=== PATIENT | female | born 1955 | race Caucasian/White ===

== ENCOUNTER → 2018-12-28 10:24 | Outpatient (CLI) | payer SELFPAY ==
--- NOTE | 2018-12-28 10:30 | CT_ITS ---
PROCEDURE: CT HEART W CALCIUM SCORE CLINICAL HISTORY: SCREENING COMPARISON: No exams were available for comparison TECHNIQUE: Axial images obtained with sagittal and coronal reformats. All CT scans at the facility use one or more dose reduction, viz: automated exposure control, ma/kV adjustment per patient size (including targeted exams where dose is matched to indication, i.e. head), or iterative reconstruction technique. FINDINGS: The coronary artery calcium score is 327 indicating a moderate plaque burden with high cardiovascular disease risk. Incidental Degenerative change thoracic spine. Old granulomatous disease IMPRESSION: Moderate plaque burden with high cardiovascular disease risk Dictated by: Paresh Gibbs MD 12/28/2018 18:20 Electronically signed by Paresh Gibbs MD in [place] 12/28/2018 18:20
== END ==
PROVIDERS: Visit Provider Internal Medicine Cardiovascular Disease
DX: Z13.6 Encounter for screening for cardiovascular disorders (principal)
CPT/HCPCS: 75571

== ENCOUNTER → 2019-01-22 07:52 | Outpatient (CLI) | payer BC, SELFPAY ==
--- NOTE | 2019-01-22 | CA_ITS ---
APPROVED REPORT Exam: Pharmacologic Technologist: Noelle Arriaga Ht: 5 ft 2 in Wt: 170 lbs BSA: 1.78 m2 HR: 62 bpm BP: 127/79 mmHg Indications: Abnormal CT Calcium Score Medical History Medications: Lisinopril,,,,, ClARITin,,,,, Ezetimbe,,,,, RoSUVASTATIN,,,,, Stress Test Details Test: Aris HR Resting HR: 67 bpm Max Heart Rate (APMHR): 159 bpm Max HR Achieved: 135 bpm Target HR (85% APMHR): 135 bpm % of APMHR: 84 Recovery HR: 72 bpm BP Resting BP: 127.0/79.0 mmHg Max BP: 184.0/72.0 mmHg Recovery BP: 160.0/84.0 mmHg ECG Clinical Exercise duration: 06:30 min Highest Stage Achieved: Exercise capacity: 7.0 METs Stress ECG Conclusion Resting ECG: Normal sinus rhythm Patient exercised 6:30 on Aris Protocol. Test stopped due to dyspnea, fatigue. Symptoms: No chest pain. Arrhythmias/Ectopy: None ST-T Changes: 1-1.[address] depression inferiorly and laterally. Conclusion: EKG changes positive for ischemia. Myview images reported separately. Test Summary REST . . . . . . . Sitting REST . . . . . . . Standing REST 14:59 0.0 0.0 67 . 127/ 79 . . Stage 1 01:00 10.0 1.7 90 . . . . Stage 1 02:00 10.0 1.7 100 . . . . Stage 1 03:00 10.0 1.7 102 . 170/ 80 . . Stage 2 01:00 12.0 2.5 116 . . . . Stage 2 02:00 12.0 2.5 121 . . . . Stage 2 . . . . . . . Myoview Injected Stage 2 03:00 12.0 2.5 130 . 175/ 76 . . Stage 3 00:30 14.0 3.4 135 . . . Stop exercise at 06:30 RECOVERY 01:00 0.0 0.0 92 . 184/ 72 . . RECOVERY 02:00 0.0 0.0 75 . 184/ 72 . . RECOVERY 03:00 0.0 0.0 76 . 184/ 72 . . RECOVERY 04:00 0.0 0.0 74 . 182/ 90 . . RECOVERY 05:00 0.0 0.0 71 . 160/ 84 . . RECOVERY 05:19 0.0 0.0 72 . 160/ 84 . . Electronically signed by : Rudolph Rivera, 01/23/2019 05:26:10
--- NOTE | 2019-01-22 07:54 | NM_ITS ---
APPROVED REPORT Exam: Nuclear Stress Test Indication: Fatigue, CAD, HTN, High cholesterol, Family history Patient Location: Outpatient Stress Tech: Noelle Arriaga [place] Tech:Hanh Mercado, ARRT, RT (R)(N) Ht: 5 ft 2 in Wt: 170 lbs Bra Size: 42D HR: 62 bpm BP: 127/79 mmHg BSA: 1.78 m2 BMI: 31.0 History: Fatigue, CAD, HTN, High cholesterol, Family history Procedure: Patient exercised on Aris protocol 6:30 minutes and sec, resting heart rate 62 bpm, resting blood pressure 127/79 mmHg, with exercise maximum heart rate achived was 135 bpm which is Greater than 85 % of the maximum predicted heart rate and blood pressure was 175/76 mmHg. Test was stopped due to dyspnea and fatigue. Patient denied any complaint of chest pain. Patient has Adequate exercise capacity, achieved 7.0 METs of workload on treadmill, the blood pressure response to exercise was Adequate. Electrocardiogram Resting electrocardiogram showed sinus rhythm right ventricular conduction delay, with exercise there is [address] segment depression noted from the baseline EKG. The EKG portion of the exercise Myoview is positive for ischemia. Cardiac Stress and Resting SPECT Images: Cardiac Stress and Resting SPECT images were obtained using technetium 99m Myoview 30.8 mCi stress and 10.80 mCi at rest. Gated SPECT with analysis of segmental wall motion and calculation of the ejection fraction also done. Cardiac stress and resting SPECT images show decreased tracer activity and anteroapical wall which improves on the resting images suggestive of reversible ischemia, computer derived ejection fraction is over 65% with no regional wall motion abnormality, right ventricle is normal size and contractility. This is study is technically limited due to patient's body habitus. Conclusion: 1. The EKG portion of the exercise Myoview is positive for ischemia, patient has adequate exercise capacity achieved 7 mets of workload on treadmill, the blood pressure response to exercise was adequate, there was no exercise-induced chest discomfort. 2. Scintigraphic evidence of mild reversible ischemia involving the anteroapical wall, computer derived ejection fraction is over 65% with no regional wall motion abnormality, right ventricle is normal size and contractility. This is study is technically limited due to patient's body habitus. 3. Likely abnormal myocardial perfusion imaging Electronically signed by : Rudolph Rivera, 01/23/2019 05:29:05
--- NOTE | 2019-01-22 07:54 | CA_ITS ---
APPROVED REPORT EXAM: Comprehensive 2D, Doppler, and color-flow Echocardiogram Strategic Planner: Yomaira Espinosa RDCS Ht: 5 ft 2 in Wt: 124lbs BSA: 1.56 BP: 125/67 mmHg Indications: Chest Pain, Shortness of Breath, Hyperlipidemia, Hypertension/HDD,EX SMOKER 2D Dimensions LVOT 1.50 cm (M/F) 1.5-2.5 M-Mode Dimensions RVDd 1.61 cm (0.9-2.6) LVDd 3.72 cm (3.5-5.7) LVDs 2.28 cm (3.5-5.7) IVSd 1.00 cm (0.6-1.1) PWd 1.07 cm (0.6-1.1) EF (Teich) 69.90% FS 38.70% EDV (Teich) 58.90 mL ESV (Teich) 17.70 mL LV Diastology E/A Ratio 0.83 Mitral Valve MV A Velocity 59.00 (40-130 cm/s) Left Ventricle Left atrium is mildly enlarged, left ventricle is normal size, visually estimated ejection fraction 55% with no regional wall motion abnormality, left ventricular wall thickness is upper limit of the normal. Grade 1 diastolic dysfunction seen without tissue Doppler evidence of raise left atrial pressure. Right Ventricle Right atrium and right ventricular normal size and contractility. Aortic Valve Aortic valve is minimally thickened and fibrosed, there is no aortic stenosis or aortic insufficiency. Mitral Valve Mitral valve is grossly normal, there is mild mitral regurgitation. Tricuspid Valve Tricuspid valve is grossly normal, there is mild tricuspid regurgitation. Tricuspid regurgitation jet velocity is inadequate for calculation of the right ventricular systolic pressure. Pulmonic Valve Pulmonic valve is poorly visualized. Great Vessels Aortic root is normal size. Pericardium No significant pericardial effusion noted. Conclusion 1. Mildly enlarged left atrium, normal left ventricular size, mild concentric left ventricular hypertrophy, visually estimated ejection fraction 55% with no regional wall motion abnormality, grade 1 diastolic dysfunction seen without tissue Doppler evidence of raise left atrial pressure. 2. Mild mitral and tricuspid regurgitation. 3. No significant pericardial effusion noted. Electronically signed by : Rudolph Rivera, 01/23/2019 05:40:58
--- NOTE | 2019-01-22 08:48 | HMH.ITSHM ---
Current Home Medications as stated by this patient Aracelis Palmer or motor vehicle field representative. []LISINOPRIL ROSUVASTATIN EZETIMBE CLARITIN
== END ==
PROVIDERS: PCP Internal Medicine; Visit Provider Urology
DX: R93.1 Abnormal findings on diagnostic imaging of heart and coronary circulation (principal); R07.9 Chest pain, unspecified; R06.02 Shortness of breath; I10 Essential (primary) hypertension; Z82.49 Family history of ischemic heart disease and other diseases of the circulatory system; Z87.891 Personal history of nicotine dependence
CPT/HCPCS: 78452; 93017; 93306; A9502

== ENCOUNTER → 2019-02-20 11:00 | Outpatient (CLI) | payer BC, SELFPAY ==
[2019-02-20 11:49] LABS: Anion Gap 14.4 mEq/L (5-15); Blood Urea Nitrogen 17 mg/dL (7-18); Calcium 8.6 mg/dL (8.5-10.1); Carbon Dioxide 27 mmol/L (21.0-32.0); Chloride 102 mmol/L (98-107); Creatinine,Serum 0.87 mg/dL (0.55-1.02); Estimated Glomerular Filt Rate 66 ml/min (>60); GFR (African American) 80 ML/MIN (>60); Glucose 114 mg/dL (74-106); Potassium 4.4 mmoL/L (3.5-5.1); Sodium 139 mmol/L (136-145)
== END ==
PROVIDERS: Visit Provider Urology
DX: I25.10 Atherosclerotic heart disease of native coronary artery without angina pectoris (principal); R42 Dizziness and giddiness; Z82.49 Family history of ischemic heart disease and other diseases of the circulatory system
CPT/HCPCS: 36415; 80048

== ENCOUNTER → 2019-04-05 09:31 | Outpatient (CLI) | payer BC, SELFPAY ==
[2019-04-05 11:23] LABS: Anion Gap 15.3 mEq/L (5-15); Blood Urea Nitrogen 15 mg/dl (7-17); Calcium 9.7 mg/dl (8.4-10.2); Carbon Dioxide 22 mmol/L (22.0-30.0); Chloride 104 mmol/L (98-107); Estimated Glomerular Filt Rate 63 ml/min (>60); GFR (African American) 77 ML/MIN (>60); Glucose 99 mg/dl (74-100); Potassium 4.3 mmoL/L (3.5-5.1); Sodium 137 mmol/L (136-145)
[2019-04-05 11:30] LABS: NT Pro Brain Natriuretic Pep. 102 pg/mL (0-125)
== END ==
PROVIDERS: Visit Provider Internal Medicine Cardiovascular Disease
DX: R06.09 Other forms of dyspnea (principal); I25.10 Atherosclerotic heart disease of native coronary artery without angina pectoris; R53.83 Other fatigue
CPT/HCPCS: 36415; 80048; 83880

== ENCOUNTER → 2019-04-15 09:51 | Outpatient (CLI) | payer BC, SELFPAY ==
--- NOTE | 2019-04-15 09:55 | CA_ITS ---
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 Semiautomatic: Elizabeth Barnett RVT Laterality: Bilateral Study Quality: Excellent Indications: dizziness,face and head tingling Risk Factors Hypertension: Hyperlipidemia Doppler Spectral Velocity Analysis ECA (R) 91.40/16.50 cm/s ECA (L) 86.00/21.20 cm/s dICA (R) 88.00/33.10 cm/s dICA (L) 88.40/35.40 cm/s Anna (R) 36.90/12.00 cm/s Anna (L) 99.00/37.10 cm/s pICA (R) 55.50/16.40 cm/s pICA (L) 86.10/27.70 cm/s dCCA (R) 58.60/16.40 cm/s dCCA (L) 81.30/28.30 cm/s pCCA (R) 110.70/28.40 cm/s pCCA (L) 79.60/20.00 cm/s Vert (R) 74.90/24.80 cm/s Vert (L) 57.80/19.90 cm/s ICA/CCA 1.50 ICA/CCA 1.22 Findings Study suggests no evidence of stenosis in the right internal cartoid artery. Study suggests less than 20% stenosis in the left internal cartoid artery. Antegrade flow seen bilateral vertebral arteries. Conclusion No increased velocities to suggest hemodynamically significant stenosis in either internal carotid artery. Electronically signed by : Paresh Gibbs MD 04/15/2019 17:43:45
== END ==
PROVIDERS: PCP Internal Medicine; Visit Provider Internal Medicine Cardiovascular Disease
DX: Z01.810 Encounter for preprocedural cardiovascular examination (principal); I25.10 Atherosclerotic heart disease of native coronary artery without angina pectoris; R20.2 Paresthesia of skin; R42 Dizziness and giddiness
CPT/HCPCS: 93880

== ENCOUNTER → 2019-06-26 13:05 | Outpatient (CLI) | payer BC, SELFPAY | PROVIDERS: PCP Internal Medicine; Visit Provider Specialist | DX: G47.33 Obstructive sleep apnea (adult) (pediatric) (principal); R06.83 Snoring; I25.10 Atherosclerotic heart disease of native coronary artery without angina pectoris; I10 Essential (primary) hypertension | CPT/HCPCS: G0399 ==

== ENCOUNTER → 2020-11-09 12:23 | Outpatient (CLI) | payer BC, SELFPAY ==
[2020-11-09 12:48] LABS: Basophils # 0.1 K/mm3 (0-0.2); Basophils % 1.2 % (0.1-2.0); Eosinophils # 0.5 K/mm3 (0.0-0.4); Eosinophils % 5.3 % (0.1-12.0); Hematocrit 42.4 % (37.0-47.0); Hemoglobin 13.6 g/dL (12.2-16.2); Lymphocytes # 2.5 K/mm3 (0.7-4.5); Lymphocytes % 29.5 % (10-50); Mean Corpuscular HGB Conc 32.1 g/dL (31.8-35.4); Mean Corpuscular Hemoglobin 30.3 pg (27.0-31.2); Mean Corpuscular Volume 94.6 fl (81-99); Mean Platelet Volume 7.6 fl (7.4-10.4); Monocytes # 0.5 K/mm3 (0.1-1.0); Monocytes % 5.5 % (1.7-9.3); Neutrophils % 58.5 % (37.0-80.0); Platelet Count 389 K/mm3 (142-424); Red Blood Count 4.48 M/mm3 (4.20-5.40); Red Cell Distribution Width 13.4 % (11.5-17.5); White Blood Count 8.6 K/mm3 (4.8-10.8)
[2020-11-09 13:18] LABS: Chloride 102 mmol/L (98-107); Potassium 3.8 mmoL/L (3.5-5.1); Sodium 140 mmol/L (136-145)
[2020-11-09 13:21] LABS: Alanine Aminotransferase 48 U/L (12-78); Albumin Level 4.3 g/dl (3.5-5.0); Albumin/Globulin Ratio 1.5 (1.1-1.8); Alkaline Phosphatase 64 U/L (38-126); Anion Gap 12.8 mEq/L (5-15); Aspartate Amino Transferase 49 U/L (14-36); Blood Urea Nitrogen 17 mg/dl (7-17); Calcium 9.8 mg/dl (8.4-10.2); Carbon Dioxide 29 mmol/L (22.0-30.0); Estimated Glomerular Filt Rate 72 ml/min (>60); GFR (African American) 88 ML/MIN (>60); Globulin 2.9 g/dL (1.3-3.2); Glucose 110 mg/dl (74-100); Total Protein,Serum 7.2 g/dl (6.3-8.2)
== END ==
PROVIDERS: Visit Provider Internal Medicine
DX: Z01.812 Encounter for preprocedural laboratory examination (principal); Z11.52 Encounter for screening for COVID-19; I25.10 Atherosclerotic heart disease of native coronary artery without angina pectoris
CPT/HCPCS: 36415; 80053; 85025; C9803; U0003; U0005

== ENCOUNTER 2020-11-10 09:25 | Day surgery (SDC) | payer BC, SELFPAY ==
[2020-11-10] VITALS (13 sets, daily range): BP systolic 107–138; BP diastolic 58–81; PULSE 52–67; RESP 16–18; O2SAT 93–100; BMI 32.7
--- NOTE | 2020-11-10 07:11 | IR_ITS ---
APPROVED REPORT Patient Location: Outpatient Concrete Finisher: MYCHAL Downey RT (R) PROCEDURES Left heart catheterization Left ventriculogram Selective coronary angiogram INDICATION Known coronary artery disease, Progressive angina pectoris, Class IV angina Informed consent was obtained prior to the procedure. Estimated Blood Loss: less than 10 ml TECHNIQUE One percent lidocaine used to anesthetize the right anterior aspect of the wrist. The right radial artery was accessed via the Seldinger technique. A 6 Lib[place] sheath was placed in the right radial artery. 2.5 mg of verapamil, 800 mcg of nitroglycerin, 1mg Lidocaine and 5000 U Heparin were given through the arterial sheath. The trap catheter was also used to perform left heart catheterization, left ventriculogram and selective coronary angiogram. At the end of the procedure the sheath was removed good hemostasis was achieved using Traclet band, patient was transferred to the postop holding area in stable condition. ANGIOGRAPHIC RESULTS The left main artery Normal The left anterior descending artery Has a stent in the proximal segment which is widely patent free of in-stent restenosis with excellent proximal distal transitioning. The remaining LAD has 30% stenoses with a mid vessel 30 to 40% myocardial bridge. A large first diagonal artery or ramus intermedius branches off very proximally and has at least a 50% stenosis. This is a large diagonal system which bifurcates. RUPESH-3 flow was present The circumflex artery Is a nondominant vessel and has mid vessel 40 to 50% stenoses supplying a bifurcating 2 mm obtuse marginal artery system The right coronary artery Is a dominant vessel and has an ostial 30 to 40% stenosis with a mid vessel 40 to 50% stenosis The GUERRERO ventriculogram reveals Hyperdynamic at 70 to 75% The left ventricular end-diastolic pressure 20 mmHg IMPRESSION Diffuse coronary disease as described above Patent proximal LAD stent Hyperdynamic ventricle Mildly elevated LVEDP PLAN 1. Patient has diffuse coronary disease as described above none of which I believe is producing angina pectoris and would benefit from stenting 2. At this point I recommend maximizing antianginal medications and adding a negative inotrope 3. We will treat with high intensity statin to goal LDL less than 55 4. While with possible to have performed FFR on the circumflex artery and the right coronary artery I do believe medical management is most warranted. If medication changes fail to improve patient's symptoms I would consider bringing her back and performing FFR to determine if percutaneous revascularization would be beneficial. Patient's blood vessels are not very large and I do believe medical management would be most warranted at this time Electronically signed by : Tacos Bentley MD 11/10/2020 10:49:25
== END 2020-11-10 13:30 | disposition home or self-care (01) ==
PROVIDERS: PCP Internal Medicine; Visit Provider Internal Medicine
DX: I25.118 Atherosclerotic heart disease of native coronary artery with other forms of angina pectoris (principal); Z95.5 Presence of coronary angioplasty implant and graft; Z79.899 Other long term (current) drug therapy; Z88.3 Allergy status to other anti-infective agents; I65.22 Occlusion and stenosis of left carotid artery; I11.0 Hypertensive heart disease with heart failure
CPT/HCPCS: 93458; 99152; C1725; C1769; J1644; Q9967

== ENCOUNTER → 2020-11-24 16:22 | Outpatient (CLI) | payer BC, SELFPAY ==
[2020-11-24 22:42] LABS: Anion Gap 15.9 mEq/L (5-15); Blood Urea Nitrogen 20 mg/dl (7-17); Calcium 9.8 mg/dl (8.4-10.2); Carbon Dioxide 30 mmol/L (22.0-30.0); Chloride 100 mmol/L (98-107); Estimated Glomerular Filt Rate 56 ml/min (>60); GFR (African American) 68 ML/MIN (>60); Glucose 103 mg/dl (74-100); Potassium 3.9 mmoL/L (3.5-5.1); Sodium 142 mmol/L (136-145)
== END ==
PROVIDERS: Visit Provider Nurse Practitioner Family
DX: R06.00 Dyspnea, unspecified (principal); R00.1 Bradycardia, unspecified; I25.10 Atherosclerotic heart disease of native coronary artery without angina pectoris; I45.10 Unspecified right bundle-branch block; I10 Essential (primary) hypertension; E78.2 Mixed hyperlipidemia; Z87.891 Personal history of nicotine dependence
CPT/HCPCS: 36415; 80048

== ENCOUNTER → 2022-07-05 10:29 | Outpatient (CLI) | payer MEDICARE, SELFPAY ==
[2022-07-05 11:37] LABS: Basophils # 0.1 K/mm3 (0-0.2); Basophils % 0.8 % (0.1-2.0); Eosinophils # 0.4 K/mm3 (0.0-0.4); Eosinophils % 4.2 % (0.1-12.0); Hematocrit 41.9 % (37.0-47.0); Hemoglobin 13.7 g/dL (12.2-16.2); Lymphocytes # 2.7 K/mm3 (0.7-4.5); Mean Corpuscular HGB Conc 32.6 g/dL (31.8-35.4); Mean Corpuscular Hemoglobin 30.4 pg (27.0-31.2); Mean Corpuscular Volume 93.2 fl (81-99); Mean Platelet Volume 7.7 fl (7.4-10.4); Monocytes # 0.5 K/mm3 (0.1-1.0); Monocytes % 5.9 % (1.7-9.3); Neutrophils # 5.3 K/mm3 (1.8-7.8); Neutrophils % 59.2 % (37.0-80.0); Platelet Count 353 K/mm3 (142-424); Red Cell Distribution Width 13.8 % (11.5-17.5); White Blood Count 8.9 K/mm3 (4.8-10.8)
[2022-07-05 12:33] LABS: Chloride 99 mmol/L (98-107); Potassium 4.7 mmoL/L (3.5-5.1); Sodium 142 mmol/L (136-145)
[2022-07-05 12:35] LABS: Blood Urea Nitrogen 17 mg/dl (7-17); Estimated Glomerular Filt Rate 72 ml/min (>60); GFR (African American) 87 ML/MIN (>60)
[2022-07-05 12:36] LABS: Alanine Aminotransferase 45 U/L (12-78); Albumin Level 4.3 g/dl (3.5-5.0); Alkaline Phosphatase 74 U/L (38-126); Anion Gap 16.7 mEq/L (5-15); Aspartate Amino Transferase 42 U/L (14-36); Bilirubin,Indirect 0.6 mg/dL (0.0-0.9); Bilirubin,Total 0.6 mg/dl (0.2-1.3); Bilirubin,Unconjugated 0.7 mg/dL (0.0-1.1); Calcium 9.8 mg/dl (8.4-10.2); Carbon Dioxide 31 mmol/L (22.0-30.0); Cholesterol 130 mg/dl (140-200); Glucose 95 mg/dl (74-100); Magnesium 1.9 mg/dl (1.6-2.3); Total Protein,Serum 7.1 g/dl (6.3-8.2); Triglycerides 177 mg/dl (30-150); VLDL Cholesterol 35 mg/dL (0-40)
[2022-07-05 12:37] LABS: Chol/HDL Ratio 2.2 (1-3.5); HDL Cholesterol 58 mg/dl (40-60)
[2022-07-05 12:48] LABS: Direct LDL Cholesterol 60.66 mg/dL (100-129)
[2022-07-05 12:52] LABS: Free T4 (Free Thyroxine) 1.22 ng/dl (0.78-2.19)
[2022-07-05 13:09] LABS: Thyroid Stimulating Hormone 0.09 uIU/mL (0.465-4.68)
== END ==
PROVIDERS: Visit Provider Physician Assistant
DX: E78.2 Mixed hyperlipidemia (principal); I10 Essential (primary) hypertension; I65.22 Occlusion and stenosis of left carotid artery; R00.2 Palpitations; R26.81 Unsteadiness on feet; R94.30 Abnormal result of cardiovascular function study, unspecified; I20.8 Other forms of angina pectoris
CPT/HCPCS: 36415; 80048; 80061; 80076; 83735; 84439; 84443; 85025

== ENCOUNTER → 2022-07-26 07:30 | Outpatient (CLI) | payer MEDICARE, SELFPAY ==
--- NOTE | 2022-07-26 07:31 | NM_ITS ---
APPROVED REPORT Exam: Nuclear Stress Test Indication: CAD, 1 STENT, HTN, HYPERLIPIDEMIA, FM HX, SOB, DIZZINESS, FATIGUE Patient Location: Outpatient Stress Tech: Rehana Garrett [place] Tech:MYCHAL Maddox RT (R)(N)(M) Ht: 5 ft 2 in Wt: 187 lbs Bra Size: D HR: 54 bpm BP: 158/77 mmHg BSA: 1.86 m2 TID: 1.18 BMI: 34.1 History: CAD, 1 STENT, HTN, HYPERLIPIDEMIA, FM HX, SOB, DIZZINESS, FATIGUE Procedure: Patient exercised on Aris protocol 6:30 minutes and sec, resting heart rate 54 bpm, resting blood pressure 158/77 mmHg, with exercise maximum heart rate achived was 118 bpm which is 76 % of the maximum predicted heart rate and blood pressure was 180/68 mmHg. Test was stopped due to SOB. Patient denied any complaint of chest pain. Patient has exercise capacity, achieved 7.0 METs of workload on treadmill, the blood pressure response to exercise was . Cardiac Stress and Resting SPECT Images: Cardiac Stress and Resting SPECT images were obtained using technetium 99m Myoview 31.0 mCi stress and 10.33 mCi at rest. Resting and stress imaging in both supine and prone positions demonstrate no evidence of fixed or reversible perfusion defects. Gated imaging demonstrates a normal global and regional LV systolic function. LVEF is calculated at 70%. Conclusion: No evidence of fixed or reversible perfusion defects. Gated imaging demonstrates a normal global and regional LV systolic function. LVEF is calculated at 70%. Electronically signed by : Anel Hale, 07/26/2022 18:21:12
--- NOTE | 2022-07-26 08:46 | CA_ITS ---
FINAL REPORT TECHNIQUE: Color Doppler, duplex Doppler and medina scale sonography of the bilateral neck arterial vasculature was performed. Velocities were measured in the carotid arteries. Stenosis evaluation based on the validated velocity criteria. CLINICAL HISTORY: JAY, dizziness, HTN, ex smoker, hyperlipidemia, CAD FINDINGS: The peak systolic velocity of the right common carotid artery is 72.7 cm/s. The peak systolic velocity of the right internal carotid artery is 97.3 cm/s and end diastolic velocity 26 cm/s. A small amount of plaque is present. The right external carotid artery is patent. The right vertebral artery is patent with antegrade flow. The peak systolic velocity of the left common carotid artery is 112.2 cm/s. The peak systolic velocity of the left internal carotid artery is 89 cm/s and end diastolic velocity 28.4 cm/s. A small amount of plaque is present. The left external carotid artery is patent.The left vertebral artery is patent with antegrade flow. IMPRESSION: Less than 50% bilateral carotid stenoses. Bilateral patent vertebral arteries with antegrade flow. If indicated, CTA or MRA could further evaluate. Reviewed, Interpreted and Dictated by Owen Pedersen III, MD Transcribed by yMa Rios Authenticated and . [facility]
--- NOTE | 2022-07-26 08:52 | CA_ITS ---
APPROVED REPORT Exam: Pharmacologic Technologist: Rehana Sawant, Ht: 5 ft 2 in Wt: 184 lbs BSA: 1.85 m2 HR: 54 bpm BP: 158/77 mmHg Rhythm: Sinus bradycardia Medical History Medications: Aspirin,,,,, Vitamin D3,,,,, Flonase,,,,, Lasix,,,,, BisOPROLOL Fumarate,,,,, CetIRIZINE,,,,, RoSUVASTATIN,,,,, Coenzyme Q10,,,,, DilTiazem HCI,,,,, Stress Test Details Test: Manual Treadmill HR Resting HR: 56 bpm Max Heart Rate (APMHR): 155 bpm Max HR Achieved: 118 bpm Target HR (85% APMHR): 132 bpm % of APMHR: 76 Recovery HR: 67 bpm HR response to stress: Blunted HR response to stress BP Resting BP: 158.0/81.0 mmHg Max BP: 180.0/68.0 mmHg Recovery BP: 176.0/62.0 mmHg BP response to stress: Normal blood pressure response to stress. ECG Resting ECG: sinus bradycardia, 1st degree AVB Stress EC mm horizontal ST depression Maximum ST Deviation: 1 mm Arrhythmia: None Recovery ECG: Return to baseline within 5 minutes of recovery Recovery Arrhythmia: None Clinical Reason for Termination: Dyspnea Exercise duration: 06:00 min Highest Stage Achieved: II Exercise capacity: 7.0 METs Overall Exercise Capacity for Age: Average Stress ECG Conclusion Max HR: 118 % of PM: 76% Max BP: 180/68 METs: 7.0 Test stopped due to: SOA Symptoms: Dyspnea, fatigue. No CP. Arrhytmias: None ST-T Changes: Approx [address] depression inferiorly and laterally. This was a suboptimal exercise stress test due to inabiity to achieve > 85% max HR. The patient walked 6:00 on Aris Protcol with speed decreased to 2.1 mph to last 30 seconds due to SOA. The patient achieved a total of 7 METs, exhibiting an average exercise capacity compared to age and sex matched peers. She had a blunted HR response but a normal BP response to exercise. At baseline, ECG demonstrated sinus bradycardia. At peak stress, she had [address] depression in the inferolateral leads, with subsequent return to baseline within 5 minutes of recovery. ECG findings are suggestive of possible ischemia in the setting of suboptimal HR for stress evaluation. Myoview images are reported separately. Test Summary REST . . . . . . . Sitting REST . . . . . . . Standing REST 06:54 0.0 0.0 56 . 158/ 81 . . Stage 1 01:00 10.0 1.7 75 . . . . Stage 1 02:00 10.0 1.7 88 . . . . Stage 1 03:00 10.0 1.7 95 . 180/ 68 . . Stage 2 01:00 12.0 2.5 101 . . . . Stage 2 02:00 12.0 2.5 112 . . . . Stage 2 . . . . . . . Protocol changed to Manual Treadmill Stage 2 03:00 12.0 2.1 117 . . . Stop exercise at 06:00 RECOVERY 01:00 0.0 0.0 96 . . . . RECOVERY 02:00 0.0 0.0 78 . . . . RECOVERY 03:00 0.0 0.0 73 . 176/ 68 . . RECOVERY 04:00 0.0 0.0 69 . 163/ 68 . . RECOVERY 05:00 0.0 0.0 67 . 163/ 68 . . RECOVERY 05:50 0.0 0.0 66 . 176/ 62 . . Electronically signed by : Anel Hale, 07/26/2022 18:17:43
== END ==
PROVIDERS: Visit Provider Physician Assistant
DX: E78.2 Mixed hyperlipidemia (principal); I10 Essential (primary) hypertension; I65.22 Occlusion and stenosis of left carotid artery; R00.2 Palpitations; R26.81 Unsteadiness on feet; R94.30 Abnormal result of cardiovascular function study, unspecified; I20.8 Other forms of angina pectoris
CPT/HCPCS: 78452; 93017; 93306; 93880; A9502

== ENCOUNTER 2023-05-26 15:53 | Emergency (ER) | payer MEDICARE, SELFPAY ==
[2023-05-26] VITALS (7 sets, daily range): BP systolic 137–193; BP diastolic 68–86; PULSE 53–57; RESP 12–19; TEMP 36.6; O2SAT 96–100; BMI 33.3
--- NOTE | 2023-05-26 15:48 | ECG_ITS ---
APPROVED REPORT Exam: Resting ECG HR:62 bpm ECG Measurements Heart Rate 62 AXES DC 198 P 49 QRSd 101 QRS 73 QT 433 T 43 QTc 438 Conclusion SINUS RHYTHM INCOMPLETE RIGHT BUNDLE BRANCH BLOCK [90+ ms QRS DURATION, TERMINAL R IN V1/V2, 40+ ms S IN I/aVL/V4/V5/V6] BORDERLINE ECG Electronically signed by : ANDRES SMITH, 05/26/2023 20:48:44
--- NOTE | 2023-05-26 16:34 | XR_ITS ---
PROCEDURE INFORMATION: Exam: XR Left Shoulder Exam date and time: 05/26/2023 4:46 PM Age: 68 years old Clinical indication: Pain; Shoulder; Left TECHNIQUE: Imaging protocol: Radiologic exam of the left shoulder. Views: 2 or more views. COMPARISON: CR XR CHEST PORTABLE 05/26/2023 4:46 PM FINDINGS: Bones/joints: Moderate degenerative changes of the glenohumeral and AC joint. No acute fracture identified. Soft tissues: Normal. IMPRESSION: No acute abnormality.
--- NOTE | 2023-05-26 16:34 | XR_ITS ---
PROCEDURE INFORMATION: Exam: XR Chest Exam date and time: 05/26/2023 4:46 PM Age: 68 years old Clinical indication: Pain; Chest pressure; Additional info: L chest pain TECHNIQUE: Imaging protocol: Radiologic exam of the chest. Views: 1 view. COMPARISON: CT HEART W CALCIUM SCORE 12/28/2018 10:51 AM FINDINGS: Lungs: Unremarkable. No consolidation. Pleural spaces: Unremarkable. No pleural effusion. No pneumothorax. Heart/Mediastinum: Unremarkable. No cardiomegaly. Bones/joints: Unremarkable. IMPRESSION: No acute findings.
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
[2023-05-26 16:45] LABS: Basophils # 0.1 K/mm3 (0-0.2); Basophils % 1.2 % (0.1-2.0); Eosinophils # 0.4 K/mm3 (0.0-0.4); Eosinophils % 3.9 % (0.1-12.0); Hematocrit 45.1 % (37.0-47.0); Hemoglobin 14.7 g/dL (12.2-16.2); Lymphocytes % 29.1 % (10-50); Mean Corpuscular HGB Conc 32.7 g/dL (31.8-35.4); Mean Corpuscular Hemoglobin 30.8 pg (27.0-31.2); Mean Corpuscular Volume 94.2 fl (81-99); Mean Platelet Volume 8.8 fl (7.4-10.4); Monocytes # 0.6 K/mm3 (0.1-1.0); Monocytes % 6.1 % (1.7-9.3); Neutrophils # 6.2 K/mm3 (1.8-7.8); Neutrophils % 59.7 % (37.0-80.0); Platelet Count 350 K/mm3 (142-424); Red Blood Count 4.79 M/mm3 (4.20-5.40); Red Cell Distribution Width 13.5 % (11.5-17.5); White Blood Count 10.4 K/mm3 (4.8-10.8)
[2023-05-26] MEDS: LIDOCAINE 5% TRANSDERMAL PATCH 1 EACH TP (16:56)
[2023-05-26] MEDS: METHOCARBAMOL 500MG TABLET 1000 MG PO (16:56)
[2023-05-26 17:01] LABS: Troponin I 0.02 ng/ml (0.00-0.034)
[2023-05-26 17:04] LABS: Chloride 108 mmol/L (98-107); Potassium 3.9 mmoL/L (3.5-5.1); Sodium 142 mmol/L (136-145)
[2023-05-26 17:07] LABS: Alanine Aminotransferase 66 U/L (12-78); Albumin Level 4.4 g/dl (3.5-5.0); Albumin/Globulin Ratio 1.5 (1.1-1.8); Alkaline Phosphatase 73 U/L (38-126); Anion Gap 10.9 mEq/L (5-15); Aspartate Amino Transferase 61 U/L (14-36); Bilirubin,Total 1.4 mg/dl (0.2-1.3); Blood Urea Nitrogen 21 mg/dl (7-17); Calcium 9.7 mg/dl (8.4-10.2); Carbon Dioxide 27 mmol/L (22.0-30.0); Creatinine Clearance Estimated 72 mL/min (50-200); Estimated Glomerular Filt Rate 72 ml/min (>60); GFR (African American) 87 ML/MIN (>60); Glucose 106 mg/dl (74-100); Total Protein,Serum 7.4 g/dl (6.3-8.2)
--- NOTE | 2023-05-26 17:25 | PC.NURSE ---
Rounded on patient. No needs at this time.
--- NOTE | 2023-05-26 18:05 | PC.NURSE ---
Rounded on patient, no concerns at this time.
[2023-05-26 20:14] LABS: Troponin I < 0.01 ng/ml (0.00-0.034)
--- NOTE | 2023-05-26 20:14 | PC.NURSE ---
I called lab to see how much longer on the second troponin. I was told it has 2minutes left.
== END 2023-05-26 20:31 | disposition home or self-care (01) ==
PROVIDERS: Emergency Provider Emergency Medicine
DX: R07.9 Chest pain, unspecified (principal); M25.512 Pain in left shoulder; I11.9 Hypertensive heart disease without heart failure; I25.119 Atherosclerotic heart disease of native coronary artery with unspecified angina pectoris
CPT/HCPCS: 71045; 73030; 80053; 84484; 85025; 93005; 99284

== ENCOUNTER 2023-07-04 09:06 | Emergency (ER) | payer MEDICARE, SELFPAY ==
[2023-07-04] VITALS (7 sets, daily range): BP systolic 111–183; BP diastolic 52–88; PULSE 61–73; RESP 13–18; TEMP 36.6–36.7; O2SAT 95–99
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
--- NOTE | 2023-07-04 09:15 | PC.NURSE ---
XRay at bedside for portable films.
[2023-07-04] MEDS: KETOROLAC 30MG/ML VIAL 15 MG IV (09:25)
[2023-07-04] MEDS: LACTATED RINGERS 1000ML 1,000 ML 999 ML IV (09:25)
[2023-07-04] MEDS: ACETAMINOPHEN 1,000MG/100ML VIAL 1000 MG IV (09:25)
[2023-07-04 09:32] LABS: Alanine Aminotransferase 58 U/L (12-78); Albumin Level 4.9 g/dl (3.5-5.0); Albumin/Globulin Ratio 1.4 (1.1-1.8); Alkaline Phosphatase 68 U/L (38-126); Anion Gap 16.1 mEq/L (5-15); Aspartate Amino Transferase 67 U/L (14-36); Bilirubin,Total 1.7 mg/dl (0.2-1.3); Blood Urea Nitrogen 24 mg/dl (7-17); Calcium 9.5 mg/dl (8.4-10.2); Carbon Dioxide 27 mmol/L (22.0-30.0); Chloride 100 mmol/L (98-107); Estimated Glomerular Filt Rate 72 ml/min (>60); GFR (African American) 87 ML/MIN (>60); Globulin 3.6 g/dL (1.3-3.2); Glucose 106 mg/dl (74-100); Lipase 167 U/L (23-300); Potassium 4.1 mmoL/L (3.5-5.1); Sodium 139 mmol/L (136-145); Total Protein,Serum 8.5 g/dl (6.3-8.2)
[2023-07-04 09:35] LABS: Activated Partial Thrombo Time 23.8 seconds (22.8-30.6); INR 1.06 (0.9-1.1); Prothrombin Time 11.4 seconds (10.1-12.5)
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
[2023-07-04 09:45] LABS: Troponin I < 0.01 ng/ml (0.00-0.034)
[2023-07-04 09:50] LABS: Basophils # 0.1 K/mm3 (0-0.2); Basophils % 0.8 % (0.1-2.0); Eosinophils # 2.2 K/mm3 (0.0-0.4); Eosinophils % 15.6 % (0.1-12.0); Hematocrit 45.4 % (37.0-47.0); Hemoglobin 14.9 g/dL (12.2-16.2); Lymphocytes # 2.6 K/mm3 (0.7-4.5); Lymphocytes % 18.8 % (10-50); Mean Corpuscular HGB Conc 32.9 g/dL (31.8-35.4); Mean Corpuscular Hemoglobin 31.1 pg (27.0-31.2); Mean Corpuscular Volume 94.7 fl (81-99); Mean Platelet Volume 8.1 fl (7.4-10.4); Monocytes # 0.6 K/mm3 (0.1-1.0); Monocytes % 4.1 % (1.7-9.3); Neutrophils # 8.3 K/mm3 (1.8-7.8); Neutrophils % 60.7 % (37.0-80.0); Platelet Count 293 K/mm3 (142-424); Red Cell Distribution Width 13.9 % (11.5-17.5); White Blood Count 13.7 K/mm3 (4.8-10.8)
[2023-07-04] MEDS: 0.9 % SODIUM CHLORIDE 50 ML VIAL 100 ML IV (10:28)
[2023-07-04] MEDS: IOPAMIDOL-370 (76%);100ML BOTTLE 200 ML IV (10:29)
[2023-07-04] MEDS: SODIUM CHLORIDE 0.9% 10ML SYR (RAD ONLY) 10 ML IV (10:29)
[2023-07-04 11:54] LABS: Microscopic, Urine URINE MICROSCOPIC (MICROSCOPIC)
[2023-07-04 11:58] LABS: Appearance,Urine CLEAR (Clear); Bilirubin,Urine Negative (Negative); Blood, Urine Negative (Negative); Color,Urine YELLOW (Yellow); Glucose,Urine (UA) Negative (Negative); Ketones,Urine Negative (Negative); Leukocyte Esterase,Urine Negative (Negative); Nitrate,Urine POSITIVE (Negative); Protein,Urine Negative (Negative); Specific Gravity, Urine <= 1.005 (1.005-1.030); Urobilinogen,Urine 0.2 EU/dl (0.2)
[2023-07-04 12:19] LABS: Bacteria,Urine 2+ /lpf; Squamous Epithelial Cell,Urine Occasional #/hpf (0-5)
--- NOTE | 2023-07-06 10:36 | PC.NURSE ---
LEFT MESSAGE WITH PT
--- NOTE | 2023-07-06 10:50 | PC.NURSE ---
Accessed pt chart to complete ortho paperwork
--- NOTE | 2023-07-06 11:08 | PC.NURSE ---
SPOKE WITH PT, UPDATED ON NEW MEDICATED. QUESTIONS ENCOURAGED AND ANSWERED AT THIS TIME
== END 2023-07-04 12:25 | disposition home or self-care (01) ==
PROVIDERS: Emergency Provider Emergency Medicine
DX: S52.514A Nondisplaced fracture of right radial styloid process, initial encounter for closed fracture (principal); R07.9 Chest pain, unspecified; R10.9 Unspecified abdominal pain; N39.0 Urinary tract infection, site not specified; B96.29 Other Escherichia coli [E. coli] as the cause of diseases classified elsewhere; V03.00XA Pedestrian on foot injured in collision with car, pick-up truck or van in nontraffic accident, initial encounter; Z87.891 Personal history of nicotine dependence
CPT/HCPCS: 70450; 70496; 70498; 71045; 71275; 72125; 72128; 72131; 72170; 72192; 73080; 73090; 73110; 73130; 74174; 80053; 81001; 83690; 84484; 85025; 85610; 85730; 87086; 87088; 87186; 96361; 96374; 96375; 99291; J0131; Q9967

== ENCOUNTER 2023-11-21 13:43 | Outpatient (CLI) | payer MEDICARE, SELFPAY ==
[2023-11-21 14:32] LABS: Basophils # 0.1 K/mm3 (0-0.2); Eosinophils # 0.4 K/mm3 (0.0-0.4); Eosinophils % 3.7 % (0.1-12.0); Hematocrit 52.4 % (37.0-47.0); Hemoglobin 17.5 g/dL (12.2-16.2); Lymphocytes % 19.4 % (10-50); Mean Corpuscular HGB Conc 33.4 g/dL (31.8-35.4); Mean Corpuscular Volume 92.9 fl (81-99); Mean Platelet Volume 7.7 fl (7.4-10.4); Monocytes # 0.5 K/mm3 (0.1-1.0); Monocytes % 5.1 % (1.7-9.3); Neutrophils # 7.4 K/mm3 (1.8-7.8); Neutrophils % 70.8 % (37.0-80.0); Platelet Count 202 K/mm3 (142-424); Red Blood Count 5.64 M/mm3 (4.20-5.40); Red Cell Distribution Width 13.3 % (11.5-17.5); White Blood Count 10.4 K/mm3 (4.8-10.8)
[2023-11-21 14:48] LABS: Albumin Level 4.5 g/dl (3.5-5.0); Chloride 101 mmol/L (98-107); Potassium 4.1 mmoL/L (3.5-5.1); Sodium 139 mmol/L (136-145)
[2023-11-21 14:50] LABS: Alanine Aminotransferase 49 U/L (12-78); Anion Gap 15.1 mEq/L (5-15); Aspartate Amino Transferase 41 U/L (14-36); Bilirubin,Unconjugated 1.1 mg/dL (0.0-1.1); Blood Urea Nitrogen 14 mg/dl (7-17); Carbon Dioxide 27 mmol/L (22.0-30.0); Estimated Glomerular Filt Rate 55 ml/min (>60); GFR (African American) 67 ML/MIN (>60)
[2023-11-21 14:51] LABS: Alkaline Phosphatase 68 U/L (38-126); Bilirubin,Indirect 1.1 mg/dL (0.0-0.9); Bilirubin,Total 1.1 mg/dl (0.2-1.3); Calcium 9.7 mg/dl (8.4-10.2); Chol/HDL Ratio 2.9 (1-3.5); Cholesterol 130 mg/dl (140-200); Glucose 86 mg/dl (74-100); HDL Cholesterol 45 mg/dl (40-60); Magnesium 1.8 mg/dl (1.6-2.3); Total Protein,Serum 7.1 g/dl (6.3-8.2); Triglycerides 174 mg/dl (30-150); VLDL Cholesterol 35 mg/dL (0-40)
[2023-11-21 14:55] LABS: Free T4 (Free Thyroxine) 1.48 ng/dl (0.78-2.19)
[2023-11-21 15:06] LABS: Direct LDL Cholesterol 62.34 mg/dL (100-129)
[2023-11-21 15:27] LABS: Troponin I < 0.01 ng/ml (0.00-0.034)
[2023-11-21 15:40] LABS: Thyroid Stimulating Hormone 1.56 uIU/mL (0.465-4.68)
== END 2023-11-21 23:59 | disposition home or self-care (01) ==
LOC: LAB 15:47
PROVIDERS: Visit Provider Nurse Practitioner Family
DX: I10 Essential (primary) hypertension (principal); E78.2 Mixed hyperlipidemia; I25.10 Atherosclerotic heart disease of native coronary artery without angina pectoris; R07.9 Chest pain, unspecified; R53.83 Other fatigue; I65.22 Occlusion and stenosis of left carotid artery; R94.30 Abnormal result of cardiovascular function study, unspecified
CPT/HCPCS: 36415; 80048; 80061; 80076; 83735; 84439; 84443; 84484; 85025

== ENCOUNTER 2023-12-04 13:56 | Outpatient (CLI) | payer MEDICARE, SELFPAY ==
--- NOTE | 2023-12-04 14:01 | CA_ITS ---
APPROVED REPORT EXAM: Comprehensive 2D, Doppler, and color-flow Echocardiogram Microfabrication Engineer Manager: Elizabeth Barnett RVT Ht: 5 ft 2 in Wt: 183lbs BSA: 1.84 BP: 150/64 mmHg Indications: ANGINA,CAD,RBBB,PALPS,TORRES,FATIGUE,EX-SMOKER,EDEMA,HTN,HLD M-Mode Dimensions RVDd 2.38 cm (0.9-2.6) LA Diam 3.48 cm (1.9-4.0) LVDd 4.06 cm (3.5-5.7) LVDs 2.55 cm (3.5-5.7) IVSd 0.87 cm (0.6-1.1) PWd 0.40 cm (0.6-1.1) EF (Teich) 67.70% FS 37.20% EDV (Teich) 72.50 mL ESV (Teich) 23.40 mL LV Diastology E Decel Time 167 (160-240 msec) E/A Ratio 0.6 Aortic Valve AI PHT 446.00 ms AO Peak GR. 5.50 mmHg Mitral Valve MV E Max Jeanmarie. 56.0 (40-130 cm/s) MV A Velocity 90.0 (40-130 cm/s) E/A Ratio 0.62 MV PHT 49.0 ms Pulmonary Valve PV Peak Velocity 86.0 (50-150 cm/s) Tricuspid Valve TR P. Velocity 235.00 cm/s RAP Estimate 10.00 mmHg RVSP 32.00 mmHg Left Ventricle The left ventricle is normal size. The left ventricular systolic function is normal. The left ventricular ejection fraction is within the normal range. There is increased LV wall thickness. There is normal LV segmental wall motion. Transmitral Doppler flow pattern suggests impaired LV relaxation. LVEF is 55%. Right Ventricle Right ventricle is mildly dilated. The right ventricular systolic function is normal. Atria The left atrium size is normal. The right atrium size is normal. There is no Doppler evidence of interatrial shunt. Aortic Valve The aortic valve is mildly thickened. There is no aortic valvular stenosis. Mild aortic regurgitation is present. Mitral Valve The mitral valve leaflets are mildly thickened. Trace mitral regurgitation. No evidence of mitral valve stenosis. Tricuspid Valve Tricuspid valve is grossly normal in structure and function. Mild tricuspid regurgitation. RVSP is 20-25 mmHg. Pulmonic Valve The pulmonary valve is normal in structure. Trace pulmonic regurgitation. Great Vessels The aortic root is normal in size. The ascending aorta is normal in size. IVC is normal in size and collapses >50% with inspiration. Pericardium There is no pericardial effusion. Other Information Study Quality: Technically Difficult Conclusion Technically difficult study due to poor acoustic windows. Normal LV systolic function. Mild RV dilation with normal RV function. Mild AI, mild TR. Electronically signed by : Anel Hale MD 12/10/2023 00:22:24
== END 2023-12-04 23:59 | disposition home or self-care (01) ==
LOC: RT 13:59
PROVIDERS: Visit Provider Nurse Practitioner Family
DX: I51.7 Cardiomegaly (principal); I25.10 Atherosclerotic heart disease of native coronary artery without angina pectoris; R07.9 Chest pain, unspecified
CPT/HCPCS: 93306

== ENCOUNTER 2023-12-05 07:07 | Outpatient (CLI) | payer MEDICARE, SELFPAY ==
--- NOTE | 2023-12-05 07:11 | NM_ITS ---
APPROVED REPORT Exam: Nuclear Stress Test Indication: Chest pain, HTN, High cholesterol, Family history, CAD Patient Location: Outpatient Stress Tech: Noelle RODRIGUEZ Tech:Hanh Mercado, ARRT, RT (R)(N) Ht: 5 ft 2 in Wt: 183 lbs Bra Size: 42D HR: 61 bpm BP: 150/72 mmHg BSA: 1.84 m2 Rhythm: NSR TID: 1.35 BMI: 33.4 History: Chest pain, HTN, High cholesterol, Family history, CAD Procedure: Patient received 0.4 mg of intravenous Lexiscan, resting heart rate 61 bpm, resting blood pressure 150/72 mmHg, with Lexiscan maximum heart rate achieved was 91 bpm which is % of the maximum predicted heart rate and blood pressure was 150/72 mmHg. With Lexiscan, patient denied any complaint of chest pain. Cardiac Stress and Resting SPECT Images: Cardiac Stress and Resting SPECT images were obtained using technetium 99m Myoview 24.7 mCi stress and 8.45 mCi at rest. Resting atrial fibrillation 2 pericardial effusion straight no evidence of fixed or reversible perfusion defects. There is increase in transient ischemic dilatation ratio (TID 1.35), suggestive of possible multivessel disease or balanced ischemia. Gated imaging demonstrates normal global and regional LV systolic function. LVEF is calculated at > 75%. Conclusion: No evidence of fixed or reversible perfusion defects. There is increase in transient ischemic dilatation ratio (TID 1.35), suggestive of possible multivessel disease or balanced ischemia. Gated imaging demonstrates normal global and regional LV systolic function. LVEF is calculated at > 75%. In the setting of presence of TID and a normal LV systolic function, further evaluation noninvasively with CCTA suggested prior to proceeding with invasive coronary angiography, if clinically feasible. Electronically signed by : Anel Hale MD 12/06/2023 13:01:46
--- NOTE | 2023-12-05 07:11 | CA_ITS ---
APPROVED REPORT Exam: Pharmacologic Technologist: Noelle Arriaga Ht: 5 ft 2 in Wt: 183 lbs BSA: 1.84 m2 HR: 62 bpm BP: 150/72 mmHg Rhythm: NSR Indications: Angina, CAD Medical History Medications: Aspirin,,,,, Vitamin D3,,,,, BisOPROLOL Fumarate,,,,, RoSUVASTATIN,,,,, Co Q10,,,,, CetIRIizine,,,,, Furosemide,,,,, Macrobid,,,,, DilTiazem HCI CD,,,,, Stress Test Details Test: LEXISCAN HR Resting HR: 61 bpm Max Heart Rate (APMHR): 154 bpm Max HR Achieved: 91 bpm Target HR (85% APMHR): 131 bpm % of APMHR: 59 Recovery HR: 74 bpm BP Resting BP: 150.0/72.0 mmHg Max BP: 150.0/72.0 mmHg Recovery BP: 149.0/74.0 mmHg ECG Resting ECG: Sinus bradycardia Stress ECG: No significant ST changes Arrhythmia: None Clinical Exercise duration: 04:00 min Highest Stage Achieved: Exercise capacity: 1.0 METs Stress ECG Conclusion Symptoms: Chest tightness, dyspnea, nausea/vomiting Arrhythmias/Ectopy: None ST-T Changes: No significant ST changes Conclusion: Unremarkable ECG portion of Lexiscan stress test. Myoview images reported separately. Test Summary REST . . . . . . . Resting REST 01:42 . . 61 . 150/ 72 . . Stage 1 . . . . . . . Myoview Injected Stage 1 01:00 . . 79 . . . . Stage 2 01:00 . . 88 . 130/ 73 . . Stage 3 . . . . . . . Nausea Stage 3 01:00 . . 81 . . . . Stage 4 01:00 . . 87 . . . Stop exercise at 04:00 RECOVERY 01:00 . . 76 . . . . RECOVERY 02:00 . . 76 . 126/ 78 . . RECOVERY 03:00 . . 72 . 143/ 70 . . RECOVERY 04:00 . . 71 . 141/ 72 . . RECOVERY 05:00 . . 74 . 141/ 72 . . RECOVERY 05:59 . . 69 . 149/ 74 . . Electronically signed by : Anel Hale MD 12/06/2023 12:54:53
[2023-12-05] MEDS: SODIUM CHLORIDE 0.9% 10ML SYR (RAD ONLY) 10 ML IV ×2 (09:18)
[2023-12-05] MEDS: ISOTOPE MYOVIEW (PER STUDY) 1 DOSE IV (09:18)
[2023-12-05] MEDS: REGADENOSON 0.4MG/5ML SYRINGE 0.4 MG IV (09:18)
== END 2023-12-05 23:59 | disposition home or self-care (01) ==
LOC: RAD 07:08
PROVIDERS: Visit Provider Nurse Practitioner Family
DX: I25.10 Atherosclerotic heart disease of native coronary artery without angina pectoris (principal)
CPT/HCPCS: 78452; 93017; 93018; A9502; J2785

== ENCOUNTER 2023-12-15 09:03 | Day surgery (SDC) | payer MEDICARE, SELFPAY ==
[2023-12-15] VITALS (13 sets, daily range): BP systolic 135–172; BP diastolic 62–89; PULSE 63–71; RESP 16–18; TEMP 36.3; O2SAT 96–100; BMI 33.3
--- NOTE | 2023-12-15 07:26 | IR_ITS ---
APPROVED REPORT Patient Location: Outpatient Stripping Machine Operator: Philip Link RT (R) PROCEDURES Selective coronary angiogram Drug-eluting stent deployment to the proximal LAD Drug-eluting stent deployment to the first diagonal artery Drug-eluting stent deployment to the circumflex artery INDICATION Coronary artery disease, New onset angina pectoris, Abnormal Myoview Informed consent was obtained prior to the procedure. COMPLICATIONS NONE Estimated Blood Loss: LESS THAN 10 ML TECHNIQUE One percent lidocaine used to anesthetize the right anterior aspect of the wrist. The right radial artery was accessed via the Seldinger technique. A 6 Mongolian sheath was placed in the right radial artery. 2.5 mg of Verapamil, 800 mcg of nitroglycerin, 1mg Lidocaine and 5000 U Heparin were given through the arterial sheath. The 6 Mongolian JL 3 guide catheter was used to perform selective coronary angiogram. At the end of the diagnostic angiogram therapeutic heparin was administered giving a therapeutic ACT and the guide catheter was placed in left main artery followed by Choice PT extra-support wire placed down the LAD and first diagonal artery. A 2.5 x 12 mm noncompliant balloon was deployed at 16 bentley we reducing the ostial LAD stenosis. Following this a 2.5 x 12 mm Miguelito frontier stent was placed in the ostial proximal segment and deployed at 20 bentley. Excellent angiograph results were obtained. Following this a 3 mm x 15 mm Miguelito frontier stent was placed in the proximal LAD crossing the first diagonal artery and then deployed at 20 bentley making sure the struts were out of the LAD and opening the LAD completely. RUPESH-3 flow was present before and after the procedure. Following this an additional wire was placed into the circumflex arteries first obtuse marginal artery where a 2.5 x 15 mm Towanda frontier stent was deployed at 20 bentley reducing the stenosis to 0%. RUPESH-3 flow was present before and after the procedure. At the end the procedure the apparatus was removed the sheath was removed and hemostasis was achieved using TR banding patient was transferred to the postop putting in stable condition ANGIOGRAPHIC RESULTS The left main artery Has a distal eccentric 10 to 20% stenosis The left anterior descending artery Has a stent in the proximal segment which is widely patent free of in-stent restenosis. Distal to the stent there is a 20 to 30% stenosis. A large bifurcating first diagonal artery has an ostial proximal 80 to 90% stenosis The circumflex artery Is nondominant and has an ostial 30% stenosis. The first obtuse marginal artery has proximal tandem 80% stenoses The right coronary artery Is a dominant vessel and has an ostial 10 to 20% stenosis followed by long tubular 30% mid vessel stenoses. The posterior sending artery is 20 and 30% stenosis The GUERRERO ventriculogram reveals Not performed The left ventricular end-diastolic pressure Not measured IMPRESSION Coronary disease as described above Successful stenting of the proximal LAD and ostial proximal first diagonal artery. Severe disease in the first diagonal artery reducing the lesion to 0% with 1 drug-eluting stent followed by bifurcating stents into the proximal LAD Successful stenting of the circumflex arteries first obtuse marginal artery severe disease reduced to 0% with 1 drug-eluting stent PLAN 1. Dual antiplatelet therapy 2. Cardiac rehabilitation 3. Avoidance of tobacco products 4. LDL less than 55 to achieve that high intensity statin 5. Risk factor modification Electronically signed by : Tacos Bentley MD 12/15/2023 11:11:18
[2023-12-15 09:27] LABS: Basophils # 0.1 K/mm3 (0-0.2); Basophils % 1.2 % (0.1-2.0); Eosinophils # 0.3 K/mm3 (0.0-0.4); Eosinophils % 3.9 % (0.1-12.0); Hematocrit 45.6 % (37.0-47.0); Lymphocytes # 2.1 K/mm3 (0.7-4.5); Lymphocytes % 26.8 % (10-50); Mean Corpuscular HGB Conc 32.9 g/dL (31.8-35.4); Mean Corpuscular Hemoglobin 30.4 pg (27.0-31.2); Mean Corpuscular Volume 92.4 fl (81-99); Mean Platelet Volume 7.2 fl (7.4-10.4); Monocytes # 0.5 K/mm3 (0.1-1.0); Monocytes % 6.5 % (1.7-9.3); Neutrophils # 4.8 K/mm3 (1.8-7.8); Neutrophils % 61.7 % (37.0-80.0); Platelet Count 314 K/mm3 (142-424); Red Blood Count 4.94 M/mm3 (4.20-5.40); Red Cell Distribution Width 13.3 % (11.5-17.5); White Blood Count 7.7 K/mm3 (4.8-10.8)
[2023-12-15 09:35] LABS: Chloride 104 mmol/L (98-107)
[2023-12-15 09:36] LABS: Sodium 141 mmol/L (136-145)
[2023-12-15 09:39] LABS: Blood Urea Nitrogen 14 mg/dl (7-17); Calcium 9.5 mg/dl (8.4-10.2); Carbon Dioxide 27 mmol/L (22.0-30.0); Creatinine Clearance Estimated 72 mL/min (50-200); Estimated Glomerular Filt Rate 63 ml/min (>60); GFR (African American) 76 ML/MIN (>60); Glucose 114 mg/dl (74-100)
[2023-12-15] MEDS: diphenhydrAMINE 50MG/ML VIAL 50 MG IV (09:55)
[2023-12-15] MEDS: 0.9 % SODIUM CHLORIDE 500 ML 25 ML IV (09:56)
[2023-12-15] MEDS: LIDOCAINE 1% 10ML MDV 20 ML IJ (09:56)
[2023-12-15] MEDS: VERAPAMIL 2.5MG/ML 2ML VIAL 2.5 MG IV (09:56)
[2023-12-15] MEDS: HEPARIN 1,000 UNITS/500ML NS (CATH LAB) 3000 UNIT IV (09:56)
[2023-12-15] MEDS: HEPARIN 1,000 UNITS/ML 10ML VIAL (CATH LAB) 10000 UNIT IV (09:57)
[2023-12-15] MEDS: MIDAZOLAM HCL 1MG/ML 5ML VIAL 1 MG IV (10:13)
[2023-12-15] MEDS: FENTANYL 100MCG/2ML VIAL 50 MCG IV (10:13)
[2023-12-15] MEDS: PRASUGREL 10MG TAB 60 MG PO (10:38)
[2023-12-15] MEDS: FAMOTIDINE 20MG/2ML VIAL 20 MG IV (13:18)
[2023-12-15] MEDS: METHYLPREDNISOLONE SOD SUCC 125MG VIAL 125 MG IV (13:20)
[2023-12-15] MEDS: NITROGLYCERIN 800MCG/8ML SYR (CATH LAB) 800 MCG IA (13:31)
[2023-12-15] MEDS: IOPAMIDOL-370 (76%);100ML BOTTLE 120 ML IV (14:32)
[2023-12-15 15:11] LABS: CATHL Activated Clotting Time 343 SEC (74-125)
== END 2023-12-15 14:29 | disposition home or self-care (01) ==
PROVIDERS: PCP Nurse Practitioner Family; Visit Provider Internal Medicine
DX: I25.118 Atherosclerotic heart disease of native coronary artery with other forms of angina pectoris (principal); R53.83 Other fatigue; R94.30 Abnormal result of cardiovascular function study, unspecified; I65.22 Occlusion and stenosis of left carotid artery; E78.2 Mixed hyperlipidemia; I10 Essential (primary) hypertension; Z79.899 Other long term (current) drug therapy
CPT/HCPCS: 80048; 85025; 85347; 92928; 92929; 93454; 99152; 99153; C1725; C1769; C1874; C9600; C9601; J1200; J1644; J2250; J2919; J3010; Q9967; S0028

== ENCOUNTER 2023-12-18 11:35 | Outpatient (CLI) | payer MEDICARE, SELFPAY ==
[2023-12-18 12:06] LABS: Basophils # 0.1 K/mm3 (0-0.2); Basophils % 1.1 % (0.1-2.0); Eosinophils # 0.4 K/mm3 (0.0-0.4); Eosinophils % 3.5 % (0.1-12.0); Hematocrit 43.8 % (37.0-47.0); Hemoglobin 14.8 g/dL (12.2-16.2); Lymphocytes # 2.8 K/mm3 (0.7-4.5); Lymphocytes % 27.7 % (10-50); Mean Corpuscular HGB Conc 33.8 g/dL (31.8-35.4); Mean Corpuscular Hemoglobin 30.3 pg (27.0-31.2); Mean Corpuscular Volume 89.6 fl (81-99); Mean Platelet Volume 7.3 fl (7.4-10.4); Monocytes # 0.7 K/mm3 (0.1-1.0); Neutrophils # 6.1 K/mm3 (1.8-7.8); Neutrophils % 60.7 % (37.0-80.0); Platelet Count 351 K/mm3 (142-424); Red Blood Count 4.89 M/mm3 (4.20-5.40); Red Cell Distribution Width 13.7 % (11.5-17.5); White Blood Count 10.1 K/mm3 (4.8-10.8)
[2023-12-18 12:26] LABS: Chloride 102 mmol/L (98-107); Potassium 4.3 mmoL/L (3.5-5.1); Sodium 136 mmol/L (136-145)
[2023-12-18 12:29] LABS: Anion Gap 12.3 mEq/L (5-15); Blood Urea Nitrogen 14 mg/dl (7-17); Calcium 9.2 mg/dl (8.4-10.2); Carbon Dioxide 26 mmol/L (22.0-30.0); Estimated Glomerular Filt Rate 55 ml/min (>60); GFR (African American) 67 ML/MIN (>60); Glucose 103 mg/dl (74-100)
== END 2023-12-18 23:59 | disposition home or self-care (01) ==
LOC: LAB 11:37
PROVIDERS: Visit Provider Internal Medicine
DX: I25.10 Atherosclerotic heart disease of native coronary artery without angina pectoris (principal)
CPT/HCPCS: 36415; 80048; 85025

== ENCOUNTER 2024-08-01 06:57 | Outpatient (CLI) | payer MEDICARE, SELFPAY ==
--- OUTSIDE RECORDS SUMMARY | 2023-11-15 06:30 | XMS_ITS | Continuity of Care Document ---
Author Organization [facility] Address [address] [place] [address] Phone Care Team Providers Care Racking Technician Name Role Phone Doe Smith PA-C Unavailable Unavailable Procedures Procedure Date Office/outpatient visit,est, mod 2023 Inject tndn sheath/lgmnt/gangl cyst X-ray exam of wrist, 2 views Betamethasone acet 3mg & sod phosp 3mg O ct Office/outpatient visit,est, mod 2023 X-ray exam of wrist, complete 4 Office/outpatient visit,new, mod 2023 X-ray exam of elbow, complete 4 X-ray exam of wrist, complete 4 X-ray exam of knee, 3 views Advance Directives Directive Yes / No Effective Date File Name No Information Encounters Encounter Description Practice Location Reason(s) For Visit Diagnoses Date Provider Providers Copied on Encounter Office/outpa tient visit,est, mod [facility], [address] [place], [address], [place] tel:[phone] Radial styloid tenosynovitis [de Quervain]Nondisp laced fracture of right radial styloid process, subsequent encounter for closed fracture with routine healing [address] [place], [address], [place]. tel:[phone] Referring Provider: Nedra Duckworth, [address], [place], [address]. tel:[phone] Office/outpa tient visit,[facility], [address], [place], [address], [place] tel:[phone] [facility] Nondisplaced fracture of right radial styloid process, subsequent encounter for closed fracture with routine healing [address] [place], [id number] , [place]. tel:[phone] Referring Provider: [place], [address] . tel:[phone] Office/outpa tient visit,[facility], [address] [place], [address], [place] tel:[phone] [facility] Nondisplaced fracture of right radial styloid process, initial encounter for closed fractureContusio n of right knee, initial encounterPain in right elbow 4 F[address] Crist[address]. [address] [place], [id number] , [place]. tel:[phone] Referring Provider: [place]y [place] [address], [address] . tel:[phone] Family History Family Member Type Diagnosis Age At Onset No Information Payers Payer name Insurance type Covered constitution party ID Tyra santos(s) C [id number] Social History Type Description Quantity Date Captured Comments Sex Female Smoking Status No Information Chief Complaint And Reason For Visit No Information Reason For Referral Reason For Referral No Information History Of Present Illness Encounter Date Complaint History Of Prese nt Illness No Information Functional Status Date Functional Assessmen t No Information Instructions Date Instruction Additional Infor mation No Information Assessments Type Assessment Date No Information Patient Care Teams Name Effective Dates (start - stop) Status Members No Information
--- OUTSIDE RECORDS SUMMARY | 2024-06-13 11:57 | XMS_ITS | Encounter Summary ---
Author Organization [facility] Address [address] [place] [address] Care Team Providers Care Flame Hardener Name Role Phone Roberta Barlow MD Unavailable [phone] Lulú Lunsford RN Unavailable Unavailab Spencer Gallego MD Unavailable [phone] Bing Ho RN Unavailable Philip Blair MD Unavailable [phone] Jerrod Chatterjee MD Unavailable [phone] Ed Stovall MD Unavailable [phone] Nedra Duckworth NP Primary Care Provider [phone] Encounter Details Date Type Department Care Team (Latest Contact Info) Description 06/13/2024 11:57 AM EDT - 06/13/2024 12:32 PM EDT Hospital Encounter [facility] Medical Office Building, [facility] [address] [place] [address] Screening mammogram for breast cancer Discharge Disposition: Home or Self Care Social History Tobacco Use Types Packs/Day Years Used Date Smoking Tobacco: Former Cigarettes 0 02/14/1980 - 02/14/1984 Passive Smoke Exposure: Past Smokeless Tobacco: Never Comments:1989 Alcohol Use Standard Drinks/Week Comments Yes 0 (1 standard drink = 0.6 oz pur e alcohol) 1x month-occ PHQ-2 Answer Date Recorded PHQ-9 Auto Total 0 07/21/2023 Comments No Sex and Gender Information Value Date Recorded Sex Assigned at Female 02/04/2023 8:23 PM EST Legal Sex Female 4:00 PM EST Gender Identity Female 02/04/2023 8:23 PM EST Sexual Orientation Straight 02/04/2023 8: 23 PM EST documented as of this encounter Functional Status * Are you blind or do you have difficulty seeing, even when wearing glasses? Answer Date of Assessment Author No 02/16/2015 9:35 PM Lyle Dominguez RN * Do you have serious difficulty walking or climbing stairs? Answer Date of Assessment Author No 02/16/2015 9:35 PM Lyle Dominguez RN * Do you have difficulty dressing or bathing? Answer Date of Assessment Author No 02/16/2015 9:35 PM Lyle Dominguez RN * Because of a physical, mental, or emotional condition, do you have difficulty doing errands alone such as a visiting a doctor's office or shopping? Answer Date of Assessment Author No 02/16/2015 9:35 PM Lyle Dominguez RN documented as of this encounter Mental Status * Because of a physical, mental, or emotional condition, do you have serious difficulty concentrating, remembering, or making decisions? Answer Entry Date Author No 02/16/2015 9:35 PM Lyle Dominguez RN documented in this encounter Medications at Time of Discharge aspirin 81 mg Tablet, Delayed Release (E.C.) Take 81 mg by mouth in the morning. bisoprolol (ZEBETA) 5 mg tablet Take 5 mg by mouth in the morning. Cholecalciferol, Vitamin D3, 25 mcg (1,000 unit) Capsule Take by mouth in the morning. diltiazem (CARDIZEM CD) 180 mg capsule Take 180 mg by mouth in the morning. 11/10/2020 [id number]-dha-[id number] qu-zcduvxf-[id number] (krill oil) 1,533-643-61-80 mg Capsule Take 350 mg of caffeine citrate by mouth in the morning and 350 mg of caffeine citrate in the evening. loratadine (CLARITIN) 10 mg tablet Take 10 mg by mouth in the morning. Prasugrel (Effient) 10 mg Tablet Take 10 mg by mouth in the morning. 12/15/2023 rosuvastatin (CRESTOR) 20 mg Tablet Take 20 mg by mouth every evening. UBIDECARENONE (COENZYME Q10) 100 mg PO Tab Take 1 Tablet by mouth in the morning and 1 Tablet in the evening. . albuterol (VENTOLIN/PROAIR /PROVENTIL HFA) 90 mcg/actuation HFA Aerosol InhalerIndicatio ns:Bronchitis Take 2 Puffs by inhalation 4 times daily. 1 Each 02/26/2024 5 budesonide-formo teroL (Symbicort) 80-4.5 mcg/actuation HFA Aerosol InhalerIndicatio ns:Bronchitis Take 2 Puffs by inhalation 2 times daily. 6.9 g 1 03/07/2024 5 Cefdinir (OMNICEF) 300 mg capsuleIndicatio ns:Bronchitis Take 1 Capsule (300 mg) by mouth every 12 hours. 14 Capsule 03/07/2024 5 methylPREDNISolo ne (MEDROL) 4 mg tab (dosepak) Take 1 Package by mouth See instructions. follow package directions 21 Tablet 05/28/2024 5 promethazine-dex tromethorphan (PROMETHAZINE-DM ) 6.25-15 mg/5 mL syrupIndications :cough Take 5 mL by mouth every 8 hours as needed for Cough. Indications: cough 118 mL 03/07/2024 5 spacer (BreatheRite MDI Spacer) SpacerIndication s:Bronchitis Use with inhaler. 1 Each 02/26/2024 5 documented as of this encounter Plan of Treatment Upcoming Encounters Date Type Department Care Team (Late st Contact Info) Description 08/06/2024 1:30 PM EDT Appointment [facility] Cardi[facility] Testing [facility] - [facility] - C-Level [address] [place] [address] documented as of this encounter Procedures Procedure Name Priority Date/Time Associated Diagnosis Comments MAMM-SCREENING W/BIBI Routine 06/13/2024 12:26 PM EDT Screening mammogram for breast cancer documented in this encounter Results * MAMM-SCREENING W/BIBI (06/13/2024 12:26 PM EDT) Anatomical Region Laterality Modality Bilateral Mammography 06/13/2024 2:23 PM EDT Impressions 06/13/2024 2:24 PM EDT IMPRESSION: No direct or indirect evidence of malignancy is seen on the current study. BI-RADS CATEGORY: 1 - NEGATIVE RECOMMENDED FOLLOW-UP: Bilateral Follow up mammogram in 1 year Reminder: The patient was entered into a reminder system for annual screening mammography notification. If additional imaging and/or biopsy is indicated, [facility] staff will inform the patient of the findings and recommendations, obtain necessary orders from the referring provider, and schedule the patient for appointment as appropriate. Consider discussion with your primary care provider regarding breast MRI with IV contrast for supplemental breast cancer screening for women with dense breasts. This study was performed and interpreted using full-field digital mammographic and computer-aided detection. The [employer] recommends annual screening mammography for women age 40 and above. Please note that mammography is not 100% accurate in diagnosing breast cancer. A routine breast examination is recommended to correlate with mammographic findings. [facility] [place], [address] [place] [address] [address], [place] [address] GARRICK PALMER 1955 Signed By: Alec Chavez MD 06/13/2024 2:24 PM EDT MAMM-SCREENING W/BIBI REASON FOR EXAMINATION: Screening COMPARISON: March 2023 and January 2021 LIMITATIONS: None. TYRER-CUZICK SCORE: 4.9 % (estimated lifetime risk of breast cancer). This score is calculated based on patient reported data and should be interpreted in this context. Patients should discuss the significance of this score with their primary care provider as it could mean that supplemental breast cancer screening may be indicated. DENSITY: There are scattered areas of fibroglandular density. FINDINGS: Computer aided detection assisted in the interpretation of the mammogram. No new masses, architectural distortion or groupings of suspicious calcifications are seen. Procedure Note Alec Chavez MD - 06/13/2024 MAMM-SCREENING W/BIBI REASON FOR EXAMINATION: Screening COMPARISON: March 2023 and January 2021 LIMITATIONS: None. TYRER-CUZICK SCORE: 4.9 % (estimated lifetime risk of breast cancer). Thisscore is calculated based on patient reported data and should beinterpreted in this context. Patients should discuss the significance ofthis score with their primary care provider as it could mean thatsupplemental breast cancer screening may be indicated. DENSITY: There are scattered areas of fibroglandular density. FINDINGS: Computer aided detection assisted in the interpretation of the mammogram.No new masses, architectural distortion or groupings of suspiciouscalcifications are seen. IMPRESSION: No direct or indirect evidence of malignancy is seen on the currentstudy. BI-RADS CATEGORY: 1 - NEGATIVE RECOMMENDED FOLLOW-UP: Bilateral Follow up mammogram in 1 year Reminder: The patient was entered into a reminder system for annualscreening mammography notification. If additional imaging and/or biopsy is indicated, [facility] staff will inform the patient of the findings and recommendations,obtain necessary orders from the referring provider, and schedule thepatient for appointment as appropriate. Consider discussion with your primary care provider regarding breast MRIwith IV contrast for supplemental breast cancer screening for women withdense breasts. This study was performed and interpreted using full-field digitalmammographic and computer-aided detection. The [employer] recommends annual screening mammographyfor women age 40 and above. Please note that mammography is not 100% accurate in diagnosing breastcancer. A routine breast examination is recommended to correlate withmammographic findings. [facility], [address],[place] [address] GARRICK PALMER 1955 Signed By: Alec Chavez MD us Nedra Duckworth NP IMG MAMMO ORDERABLES Final Resu lt documented in this encounter Visit Diagnoses Diagnosis Screening mammogram for breast cancer documented in this encounter Additional Health Concerns Assessment Noted Time PHQ-9 Depression Total Score: 1 01/20/20 23 10:15 AM EST documented as of this encounter Care Teams Flame Hardener Relationship Specialty Start Date End Date Nedra Duckworth NP [address] [place] [id number] PCP - General Nurse Practitioner, Family 06/21/23 Roberta Barlow MD [address] [facility] [address] [place] [address] Family Medicine 05/21/20 Lulú Lunsford, RN Registered Nurse 09/28/20 Spencer Henry MD [address] [place] [address] Interventional Cardiology 10/08/20 Bing Ho, BELLA [address] [place] [address] Registered Nurse 12/07/20 Philip Blair MD [address] [facility] [address] [place] [address] Internal Medicine 01/18/22 Jerrod Chatterjee MD [address] [address] Otolaryngology 02/18/22 Ed Stovall MD [address] [facility] [place] [address] Gastroenterology 02/20/22 documented as of this encounter
--- OUTSIDE RECORDS SUMMARY | 2024-06-13 12:33 | XMS_ITS | Encounter Summary ---
Author Organization [facility] Address [address] [place] [id number] Care Team Providers Care Industrial Specialist Name Role Phone Roberta Barlow MD Unavailable [phone] Lulú Lunsford RN Unavailable Unavailab Spencer Gallego MD Unavailable [phone] Bing Ho RN Unavailable Philip Blair MD Unavailable [phone] Jerrod Chatterjee MD Unavailable [phone] Ed Stovall MD Unavailable [phone] Nedra Duckworth NP Primary Care Provider [phone] Reason for Referral * Radiology Services (Routine) - Pending Review Specialty Diagnoses / Procedures Referred By Contac t Referred To Contact Diagnoses Acute right-sided low back pain with right-sided sciatica Procedures [id number] 2 OR 3-VIEWS Nkechi Leon NP [address] [facility] [place] [address] Phone: tel: fax: [address] [address] Phone: tel: Referral ID Status Reason Start Date Expiration Date V isits Requested Visits Authorized [id number] Pending Review 05/28/2024 05/28/2025 1 1 Reason for Visit * Radiology Services (Routine) - Pending Review Specialty Diagnoses / Procedures Referred By Contac t Referred To Contact Diagnoses Acute right-sided low back pain with right-sided sciatica Procedures [id number] 2 OR 3-VIEWS Nkechi Leon NP [address] [facility] [place] [address] Phone: tel: fax: [facility] [address] [place] [address] Phone: tel: Referral ID Status Reason Start Date Expiration Date V isits Requested Visits Authorized [id number] Pending Review 05/28/2024 05/28/2025 1 1 Encounter Details Date Type Department Care Team (Latest Contact Info) Description 06/13/2024 12:33 PM EDT - 06/13/2024 11:59 PM EDT Hospital Encounter X-Ray [address] [facility] [address] [place], [place] [id number] Acute right-sided low back pain with right-sided sciatica Discharge Disposition: Home or Self Care Social [...] mg by mouth in the morning. 11/10/2020 tlvwe-yq-6-dha-e hp-vkxhjli-rnn (krill oil) 1,731-826-61-80 mg Capsule Take 350 mg of caffeine [...] Description 08/06/2024 1:30 PM EDT Appointment [facility] Cardiovascular Testing Center - [facility] - C-Level [address] [place] [address] documented as of this encounter Procedures Procedure Name Priority Date/Time Associated Diagnosis Comments [id number] 2 OR 3-VIEWS Routine 06/13/2024 12:43 PM EDT Acute right-sided low back pain with right-sided sciatica documented in this encounter Results * [id number] 2 OR 3-VIEWS (06/13/2024 12:43 PM EDT) Anatomical Region Laterality Modality T-Spine, L-Spine, Pelvis Radiogr aphic Imaging 06/13/2024 3:36 PM EDT Impressions 06/13/2024 3:37 PM EDT IMPRESSION: Mild to moderate degenerative disc disease without vertebral height loss or malalignment. The findings do not appear significantly changed from 2022. Electronically signed by Larry Arriaga MD Narrative 06/13/2024 3:37 PM EDT EXAM: [id number]-R-[id number] 2 OR 3-VIEWS INDICATION: Lower back pain COMPARISON: January 10, 2023 FINDINGS: 3 views. Vertebral body heights and alignment are normal. Mild to moderate multilevel degenerative disc disease is noted. Moderate vascular calcifications. Procedure Note Larry Arriaga MD - 06/13/2024 EXAM: [id number] 2 OR 3-VIEWS INDICATION: Lower back pain COMPARISON: January 10, 2023 FINDINGS: 3 views. Vertebral body heights and alignment are normal. Mild to moderatemultilevel degenerative disc disease is noted. Moderate vascularcalcifications. IMPRESSION: Mild to moderate degenerative disc disease without vertebral height lossor malalignment. The findings do not appear significantly changed [id number]. Electronically signed by Larry Arriaga MD Nkechi Leon PROGRAM EVALUATOR IMG DIAGNOSTIC IMAGING ORDERABLES Final Result documented in this encounter Visit Diagnoses Diagnosis Acute right-sided low back pain with right-sided sciatica documented in this encounter Additional Health Concerns Assessment Noted Time PHQ-9 Depression Total Score: 1 01/20/20 23 10:15 AM EST documented as of this encounter Care Teams Industrial Specialist Relationship Specialty Start Date End Date Nedra Duckworth NP [address] [facility] [address] [place] [address] PCP - General Nurse Practitioner, Family 06/21/23 Roberta Barlow MD [address] [facility] [address] [place] [address] Family Medicine 05/21/20 Lulú Lunsford, RN Registered Nurse 09/28/20 Spencer Henry MD [address] [facility] [place] [address] Interventional Cardiology 10/08/20 Bing Ho, RN [address] [place] [address] Registered Nurse 12/07/20 Philip Blair MD [address] [facility] [address] [place] [address] Internal Medicine 01/18/22 Jerrod Chatterjee MD [address] [facility] [address] [place] [address] Otolaryngology 02/18/22 Ed Stovall MD [address] [facility] [place] [address] Gastroenterology 02/20/22 documented as of this encounter
--- OUTSIDE RECORDS SUMMARY | 2024-07-23 10:25 | XMS_ITS | Encounter Summary ---
Author Organization [facility] (Formerly [facility]) Address [address] [place] [id number] Care Team Providers Care Plumbing Service Technician Name Role Phone Roberta Barlow MD Unavailable [phone] Lulú Lunsford RN Unavailable Unavailab Spencer Gallego MD Unavailable [phone] Bing Ho RN Unavailable Philip Blair MD Unavailable [phone] Jerrod Chatterjee MD Unavailable [phone] Ed Stovall MD Unavailable [phone] Nedra Duckworth NP Primary Care Provider [phone] Encounter Details Date Type Department Care Team (Latest Contact Info) Description 07/23/2024 10:25 AM EDT - 07/23/2024 11:59 PM EDT Hospital Encounter Laboratory [address] [place] [address] [address] [place] [address] Fatigue, unspecified type; Coronary artery disease involving seminole coronary artery of seminole heart without angina pectoris; Vitamin D deficiency Discharge Disposition: Home or Self Care Social [...] mg by mouth in the morning. 11/10/2020 [id number] (krill oil) [id number] mg Capsule Take 350 mg of caffeine [...] Description 08/06/2024 1:30 PM EDT Appointment [facility] ([facility] Cardiovascular Testing Center - [facility] - C-Level [address] [place] [address] documented as of this encounter Procedures Procedure Name Priority Date/Time Associated Diagnosis Comments DIFFERENTIAL Routine 07/23/2024 10:41 AM EDT CBC WITH DIFFERENTIAL Routine 07/23/2024 10:41 AM EDT Fatigue, unspecified type URINALYSIS W/ REFLEX TO MICROSCOPIC Routine 07/23/2024 10:41 AM EDT Fatigue, unspecified type TSH 3RD GEN, REFLEX FT4 Routine 07/23/2024 10:41 AM EDT Fatigue, unspecified type LIPID PROFILE Routine 07/23/2024 10:41 AM EDT Coronary artery disease involving seminole coronary artery of seminole heart without angina pectoris HGB, A1C (GLYCOHEMOGLOBIN) STAT Future 07/23/2024 10:41 AM EDT COMPREHENSIVE METABOLIC PANEL Routine 07/23/2024 10:41 AM EDT Fatigue, unspecified type VITAMIN D 25 HYDROXY TOTAL Routine 07/23/2024 10:41 AM EDT Vitamin D deficiency documented in this encounter Results * (ABNORMAL) HGB, A1C (GLYCOHEMOGLOBIN) (07/23/2024 10:41 AM EDT) Hgb A1C 6.0(H) 4.0 - 5.6 % [facility] Comment: Reference Ranges for Hgb A1c: Increased risk for diabetes: 5.7-6.4% Probable diabetes: >=6.5% Desired control for previously diagnosed diabetics: <7.0% Many conditions can affect the Hgb A1c value including hemolysis, recent transfusion, hemoglobin variants, thalassemias, severe chronic hepatic and renal disease and iron deficiency among others. Please note that results from this assay are invalid for patients with abnormal amounts of Hemoglobin (HbF). Results must be interpreted in the proper clinical context. This method is certified by the National Glycohemoglobin Standardization program (NGSP) and traceable to DCCT. Estimated Average Glucose 126(H) 68 - 114 mg/dL [facility] Whole Blood 07/23/2024 10:4 1 AM EDT 07/26/2024 9:21 AM EDT Nedra Duckworth NP CHEMISTRY ORDERABLES Final Resu lt Performing Organization Address [facility] Co de Phone Number [facility] [address] * DIFFERENTIAL (07/23/2024 10:41 AM EDT) Neutrophils Absolute 4.84 1.50 - 7.80 10*3/uL [facility] Lymphocytes Absolute 2.70 0.80 - 3.90 10*3/uL [facility] Monocytes Absolute 0.66 0.20 - 0.90 10*3/uL [facility] Eosinophils Absolute 0.41 0.00 - 0.50 10*3/uL [facility] Basophils Absolute 0.06 0.00 - 0.20 10*3/uL [facility] Immature Granulocytes Absolute 0.04 0.00 - 0.10 10*3/uL [facility] Neutrophils Relative 55.5 % [facility] Lymphocytes Relative 31.0 % [facility] Monocytes Relative 7.6 % [facility] Eosinophils Relative 4.7 % [facility] Basophils Relative 0.7 % [facility] Immature Granulocytes 0.5 % [facility] nRBC 0 0 - 0 /100 WBC [facility] Whole Blood 07/23/2024 10:4 1 AM EDT 07/23/2024 1:30 PM EDT Nedra Duckworth NP HEMATOLOGY ORDERABLES Final Res ult Performing Organization Address [facility] Co de Phone Number [facility] [address] * VITAMIN D 25 HYDROXY TOTAL (07/23/2024 10:41 AM EDT) Vit D, 25-Hydroxy 45 30 - 80 ng/mL [facility] Comment: Therapy is based on measurement of Total 25-OHD, with levels <20 ng/mL indicative of Vitamin D deficiency, while levels between 20 ng/mL and 30 ng/mL suggest insufficiency. Sufficient levels are >or = 30 ng/mL. Serum 07/23/2024 10:4 1 AM EDT 07/23/2024 1:23 PM EDT Nedra Duckworth EXTRUSION PROCESS OPERATOR CHEMISTRY ORDERABLES Final Resu lt [facility] [address] * TSH 3RD GEN, REFLEX FT4 (07/23/2024 10:41 AM EDT) TSH REFLEX 3.25 0.35 - 4.94 uIU/mL [facility] Serum (Serum) 07/23/2024 10: 41 AM EDT 07/23/2024 1:23 PM EDT Nedra Duckworth EXTRUSION PROCESS OPERATOR CHEMISTRY ORDERABLES Final Resu lt Performing Organization Address [facility] Co de Phone Number [facility] [address] * (ABNORMAL) LIPID PROFILE (07/23/2024 10:41 AM EDT) Cholesterol 139 125 - 199 mg/dL [facility] Comment: TOTAL CHOLESTEROL INTERPRETATION: Less than 200 mg/dL Desireable 200-239 mg/dL Borderline Greater or Equal to 240 mg/dL High LDL Calculated 64 0 - 100 mg/dL [facility] Comment: LDL CHOLESTEROL INTERPRETATION: Less than 100 mg/dL Optimal 100-129 mg/dL Near optimal/above optimal 130-159 mg/dL Borderline High 160-189 mg/dL High Greater or Equal to 190 mg/dL Very High HDL 43 40 - 180 mg/dL [facility] Comment: HDL CHOLESTEROL INTERPRETATION: Less than 40 mg/dL Low Greater than 60 mg/dL Desirable Triglycerides 158(H) 0 - 149 mg/dL [facility] Comment: TOTAL TRIGLYCERIDE INTERPRETATION: Less than 150 mg/dL Normal 150-199 mg/dL Borderline HIgh 200-499 mg/dL High Greater or Equal to 500 mg/dL Very High NONHDL Calculated 96 0 - 129 mg/dL [facility] Comment: NON-HDL INTERPRETATION: Less than 130 mg/dL Desirable 130-159 mg/dL Above Desirable 160-189 mg/dL Borderline High 190-219 mg/dL High Greater than or equal to 220 mg/dL Very High Serum (Serum) 07/23/2024 10: 41 AM EDT 07/23/2024 1:23 PM EDT Nedra Duckworth EXTRUSION PROCESS OPERATOR CHEMISTRY ORDERABLES Final Resu lt Performing Organization Address [facility]/ZIP Co de Phone Number [facility] [address] * (ABNORMAL) URINALYSIS W/ REFLEX TO MICROSCOPIC (07/23/2024 10:41 AM EDT) Color, UA Yellow Yellow,Straw ,Colorless [facility] Clarity, UA Clear Clear [facility] Glucose, UA Negative Negative mg/dL [facility] Bilirubin, UA Negative Negative [facility] Ketones, UA Negative Negative mg/dL [facility] Spec Grav, UA 1.009 1.005 - 1.035 [facility] Blood, UA Negative Negative [facility] pH, Urine 6.0 5.0 - 8.0 [facility] Protein, UA Negative Negative mg/dL [facility] Urobilinogen, UA <2.0 <2.0 mg/dL [facility] Nitrite, UA Negative Negative [facility] Leukocyte esterase UA Small(A) Negative [facility] RBC, UA <1 /HPF 0 - 3 /HPF [facility] WBC 6(H) 0 - 5 /HPF [facility] Squam Epithel, UA 1 0 - 5 /HPF [facility] Urine 07/23/2024 10:4 1 AM EDT 07/23/2024 1:30 PM EDT us Nedra Duckworth EXTRUSION PROCESS OPERATOR URINE ORDERABLES Final Result Performing Organization Address [facility]/ZIP Co de Phone Number [facility] [address] * (ABNORMAL) COMPREHENSIVE METABOLIC PANEL (07/23/2024 10:41 AM EDT) Sodium 141 135 - 146 mmol/L [facility] Potassium 4.8 3.5 - 5.1 mmol/L [facility] Chloride 107 98 - 110 mmol/L [facility] CO2 27 22 - 29 mmol/L [facility] Anion Gap 7 5 - 13 mmol/L [facility] Comment:Anion gap calculatio n does not include potassium (K+) value. BUN 15 7 - 25 mg/dL [facility] Creatinine 0.86 0.50 - 1.20 mg/dL [facility] Glucose 110(H) 71 - 99 mg/dL [facility] Comment:Reference range (71- 99 mg/dL) refers only to fasting samples, and does not apply to non-fasting samples. eGFR CKD-EPI 2020 74 See Note [facility] Comment: eGFR calculated with 2020 CKD-EPI equation using creatinine, patient's age and gender. Other factors, especially muscle mass, may affect accuracy and need to be considered. Patient values should be interpreted as a trend. The reference interval is >60 mL/min/1.73m2. Calcium 9.7 8.5 - 10.5 mg/dL [facility] Total Bilirubin 1.2 0.2 - 1.2 mg/dL [facility] AST 58(H) 0 - 30 U/L [facility] ALT 86(H) 0 - 40 U/L [facility] Alkaline Phosphatase 80 33 - 140 U/L [facility] Total Protein 7.4 6.0 - 8.0 g/dL [facility] Albumin 4.6 3.5 - 5.0 g/dL [facility] Globulin 2.8 2.0 - 3.7 g/dL [facility] Albumin/Globulin Ratio 1.6 1.0 - 2.1 [facility] BUN/Creatinine Ratio 17 [facility] Serum (Serum) 07/23/2024 10: 41 AM EDT 07/23/2024 1:23 PM EDT us Nedra Duckworth EXTRUSION PROCESS OPERATOR CHEMISTRY ORDERABLES Final Resu lt [facility] [address] [id number] * CBC WITH DIFFERENTIAL (07/23/2024 10:41 AM EDT) WBC 8.71 4.00 - 12.00 10*3/uL [facility] RBC 4.65 3.80 - 5.10 10*6/uL [facility] Hemoglobin 13.8 11.7 - 15.5 g/dL [facility] Hematocrit Blood 44.1 35.0 - 46.0 % [facility] MCV 94.8 80.0 - 100.0 fL [facility] MCH 29.7 27.0 - 33.0 pg [facility] MCHC 31.3 30.0 - 36.0 g/dL [facility] RDW 12.6 11.0 - 15.0 % [facility] Platelets 324 140 - 400 10*3/uL [facility] MPV 9.9 9.0 - 13.0 fL [facility] Whole Blood 07/23/2024 10:4 1 AM EDT 07/23/2024 1:30 PM EDT us Nedra Duckworth EXTRUSION PROCESS OPERATOR HEMATOLOGY ORDERABLES Final Res ult [facility] [address] documented in this encounter Visit Diagnoses Diagnosis Fatigue, unspecified type Coronary artery disease involving seminole coronary artery of seminole heart without angina pectoris Vitamin D deficiency documented in this encounter Additional Health Concerns Assessment Noted Time PHQ-9 Depression Total Score: 1 01/20/20 23 10:15 AM EST documented as of this encounter Care Teams Plumbing Service Technician Relationship Specialty Start Date End Date Nedra Duckworth NP [address] [facility] [address] [place] [address] PCP - General Nurse Practitioner, Family 06/21/23 Roberta Barlow MD [address] [facility] [address] [place] [address] Family Medicine 05/21/20 Lulú Lunsford, RN Registered Nurse 09/28/20 Spencer Henry MD [address] [facility] [place] [address] Interventional Cardiology 10/08/20 Bing Ho, BELLA [address] [facility] [place] [address] Registered Nurse 12/07/20 Philip Blair MD [address] [place] [address] Internal Medicine 01/18/22 Jerrod Chatterjee MD [address] [address] Otolaryngology 02/18/22 Ed Stovall MD [address] [facility] [address] [place] [address] Gastroenterology 02/20/22 documented as of this encounter
--- OUTSIDE RECORDS SUMMARY | 2024-07-26 13:30 | XMS_ITS | Encounter Summary ---
Author Organization [facility] Address [address] [place] [address] Care Team Providers Care Geographic Analyst Name Role Phone Roberta Barlow MD Unavailable [phone] Lulú Lunsford RN Unavailable Unavailab Spencer Gallego MD Unavailable [phone] Bing Ho RN Unavailable Philip Blair MD Unavailable [phone] Jerrod Chatterjee MD Unavailable [phone] Ed Stovall MD Unavailable [phone] Nedra Duckworth NP Primary Care Provider [phone] Reason for Referral * Radiology Services (Routine) - Not Needed Specialty Diagnoses / Procedures Referred By Contac t Referred To Contact Diagnoses Stenosis of carotid artery, unspecified laterality Stenosis of both internal carotid arteries Procedures VASCI-CAROTID DUPLEX COMP LALY Nedra Duckworth NP [address] [facility] [address] [place] [address] Phone: tel: fax: [facility] [address] [place] [phone] Phone: tel: Referral ID Status Reason Start Date Expiration Date V isits Requested Visits Authorized [id number] Not Needed 07/26/2024 07/26/2025 1 1 Reason for Visit * Reason Comments AWV (Subsequent) Encounter Details Date Type Department Care Team (Late st Contact Info) Description 07/26/2024 1:30 PM EDT Office Visit [facility] Physicians - Primary Care, [facility] [address] [place] [address] [address] [place] [address] Nedra Duckworth NP [address] [facility] [address] [place] [address] Encounter for subsequent annual wellness visit (AWV) in Medicare patient (Primary Dx); SOB (shortness of breath) on exertion; Essential hypertension; Coronary artery disease involving mescalero apache coronary artery of mescalero apache heart without angina pectoris; Stenosis of both internal carotid arteries; Demyelinating disease ([facility]); Back pain of lumbar region with sciatica; Obesity (BMI 30.0-34.9); Yeast infection; Fatty liver; Pre-diabetes Social History Tobacco Use Types Packs/Day Years Used Date Smoking Tobacco: Former Cigarettes 0 02/14/1980 - 02/14/1984 Passive Smoke Exposure: Past Smokeless Tobacco: Never Tobacco Cessation:Counseling Given: Not Answered Comments:1989 Alcohol Use Standard Drinks/Week Comments Yes 0 (1 standard drink = 0.6 oz pur e alcohol) 1x month-occ PHQ-2 Answer Date Recorded PHQ-9 Auto Total 0 07/26/2024 Comments No Sex and Gender Information Value Date Recorded Sex Assigned at Female 02/04/2023 8:23 PM EST Legal Sex Female 4:00 PM EST Gender Identity Female 02/04/2023 8:23 PM EST Sexual Orientation Straight 02/04/2023 8: 23 PM EST documented as of this encounter Last Filed Vital Signs Vital Sign Reading Time Taken Comments Blood Pressure 116/60 07/26/2024 1:01 PM EDT Pulse 57 07/26/2024 1:01 PM EDT Temperature 36.7 C (98 F) 07/26/2024 1:01 PM EDT Respiratory Rate - - Oxygen Saturation 98% 07/26/2024 1:01 PM EDT Inhaled Oxygen Concentration - - Weight 83.6 kg (184 lb 6.4 oz) 07/26/2024 1:01 P M EDT Height 157.5 cm (5' 2 ) 07/26/2024 1:01 PM EDT Body Mass Index 33.73 07/26/2024 1:01 PM EDT documented in this encounter Functional Status * Are you [...] Lyle Dominguez RN documented in this encounter Patient Instructions * Patient Instructions* Nedra Duckworth NP - 07/26/2024 1:30 PM EDT call to schedule carotid duplex [phone] documented in this encounter Progress Notes * Nedra Duckworth NP - 07/26/2024 1:30 PM EDT Medicare Annual Wellness Visit Medicare Wellness Visit performed today. All ongoing health issues and treatments listed in the history sections were reviewed with the patient. Assessment & Plan 1.AWV Reviewed immunization and health maintenance. Shingles vaccination status unclear. Colonoscopy due in 2025. Dental, eye exams, and dermatology follow-up current. - Investigate shingles vaccination status with pharmacy records. - Ensure colonoscopy is scheduled for 2025. - Maintain regular dental and eye exams. - Continue dermatology follow-up as needed. 2.Shortness of breath Shortness of breath on exertion despite exercise. Podiatric Foot And Ankle Specialist recommended stress test over angiogram. CT calcium score discussed but deemed less relevant due to stents. Significant coronary artery disease indicated by lining layer. - Proceed with stress test as planned with lining layer. - Discuss with lining layer the potential value of a CT calcium score. 3. HTN -recent cardiology follow up -stable on current regiment 4. CAD -see #2 5. Stenosis of both interna; carotid arteries -continue with Crestor 20 mg -carotid duplex ordered 6.Demyelinating disease -stable 7. Lumbar back pain -referral placed for PT -continue with home health care social worker as needed 8. Obesity BMI 33.8 -sample of Tirzepatide 2.5 mg given. - demonstrated proper administrative technique -Call when ready for next dosing. Will send to [facility]. -common SE discussed -No personal or family history medullary thyroid ca or MENS type 2 9. Yeast infection -request Diflucan for yeast infection -Rx sent 10 Fatty liver -liver enzymes elevated -UA shows fatty liver -continue with Zepbound as prescribed 11. Pre-diabetes Blood glucose levels increasing, A1c indicates diabetes risk. Discussed diet, exercise, and weight loss. Semaglutide considered but caused severe diarrhea. Initiated tirzepatide for weight loss and glucose control. - Initiate tirzepatide (Zepbound) for weight loss and blood sugar control. - Emphasize importance of diet, particularly protein intake, and regular exercise. - Monitor blood glucose levels and adjust treatment as necessary. Return for routine follow up or sooner as needed. Call with questions or issues. History of Present Illness Chief Complaint: AWV (Subsequent) History of Present Illness Patient presents for annual physical exam. Reports worsening complaints of SOB walking inclines. S/p PCI in 2023. Has been walking 2 miles and participating in [employer] sneakers. Recent cardiology visit. She will complete stress test within the next few weeks. Complaint of lumbar back pain. Improvingwith home health care social worker. Weight loss continues to be an issues. Tried semaglutide compounded for weight loss. Higher dosing caused severe diarrhea. No successful weight loss with semaglutide. She is concerned about her immunization status, particularly regarding the shingles vaccine. She recalls receiving a shingles shot, but records indicate her last dose was in 2007. She has received COVID and flu vaccines. She is unsure if she needs another shingles vaccine, as she has never had chickenpox, but her mother reported she had a mild case as a child. Exercise: exercise 3x per walking 2 miles. Diet: Dental exam: up to date Eye exam: up to date Immunizations:Tdap 2009 Colonoscopy: 2022 repeat Feb 2025 FAST FOOD MANAGER: up to date Mammogram: up to date Skin check: up to date B Required Elements Health Risk Assessment Have you been hospitalized since we last saw you?: No (07/26/2024 1:06 PM) Have you seen a health care provider outside our clinic since we last saw you?: No (07/26/2024 1:06 PM) In general, would you say your health is?: Good (07/26/2024 1:06 PM) In the past 7 days, how much pain have you felt?: None (07/26/2024 1:06 PM) Do you usually exercise at least 30 minutes or more, 4 days a week?: Yes (07/26/2024 1:06 PM) Do you usually eat a diet that has at least 4 servings of fruit & vegetables, includes whole grains & fiber and avoids other than the occasional servings of high fat foods?: (!) No (51:06 PM) Do you have any problems with your hearing?: No (07/26/2024 1:06 PM) How would you describe the condition of your mouth and teeth (including false teeth or dentures)?: Excellent (07/26/2024 1:06 PM) Have you had bothersome episodes of urinary incontinence?: No (07/26/2024 1:06 PM) Do you have any sexual problems you would like to discuss?: No (07/26/2024 1:06 PM) In the past 7 days, did you need help from others to perform everyday activities such as eating, getting dressed, grooming, bathing, walking or using the toilet?: No (07/26/2024 1:06 PM) In the past 7 days, did you need help from others to take care of things such as laundry, housekeeping, banking, shopping, using the telephone, food preparation, transportation, or taking your own medications?: No (07/26/2024 1:06 PM) Have you fallen in the past year?: No fall in the last year or 1 fall with no injury in the last year (07/26/2024 1:06 PM) Does your home have handrails on the stairs?: Yes (07/26/2024 1:06 PM) Does your home have rugs in the hallways?: No (07/26/2024 1:06 PM) Do you or any of your friends or family members have any concerns about your memory?: (!) Yes (07/26/2024 1:06 PM) In a typical week, how much alcohol do you drink?: None (07/26/2024 1:06 PM) Do you have a Living Will?: No, and I do not wish to discuss. (07/26/2024 1:06 PM) Cognitive Function Assessment Cognitive issues reported by patient or family. End-of-Life Planning/Advance Directive Discussion (ACP) Advanced Care Planning Do you have a Living Will?: No, and I do not wish to discuss. (07/26/2024 1:06 PM) See Care Team in Snapshot Objective BP 116/60 (BP Site: Right arm, BP Position: Sitting, BP Cuff Size: Adult) Pulse 57 Temp 98 ??F (36.7 ??C) (Oral) Ht 5' 2 (1.575 m) Wt 184 lb 6.4 oz (83.6 kg) LMP 05/17/2009 SpO2 98% BMI 33.73 kg/m?? Wt Readings from Last 3 Encounters: 07/26/24 184 lb 6.4 oz (83.6 kg) 03/07/24 182 lb (82.6 kg) 08/22/23 184 lb 11.9 oz (83.8 kg) BP Readings from Last 3 Encounters: 07/26/24 116/60 03/07/24 100/60 08/16/23 116/53 Physical Exam Vitals and nursing note reviewed. Constitutional: Appearance: She is well-developed. HENT: Head: Normocephalic. Eyes: Pupils: Pupils are equal, round, and reactive to light. Cardiovascular: Rate and Rhythm: Normal rate and regular rhythm. Heart sounds: Normal heart sounds. Pulmonary: Effort: Pulmonary effort is normal. Breath sounds: Normal breath sounds. Abdominal: General: Bowel sounds are normal. Palpations: Abdomen is soft. Musculoskeletal: General: Normal range of motion. Cervical back: Normal range of motion and neck supple. Skin: General: Skin is warm and dry. Neurological: Mental Status: She is alert and oriented to person, place, and time. Psychiatric: Behavior: Behavior normal. Thought Content: Thought content normal. Judgment: Judgment normal. Preventive Screening Plan & Wellness Schedule A screening/wellness schedule for appropriate services recommended over the next five to ten years was discussed and a copy of this schedule was given to Ms. Palmer. An After Visit Summary report was also provided in print or via Eventbr[employer] with information that includes future appointments/ orders, patient instructions, active medication list, allergies, and current immunizations. The patient/family provided verbal consent to the use of ambient listening technology/audio recording during this visit. I reviewed/edited the note before signing. documented in this encounter Plan of Treatment Upcoming Encounters Date Type Department Care Team (Late st Contact Info) Description 08/06/2024 1:30 PM EDT Appointment [facility] Cardiovascular Testing Center - [facility] - C-Level [address] [place] [address] Scheduled Orders Name Type Priority Associated Diagnoses Orde r Schedule VASCI-CAROTID DUPLEX COMP LALY Imaging Routine Stenosis of both internal carotid arteries Expected: 08/02/2024, Expires: 09/26/2025 documented as of this encounter Visit Diagnoses Diagnosis Encounter for subsequent annual wellness visit (AWV) in Medicare patient- Primary SOB (shortness of breath) on exertion Shortness of breath Essential hypertension Coronary artery disease involving [place] apache coronary artery of [place] apache heart without angina pectoris Stenosis of both internal carotid arteries Demyelinating disease ([facility]) Demyelinating disease of central nervous system, unspecified Back pain of lumbar region with sciatica Obesity (BMI 30.0-34.9) Obesity, unspecified Yeast infection Other and unspecified mycoses Fatty liver Other chronic nonalcoholic liver disease Pre-diabetes Other abnormal glucose documented in this encounter Additional Health Concerns Assessment Noted Time PHQ-9 Depression Total Score: 1 01/20/20 23 10:15 AM EST documented as of this encounter Care Teams Geographic Analyst Relationship Specialty Start Date End Date Nedra Duckworth NP [address] [facility] [address] [place] [address] PCP - General Nurse Practitioner, Family 06/21/23 Roberta Barlow MD [address] [facility] [address] [place] [address] Family Medicine 05/21/20 Lulú Lunsford, BELLA Registered Nurse 09/28/20 Spencer Henry MD [address] [facility] [place] [address] Interventional Cardiology 10/08/20 Bing Ho, BELLA [address] [place] [address] Registered Nurse 12/07/20 Philip Blair MD [address] [facility] [address] [place] [address] Internal Medicine 01/18/22 Jerrod Chatterjee MD [address] [place] [phone] Otolaryngology 02/18/22 Ed Stovall MD [address] [facility] [address] [place] [address] Gastroenterology 02/20/22 documented as of this encounter
--- NOTE | 2024-08-01 | CA_ITS ---
APPROVED REPORT Exam: Exercise Treadmill Technologist: Ileana Knowles Ht: 5 ft 2 in Wt: 188 lbs BSA: 1.86 m2 HR: 59 bpm BP: 174/74 mmHg Rhythm: NSR Medical History Medical History: HTN, Hyperlipidemia, Smoking Medications: Aspirin, Bisoprolol Fumarate, Cetirizine, Diltiazem, Lasix, Prasugrel, Rosuvastatin Allergies: Sulfa, Clopidogrel, Isosorbide, Iodine Cardiac Risk Factors: HTN, Hyperlipidemia, FHX of CAD, Smoking Stress Test Details Test: Exercise stress testing was performed using a Aris protocol. HR Resting HR: 59 bpm Max Heart Rate (APMHR): 153 bpm Max HR Achieved: 131 bpm Target HR (85% APMHR): 130 bpm % of APMHR: 86 Recovery HR: 78 bpm HR response to stress: Normal HR response to stress BP Resting BP: 174.0/74.0 mmHg Max BP: 198.0/80.0 mmHg Recovery BP: 172.0/74.0 mmHg BP response to stress: Normal blood pressure response to stress. ECG Resting ECG: NSR Stress EC mm horizontal ST depression Clinical Exercise duration: 6.45 min Exercise capacity: 8.3 METs Stress ECG Conclusion Pt had shortness of breath with peak exercise Ectopy: None ST changes: [address] depression CONCLUSION Average exercise capacity. Equivocal ECG changes at peak stress. Myoview images reported separately. Electronically signed by : Anel Hale MD 08/02/2024 15:40:15
--- OUTSIDE RECORDS SUMMARY | 2024-08-01 07:00 | XMS_ITS | Clinical Summary ---
Author Organization [facility] Address [address] [place] [address] Care Team Providers Care Email Marketing Manager Name Role Phone Kris Rhodes MD Primary Care Provider Unavaila ble Allergies Active Allergy Reactions Criticality Noted Date Comments Adhesive Tape 09/09/2009 Patient had a severe localized allergic reaction to Loban drape during her cervical spine fusion surgery. Iodine 08/05/2009 (Ioban) Blisters skin Other Rash Low 11/08/2010 Vykrel sutures Sulfa Antibiotics Swelling 11/08/2010 Medications TIZANIDINE HCL PO Take by mouth 2 times daily. 1 mg in am, 1.5 mg pm Active triamterene-hyd rochlorothiazid e (MAXZIDE-25) 37.5-25 MG per tablet Take 1 tablet by mouth daily. Active UNABLE TO FIND Place onto the skin. videlle patch 2 x weekly Active therapeutic multivitamin-mi nerals (THERAGRAN-M) tablet Take 1 tablet by mouth daily. Active Methylsulfonylm ethane (MSM) 750 MG CAPS Take 2 tablets by mouth. Active fish oil-omega-3 fatty acids 1000 MG capsule Take 2 g by mouth daily. Active aspirin 81 MG EC tablet Take 81 mg by mouth daily. Active rosuvastatin (CRESTOR) 5 MG tablet 08/22/2017 Active lisinopril (PRINIVIL;ZESTR IL) 5 MG tablet 08/27/2017 Act nitin fluticasone (FLONASE) 50 MCG/ACT nasal spray 08/28/2017 Active ezetimibe (ZETIA) 10 MG tablet 06/28/2017 Active loratadine (CLARITIN) 10 MG tablet Take 10 mg by mouth Active meloxicam (MOBIC) 7.5 MG tabletIndicatio ns:Adhesive capsulitis of left shoulder Take 2 tablets by mouth daily 30 tablet 11/18/2017 Active Active Problems No known active problems Social History Tobacco Use Types Packs/Day Years Used Date Smoking Tobacco: Former Smokeless Tobacco: Never Alcohol Use Standard Drinks/Week Comments Not Asked 0 (1 standard drink = 0.6 oz pur e alcohol) Comments Unknown Sex and Gender Information Value Date Recorded Sex Assigned at Not on file Legal Sex Female 11:44 PM EST Gender Identity Not on file Sexual Orientation Not on file Last Filed Vital Signs Vital Sign Reading Time Taken Comments Blood Pressure 117/71 11/16/2017 8:27 AM EDT Pulse 77 11/16/2017 8:27 AM EDT Temperature 36.8 C (98.2 F) 01/03/2011 12:32 PM EST Respiratory Rate 16 01/03/2011 12:32 PM EST Oxygen Saturation 97% 01/03/2011 12:32 PM EST Inhaled Oxygen Concentration - - Weight 76.2 kg (168 lb) 11/16/2017 8:27 AM EDT Height 160 cm (5' 3 ) 11/16/2017 8:27 AM EDT Body Mass Index 29.76 11/16/2017 8:27 AM EDT Plan of Treatment Not on file Insurance BCBS Advance Directives Documents on File Type Date Recorded 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
--- OUTSIDE RECORDS SUMMARY | 2024-08-01 07:00 | XMS_ITS | Encounter Summary ---
Author Organization [facility] Address [address] [place] [address] Care Team Providers Care White Kid Buffer Name Role Phone Tacos Ortiz MD Primary Care Provider [phone] Roberta Barlow MD Unavailable [phone] Lulú Lunsford RN Unavailable Unavailab Spencer Gallego MD Unavailable [phone] Bing Ho RN Unavailable Philip Blair MD Unavailable [phone] Jerrod Chatterjee MD Unavailable [phone] Ed Stovall MD Unavailable [phone] Nedra Duckworth NP Primary Care Provider [phone] Encounter Details Date Type Department Care Team (Late st Contact Info) Description 05/22/2023 Telephone [facility] Physical & Occupational Therapy Center, [facility] Leah [address] [place] [address] [address] [place] [address] Elsa Savage, OTR/L, CSRS [address] [place], [place] [id number] Social History Tobacco Use Types Packs/Day Years Used Date Smoking Tobacco: Former Cigarettes 0 02/14/1980 - 02/14/1984 Smokeless Tobacco: Never Comments:1989 Alcohol Use Standard Drinks/Week Comments Yes 0 (1 standard drink = 0.6 oz pur e alcohol) 1x month-occ PHQ-2 Answer Date Recorded PHQ-9 Auto Total 0 01/19/2023 Comments No Sex and Gender Information Value [...] Lyle Dominguez RN documented in this encounter Plan of Treatment Upcoming Encounters Date Type Department Care Team (Late st Contact Info) Description 08/06/2024 1:30 PM EDT Appointment [facility] Cardiovascular Testing Center - [facility] - C-Level [address] [place] [phone] documented as of this encounter Visit Diagnoses Not on filedocumented in this encounter Additional Health Concerns Assessment Noted Time PHQ-9 Depression Total Score: 1 01/20/20 10:15 AM EST documented as of this encounter Care Teams White Kid Buffer Relationship Specialty Start Date End Date Tacos Ortiz MD [address] [place] [address] PCP - General Internal Medicine 03/31/20 06/20/23 Nedra Duckworth NP [address] [place] [address] PCP - General Nurse Practitioner, Family 06/21/23 Roberta Barlow MD [address] [facility] [address] [place] [address] Family Medicine 05/21/20 Lulú Lunsford, BELLA Registered Nurse 09/28/20 Spencer Henry MD [address] [facility] [place] [address] Interventional Cardiology 10/08/20 Bing Ho, BELLA [address] [place] [address] Registered Nurse 12/07/20 Philip Blair MD [address] [facility] [address] [place] [address] Internal Medicine 01/18/22 Jerrod Chatterjee MD [address] [phone] Otolaryngology 02/18/22 Ed Stovall MD [address] [place] [address] Gastroenterology 02/20/22 documented as of this encounter
--- OUTSIDE RECORDS SUMMARY | 2024-08-01 07:01 | XMS_ITS | Encounter Summary ---
Author Organization [facility] Address [address] [place] [address] Care Team Providers Care Compugraph Operator Name Role Phone Roberta Barlow MD Unavailable [phone] Lulú Lunsford RN Unavailable Unavailab Spencer Gallego MD Unavailable [phone] Bing Ho RN Unavailable Philip Blair MD Unavailable [phone] Jerrod Chatterjee MD Unavailable [phone] Ed Stovall MD Unavailable [phone] Nedra Duckworth NP Primary Care Provider [phone] Encounter Details Date Type Department Care Team (Late st Contact Info) Description 01/23/2024 Abstract [facility] Physicians - Primary Care, [facility] [address] [facility] [address] [place] [phone] Lorene Anthony, SHAUNA [address] [place] [id number] Social History Tobacco Use Types Packs/Day Years [...] Description 08/06/2024 1:30 PM EDT Appointment [facility] Cardi[facility] - [facility] - C-Level [address] [place] [address] documented as of this encounter Visit Diagnoses Not on filedocumented in this encounter Additional Health Concerns Assessment Noted Time PHQ-9 Depression Total Score: 1 01/20/20 23 10:15 AM EST documented as of this encounter Care Teams Compugraph Operator Relationship Specialty Start Date End Date Nedra Duckworth NP [address] [facility] [address] [place] [address] PCP - General Nurse Practitioner, Family 06/21/23 Roberta Barlow MD [address] [facility] [address] [place] [address] Family Medicine 05/21/20 Lulú Lunsford, RN Registered Nurse 09/28/20 Spencer Henry MD [address] [facility] [place] [address] Interventional Cardiology 10/08/20 Bing Ho, BELLA [address] [place] [address] Registered Nurse 12/07/20 Philip Blair MD [address] [facility] [address] [place] [address] Internal Medicine 01/18/22 Jerrod Chatterjee MD [address] [phone] Otolaryngology 02/18/22 Ed Stovall MD [address] [facility] [place] [address] Gastroenterology 02/20/22 documented as of this encounter
--- OUTSIDE RECORDS SUMMARY | 2024-08-01 07:01 | XMS_ITS | Clinical Summary ---
Author Organization [facility] Phone Care Team Providers Care Tugboat Engineer Name Role Phone Caitlin Mckeon MA Conditions or Problems Problem Name Problem Code Onset Date Status Entry Date Provider Comment Standard Description Annotate UNSPECIFIED CONDITION OF BRAIN 91272221 (SNOMED CT) 07/03 Active 07/03 Christina Elder MA Disorder of brain HYPERREFLEXI A 96483284 (SNOMED CT) 06/05 Active 06/05 Brii Josué Hyperreflexia HERNIATED CERVICAL DISC 069870885 (SNOMED CT) 06/05 Active 06/05 Lisa Haines MA Displacement of cervical intervertebral disc Take Note of HYPERTENSION 49327023 (SNOMED CT) 05/29 Active 05/29 Syl Dominguez'Diogenes Hypertensive disorder Take Note of HYPERCHOLEST EROLEMIA 75841175 (SNOMED CT) 05/29 Active 05/29 Syl Marshall Hypercholesterol emia Take Note of ASTHMA 392176529 (SNOMED CT) 05/29 Active 05/29 Syl Marshall Asthma Medications Medication Instructions Start Date Stop Date Generic Name [facility] Provider ALLERGY 25 MG TABS (DIPHENHYDRAMINE HCL) one po q 6 hours ALLERGY 25 MG TABS (DIPHENHYDRAMINE HCL) Mindi French MD KEFLEX 500 MG ORAL CAPSULE one po BID CEPHALEXIN [id number] Mindi French MD HYDROXYZINE HCL 25 MG TABS one to two tabs po q 8 hours HYDROXYZINE HCL [id number] Mindi French MD CYCLOBENZAPRINE HCL TABLET [facility] CYCLOBENZAPRINE HCL TABS [id number] Syl O'Cairnbrook VITEYES OMEGA-3 200-300-5 MG-MG-UNIT ORAL CAPSULE [place] [id number] E [id number] Syl AngelicaDonnyDiogenes SIMVASTATIN TABS [place] SIMVASTATIN TABS [id number] Syl Marshall BISOPROLOL FUMARATE TABS [place] BISOPROLOL FUMARATE TABS [id number] Syl Masseyell Medications Administered No information available. Allergies, Adverse Reactions, Alerts Allergy Name Reaction Description Start Date Severity Statu s Provider IODINE Critical Caitlin Gof f MA SULFA Critical Syl O'Co nnell Results Date Name Value Unit Range Flag Description Lab Report: ABO GROUP & RH T YPE RH TYPE Positive Rh antigen ABO BLD GRP A ABO blood group Lab Report: CBC PLATELET CNT 377 10*3/uL 140-400 N platelet count HGB 14.3 g/dL 11.7-15.5 N Hemoglobin [Mass/volume] in Blood RBC 4.54 10*6/mm3 3.80-5.10 N Erythrocyt es [#/volume] in Blood by Automated count WBC COUNT 10.3 10*3/uL 3.8-10.8 N leukocyte count, blood Lab Report: BASIC METABOLIC PANEL GLUCOSE SER 114 mg/dL 65-99 H Glucose [ Mass/volume] in Serum or Plasma CREATININE 0.87 mg/dL 0.50-1.20 N Creatini ne [Mass/volume] in Serum or Plasma POTASSIUM 3.6 mmol/L 3.5-5.1 N Potassium [Moles/volume] in Serum or Plasma SODIUM 137 mmol/L 135-146 N Sodium [Moles /volume] in Serum or Plasma Plan of Care Type Date Detail Pending order MRI Thoracic wit hout contrast Pending order MRI Brain withou t gadolinium Pending order MRI Brain withou t gadolinium Pending order MRI Thoracic wit hout contrast Pending order X-ray Cervical A P & Lateral Pending order X-ray Cervical A P & Lateral Pending order X-ray Cervical A P & Lateral Pending order X-ray Cervical A P & Lateral Procedures No information available. Vital Signs Date Name Value Unit Description Height 63 [in_us] height E&M Weight Measured 167 [lb_av] weight E& M Weight Measured 167 [lb_av] weight E& M BMI (Body Mass Index) 29.58 kg/m2 Bod y Mass Index (Ratio) BP Diastolic 64 mm[Hg] blood pressu re, diastolic BP Systolic 112 mm[Hg] blood pressur e, systolic Heart Rate 72 /min pulse rate Immunizations No information available. Advance Directives No information available.
--- OUTSIDE RECORDS SUMMARY | 2024-08-01 07:01 | XMS_ITS | Encounter Summary ---
Author Organization Health Address [address] [place] [address] Care Team Providers Care Train Engineer Name Role Phone Kris Rhodes MD Primary Care Provider Mazin manriquez Source Comments This information has been disclosed to you from confidential records protectfrom disclosure by state law. You shall make no further disclosure of thisinformation without the specific, written, and informed release of theindividual to whom it pertains, or as otherwise permitted by law. A generalauthorization for the release of medical or other information is not sufficientfor the purposes of the release of HIV test results or diagnoses. [id number] Health Encounter Details Date Type Department Care Team (Late st Contact Info) Description 09/25/2017 Orders Only [facility] [address] [place] [id number] Chanelle Gottlieb MD [address] [place] [address] [place] [id number] Screening breast examination (Primary Dx) Social History Tobacco Use Types Packs/Day Years Used Date Smoking Tobacco: Never Assessed Comments Unknown Sex and Gender Information Value Date Recorded Sex Assigned at Not on file Legal Sex Female 6:27 PM EST Gender Identity Not on file Sexual Orientation Not on file documented as of this encounter Plan of Treatment Not on file documented as of this encounter Visit Diagnoses Diagnosis Screening breast examination- Primary Other screening breast examination documented in this encounter Care Teams Train Engineer Relationship Specialty Start Date End Date Kris Rhodes MD PCP - General 04/21/06 documented as of this encounter
--- OUTSIDE RECORDS SUMMARY | 2024-08-01 07:01 | XMS_ITS | Clinical Summary ---
Author Organization [facility] Address [address] [place] [id number] Care Team Providers Care Outdoor Guide Name Role Phone Kris Rhodes MD Primary Care Provider Mazin manriquez Source Comments This information has been disclosed to you from confidential records protectedfrom disclosure by state law. You shall make no further disclosure of thisinformation without the specific, written, and informed release of theindividual to whom it pertains, or as otherwise permitted by law. A generalauthorization for the release of medical or other information is not sufficientfor the purposes of therelease of HIV test results or diagnoses. [id number] Active Problems Problem Noted Date Diagnosed Date Urinary tract infection, site not specified 08/2010 Rash and other nonspecific skin eruption 010 Encounter for long-term (current) use of other m edications 01/01/2010 Disease of spinal cord 12/24/2009 Overview (11/12/2014): ICD-10 Transition Abnormality of gait 12/24/2009 Other nonspecific abnormal r esult of function study of brain and central nervous system 12/24/2009 Routine general medical exam ination at a health care facility 12/10/2009 Cerebral artery occlusion with cerebral infarcti on 08/13/2009 Overview (11/12/2014): ICD-10 Transition Abdominal pain, other specified site 07/22/2009 Disturbance of skin sensation 07/20/2009 Multiple sclerosis 07/06/2009 Lump or mass in breast 12/08/2008 Brachial neuritis or radiculitis 12/08/2008 Overview (11/12/2014): ICD-10 Transition Other malaise and fatigue 08/11/2008 Benign neoplasm of colon 08/11/2008 Pure hypercholesterolemia 08/11/2008 Essential hypertension 08/11/2008 Overview (11/12/2014): ICD-10 Transition Other diseases of lung, not elsewhere classified 08/11/2008 Overview (06/03/2011): noncalcified Dyspareunia 08/11/2008 Pain in joint, lower leg 08/11/2008 Other dyspnea and respiratory abnormality 2008 Cough 08/11/2008 Immunizations Immunization Administration Dates Next Due Influenza, unspecified 12/10/2009,11/23/2007 Td 11/23/2007 Social History Tobacco Use Types Packs/Day Years Used Date Smoking Tobacco: Never Assessed Comments Unknown Sex and Gender Information Value Date Recorded Sex Assigned at Not on file Legal Sex Female 6:27 PM EST Gender Identity Not on file Sexual Orientation Not on file Plan of Treatment Not on file Insurance Let Care Teams Outdoor Guide Relationship Specialty Start Date End Date Kris Rhodes MD PCP - General 04/21/06
--- OUTSIDE RECORDS SUMMARY | 2024-08-01 07:01 | XMS_ITS | Clinical Summary ---
Author Organization [facility] Address [address] [place] [id number] Care Team Providers Care Apple Packing Header Name Role Phone Roberta Barlow MD Unavailable [phone] Lulú Lunsford RN Unavailable Unavailab Ev Gallego MD Unavailable Bing Ho RN Unavailable Philip Blair MD Unavailable [phone] Jerrod Chatterjee MD Unavailable [phone] Ed Stovall MD Unavailable [phone] Nedra Duckworth NP Primary Care Provider [phone] Allergies Active Allergy Reactions Criticality Noted Date Comments Adhesive 09/09/2009 Patient had a severe localized allergic reaction to Loban drape during her cervical spine fusion surgery. Amoxicillin-Pot Clavulanate Other (See Comments) 02/26/2024 rash Hymenoptera Allergenic Extract 08/03/2009 Other reaction(s): Other (See Comments) . Iodine 08/05/2009 (Ioban) Blisters skin Other 07/15/2008 Vicryl sutures -- green blisters Also bee stings.swelling Septra I.V. Hives,Itching Medium 02/18/2022 Sulfa (Sulfonamide Antibiotics) Swelling 07/15/2008 Sutures 02/08/2023 Vicryl Medications UBIDECARENONE (COENZYME Q10) 100 mg PO Tab Take 1 Tablet by mouth in the morning and 1 Tablet in the evening. . Active aspirin 81 mg Tablet, Delayed Release (E.C.) Take 81 mg by mouth in the morning. Active loratadine (CLARITIN) 10 mg tablet Take 10 mg by mouth in the morning. Active bisoprolol (ZEBETA) 5 mg tablet Take 5 mg by mouth in the morning. Active rosuvastatin (CRESTOR) 20 mg Tablet Take 20 mg by mouth every evening. Active diltiazem (CARDIZEM CD) 180 mg capsule Take 180 mg by mouth in the morning. 11/11/19 21 Active Cholecalcifero l, Vitamin D3, 25 mcg (1,000 unit) Capsule Take by mouth in the morning. Active hwzuv-ns-3-dha -vdx-djjqmmx-g st (krill oil) [phone] 0 mg Capsule Take 350 mg of caffeine citrate by mouth in the morning and 350 mg of caffeine citrate in the evening. Active Prasugrel (Effient) 10 mg Tablet Take 10 mg by mouth in the morning. 12/15/19 24 Active tirzepatide, weight loss, (Zepbound) 2.5 mg/0.5 mL SolutionIndica tions:Obesity (BMI 30.0-34.9) 0.5 mL (2.5 mg) by Subcutaneous route once weekly. 2 mL 07/27/19 25 Active albuterol (VENTOLIN/PROA IR/PROVENTIL HFA) 90 mcg/actuation HFA Aerosol InhalerIndicat ions:Bronchiti s Take 2 Puffs by inhalation 4 times daily. 1 Each 02/25/19 25 025 Discontinu ed(Therapy Completed) spacer (BreatheRite MDI Spacer) SpacerIndicati ons:Bronchitis Use with inhaler. 1 Each 02/25/19 25 025 Discontinu ed(Therapy Completed) budesonide-for moteroL (Symbicort) 80-4.5 mcg/actuation HFA Aerosol InhalerIndicat ions:Bronchiti s Take 2 Puffs by inhalation 2 times daily. 6.9 g 1 03/07/19 25 025 Discontinu ed(Therapy Completed) Cefdinir (OMNICEF) 300 mg capsuleIndicat ions:Bronchiti s Take 1 Capsule (300 mg) by mouth every 12 hours. 14 Capsule 03/07/19 25 025 Discontinu ed(Therapy Completed) promethazine-d extromethorpha n (PROMETHAZINE- DM) 6.25-15 mg/5 mL syrupIndicatio ns:cough Take 5 mL by mouth every 8 hours as needed for Cough. Indications: cough 118 mL 03/07/19 25 025 Discontinu ed(Therapy Completed) methylPREDNISo lone (MEDROL) 4 mg tab (dosepak) Take 1 Package by mouth See instructions. follow package directions 21 Tablet 05/29/19 Discontinu ed(Therapy Completed) fluconazole (DIFLUCAN) 150 mg tablet Take 150 mg by mouth once. 07/26/19 25 Discontinu ed(Reorder ) fluconazole (DIFLUCAN) 150 mg tabletIndicati ons:Yeast infection Take 1 Tablet (150 mg) by mouth once for 1 dose. 1 Tablet 07/27/19 Active Problems Problem Noted Date Diagnosed Date Fatty liver 07/26/2024 Bladder mass 07/31/2023 Fecal smearing 02/08/2023 Dyspnea on exertion 12/31/2016 Chronic seasonal allergic rhinitis due to pollen 11/29/2016 RLS (restless legs syndrome) 11/29/2016 Obesity (BMI 30-39.9) 11/29/2016 Diarrhea 02/17/2015 Metabolic acidosis 02/17/2015 Dehydration 02/17/2015 Essential hypertension, benign 08/05/2010 History of colonic polyps 09/14/2007 Overview (11/14/2016): patient had a screening colonoscopy in September of 2007 which revealed one hyperplastic descending colon polyp. She also had a colonoscopy in December 2010 for a change in bowel habits. This was performed by Dr. Calvert and revealed no polyps. Replaced inactive diagnosis via diagnosis import Essential hypertension Overview (02/03/2011): patient's blood pressure has been excellent control for many years. Hyperreflexia Overview (02/03/2011): patient underwent extensive neurology consultation by Dr. Colon in [place] and had a second opinion at the [facility]. There was no evidence of multiple sclerosis or any other demyelinating process. After this extensive neurology evaluation, it was felt that her paresthesias, hyperreflexia, and slight ataxia related to previous cervical cord compression prior to her neck surgery. Hyperlipidemia Overview (02/03/2011): patient has been treated with statin therapy 2004. She has ahd excellent results, but does develope muscle soreness with Statins.. Coronary artery disease involving aniak coronar y artery Overview (05/21/2020): stent in LAD Encounters Date Type Department Care Team Description 07/26/2024 1:30 PM EDT Office Visit [facility], [address] [phone] Nedra Duckworth NP Encounter for subsequent annual wellness visit (AWV) in Medicare patient (Primary Dx); SOB (shortness of breath) on exertion; Essential hypertension; Coronary artery disease involving aniak coronary artery of aniak heart without angina pectoris; Stenosis of both internal carotid arteries; Demyelinating disease ([facility]); Back pain of lumbar region with sciatica; Obesity (BMI 30.0-34.9); Yeast infection; Fatty liver; Pre-diabetes 07/26/2024 Results Follow-Up [facility], [address] [phone] Nedra Duckworth NP CBC WITH DIFFERENTIAL, COMPREHENSIVE METABOLIC PANEL, URINALYSIS W/ REFLEX TO MICROSCOPIC, Additional followed-up results: 5 07/25/2024 Orders Only [facility], [address] [phone] Nedra Duckworth NP Elevated glucose (Primary Dx) 07/23/2024 10:25 AM EDT - 07/23/2024 11:59 PM EDT Hospital Encounter Laboratory [address] [place], [place] [address] [address] [place] [address] Fatigue, unspecified type; Coronary artery disease involving aniak coronary artery of aniak heart without angina pectoris; Vitamin D deficiency Discharge Disposition: Home or Self Care 07/21/2024 Orders Only [facility] - Primary Care, [address] [place] [phone] Nedra Duckworth NP Fatigue, unspecified type (Primary Dx); Coronary artery disease involving aniak coronary artery of aniak heart without angina pectoris; Vitamin D deficiency 07/19/2024 Orders Only [facility] Primary Care, [address] [place] [phone] Nedra Duckworth NP Back pain of lumbar region with sciatica (Primary Dx) 06/14/2024 Results Follow-Up [facility], [address] [place] [phone] Nedra Duckworth NP [id number] 2 OR 3-VIEWS 06/13/2024 12:33 PM EDT - 06/13/2024 11:59 PM EDT Hospital Encounter X-Ray [address] [place] [address] [address] [place], [place] [id number] Acute right-sided low back pain with right-sided sciatica Discharge Disposition: Home or Self Care 06/13/2024 11:57 AM EDT - 06/13/2024 12:32 PM EDT Hospital Encounter [facility] Medical Office Building, [address] [place], [place] [phone] Screening mammogram for breast cancer Discharge Disposition: Home or Self Care 06/13/2024 Results Follow-Up [facility], [address] [place] [phone] Nedra Duckworth, SHELBI MAMM-SCREENING W/BIBI 06/13/2024 Orders Only [facility] [address] [place] [address] [address] [place] [address] Orders, Generic Provider 06/12/2024 Telephone [facility] [address] [place] [address] [address] [place] [address] 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 Refill [facility] - Primary Care, [facility] [address] [place] [address] [address] [place] [address] Nedra Duckworth NP Medications Refill 05/28/2024 Orders Only [facility] - Primary [facility], [facility] [address] [place] [address] [address] [place] [address] Nkechi Leon NP Acute right-sided low back pain with right-sided sciatica (Primary Dx) from Last 3 Months Immunizations Immunization Administration Dates Next Due Influenza (whole) 01/01/2014,02/21/2013,02/04/20 11 Influenza, High Dose Seasona l, Preservative Free (Fluzone HD 65yrs and over) 11/27/2023 Td 11/23/2007 Family History Medical History Relation Name Comments Heart Problems Brother Heart Problems Father Stroke Maternal Grandfather Stroke Maternal Grandmother Heart Problems Mother Hypertension Mother Heart Problems Paternal Grandfather Thyroid Disease Paternal Grandmother Anesthesia Complications Neg Hx Relation Name Status Comments Brother Father Maternal Grandfather Maternal Grandmother Mother Other Mom had 3 enda rterectomy surgeries Paternal Grandfather Paternal Grandmother Social History Tobacco Use Types Packs/Day Years [...] Orientation Straight 02/04/2023 8: 23 PM EST Last Filed Vital Signs Vital Sign Reading Time Taken Comments Blood Pressure 116/60 07/26/2024 1:01 PM EDT Pulse 57 07/26/2024 1:01 PM EDT Temperature 36.7 C (98 F) 07/26/2024 1:01 PM EDT Respiratory Rate 16 08/16/2023 11:00 AM EDT Oxygen Saturation 98% 07/26/2024 1:01 PM EDT Inhaled Oxygen Concentration - - Weight 83.6 kg (184 lb 6.4 oz) 07/26/2024 1:01 P M EDT Height 157.5 cm (5' 2 ) 07/26/2024 1:01 PM EDT Body Mass Index 33.73 07/26/2024 1:01 PM EDT Plan of Treatment Upcoming Encounters Date Type Department Care Team (Late st Contact Info) Description 08/06/2024 1:30 PM EDT Appointment [facility] Cardiovascular Testing Center - [facility] - C-Level [address] [place] [address] Health Maintenance Due Date Last Done Comments FIT 1955 Pneumococcal Vaccine: 50+ Years (1 of 1 - PCV) 2007 Zoster-RZV(Shingrix) (1 of 2) 2007 Tetanus Vaccination (Every 10 Years) 12/11/2019 12/10/2009, 11/23/2007 Osteoporosis Screening 2022 05/28/2013 BMI Counseling 02/14/2024 Colonoscopy 02/24/2025 02/24/2022, 02/13, 01/03/2011 Colorectal Cancer Screening 02/24/2025 Lipid Monitoring 07/23/2025 07/23/2024, 06/2023, 09/28/2020, Additional history exists COVID-19 Vaccine ( season) 2025 11/27/2023, 11/17/2021, 12/11/2020, Additional history exists Postponed from 05/27/2024 (Vaccine Currently Unavailable) Fall Risk Assessment 07/26/2025 07/26/2024 Cologuard 02/24/2026 02/24/2023 Breast Cancer Screening 06/13/2026 06/14/19 25, 03/27/2013, 03/24/2010 RSV Vaccines (1 - 1-dose 75+ series) 2032 Cervical Cancer Screening Discontinued 10/26/2011 Hepatitis C Virus (HCV) Screening Completed 02/16/2015 Influenza Vaccination (Yearly) Discontinued 11/27/2023, 01/01/2014, 02/21/2013, Additional history exists Influenza Vaccination Completed 11/27/2023 , 01/01/2014, 02/21/2013, Additional history exists Lipid Screening Discontinued 07/23/2024, 0606/2023, 09/28/2020, Additional history exists (Reporting Purposes Only) Calendar Year Medicare Annual Wellness (AWV) Completed 07/26/2024, 07/21/2023 Advance Care Planning Completed 07/26/2024, 024 Advance Care Planning Discontinued 07/26/2024, 024 Depression Screening Completed 07/26/2024, 07/21/2023, 01/19/2023 Medical Devices Implanted Type Area Flight Deck Officer Device Identifier Shelf Expiration Date Model / Serial / Lot Spinal Graft Tissue - S1 Implanted:Qty: 1 on 07/15/2008 at [facility] OR N/A: Spine Cervical * [employer] [id number] / / Plate Cerv Ant Vision 25mm - S1 Implanted:Qty: 1 on 07/15/2008 at [facility] OR N/A: Spine Cervical * [employer] [id number] / / Screw Vari Ang Slf-Drl 4x14mm - S1 Implanted:Qty: 4 on 07/15/2008 at [facility] OR N/A: Spine Cervical * [employer] [id number] / / Procedures Procedure Name Priority Date/Time Associated Diagnosis Comments HGB, A1C (GLYCOHEMOGLOBIN) STAT Future 07/23/2024 10:41 AM EDT DIFFERENTIAL Routine 07/23/2024 10:41 AM EDT VITAMIN D 25 HYDROXY TOTAL Routine 07/23/2024 10:41 AM EDT Vitamin D deficiency TSH 3RD GEN, REFLEX FT4 Routine 07/23/2024 10:41 AM EDT Fatigue, unspecified type LIPID PROFILE Routine 07/23/2024 10:41 AM EDT Coronary artery disease involving aniak coronary artery of aniak heart without angina pectoris URINALYSIS W/ REFLEX TO MICROSCOPIC Routine 07/23/2024 10:41 AM EDT Fatigue, unspecified type COMPREHENSIVE METABOLIC PANEL Routine 07/23/2024 10:41 AM EDT Fatigue, unspecified type CBC WITH DIFFERENTIAL Routine 07/23/2024 10:41 AM EDT Fatigue, unspecified type [id number] 2 OR 3-VIEWS Routine 06/13/2024 12:43 PM EDT Acute right-sided low back pain with right-sided sciatica MAMM-SCREENING W/BIBI Routine 06/13/2024 12:26 PM EDT Screening mammogram for breast cancer QUESTIONNAIRE FOR HEREDITARY CANCER SHONA CHATBOT Routine 06/13/2024 EXTERNAL COLONOSCOPY - SEE COMMENT Routine 02/24/2022 5:04 PM EST HEPATITIS C AB WITH REFLEX TO HCV,RNA,QUANT PCR Routine 02/16/2015 10:46 PM EST DXA-DEXA SCAN AXIAL SKELETON Routine 05/28/2013 2:41 PM EDT Other specified menopausal and postmenopausal disorder from Last 3 Months or Most Recently Relevant to Health Maintenance Results * DIFFERENTIAL (07/23/2024 10:41 AM EDT) Neutrophils [...] [facility] Neutrophils Relative 55.5 % [facility] Lymphocytes Relative 31.0 % [facility] Monocytes Relative 7.6 % [facility] Eosinophils Relative 4.7 % [facility] Basophils Relative 0.7 % [facility] Immature Granulocytes 0.5 % [facility] nRBC 0 0 - 0 /100 WBC [facility] Whole Blood 07/23/2024 10:4 1 AM EDT 07/23/2024 1:30 PM EDT Nedra Duckworth SUMMER BABYSITTER HEMATOLOGY ORDERABLES Final Res ult Performing Organization Address [facility]/ZIP Co de Phone Number [facility] [address] * CBC WITH DIFFERENTIAL (07/23/2024 10:41 AM EDT) WBC 8.71 4.00 - 12.00 10*3/uL [facility] RBC 4.65 3.80 - 5.10 10*6/uL [facility] Hemoglobin 13.8 11.7 - 15.5 g/dL [facility] Hematocrit Blood 44.1 35.0 - 46.0 % [facility] MCV 94.8 80.0 - 100.0 fL [facility] MCH 29.7 27.0 - 33.0 pg [facility] MCHC 31.3 30.0 - 36.0 g/dL [facility] RDW 12.6 11.0 - 15.0 % [facility] Platelets 324 140 - 400 10*3/uL [facility] MPV 9.9 9.0 - 13.0 fL [facility] Whole Blood 07/23/2024 10:4 1 AM EDT 07/23/2024 1:30 PM EDT eNdra Duckworth SUMMER BABYSITTER HEMATOLOGY ORDERABLES Final Res ult Performing Organization Address City/[facility]/ZIP Co de Phone Number [facility] [address] * (ABNORMAL) URINALYSIS W/ REFLEX TO MICROSCOPIC (07/23/2024 10:41 AM EDT) Color, UA Yellow Yellow,Straw ,Colorless [facility] Clarity, UA Clear Clear [facility] Glucose, UA Negative Negative mg/dL [facility] Bilirubin, UA Negative Negative [facility] Ketones, UA Negative Negative mg/dL [facility] Spec Grav, UA 1.009 1.005 - 1.035 [facility] Blood, UA Negative Negative [facility] REIMBURSEMENT REPRESENTATIVE [facility] pH, Urine 6.0 5.0 - 8.0 [facility] REIMBURSEMENT REPRESENTATIVE [facility] Protein, UA Negative Negative mg/dL [facility] Urobilinogen, UA <2.0 <2.0 mg/dL [facility] Nitrite, UA Negative Negative [facility] Leukocyte esterase UA Small(A) Negative [facility] RBC, UA <1 /HPF 0 - 3 /HPF [facility] WBC 6(H) 0 - 5 /HPF [facility] Squam Epithel, UA 1 0 - 5 /HPF [facility] Urine 07/23/2024 10:4 1 AM EDT 07/23/2024 1:30 PM EDT Nedra Duckworth SUMMER BABYSITTER URINE ORDERABLES Final Result Performing Organization Address [facility] Co de Phone Number [facility] [address] * TSH 3RD GEN, REFLEX FT4 (07/23/2024 10:41 AM EDT) TSH REFLEX 3.25 0.35 - 4.94 uIU/mL [facility] Serum (Serum) 07/23/2024 10: 41 AM EDT 07/23/2024 1:23 PM EDT Nedra Duckworth SUMMER BABYSITTER CHEMISTRY ORDERABLES Final Resu lt Performing Organization Address City/[facility]/ZIP Co de Phone Number [facility] [address] * (ABNORMAL) LIPID PROFILE (07/23/2024 10:41 AM EDT) Cholesterol 139 125 - 199 mg/dL [facility] Comment: TOTAL CHOLESTEROL INTERPRETATION: Less than 200 mg/dL Desireable 200-239 mg/dL Borderline Greater or Equal to 240 mg/dL High LDL Calculated 64 0 - 100 mg/dL [facility] Comment: LDL CHOLESTEROL INTERPRETATION: Less than 100 mg/dL Optimal 100-129 mg/dL Near optimal/above optimal 130-159 mg/dL Borderline High 160-189 mg/dL High Greater or Equal to 190 mg/dL Very High HDL 43 40 - 180 mg/dL [facility] Comment: HDL CHOLESTEROL INTERPRETATION: Less than 40 mg/dL Low Greater than 60 mg/dL Desirable Triglycerides 158(H) 0 - 149 mg/dL [facility] Comment: TOTAL TRIGLYCERIDE INTERPRETATION: Less than 150 mg/dL Normal 150-199 mg/dL Borderline HIgh 200-499 mg/dL High Greater or Equal to 500 mg/dL Very High NONHDL Calculated 96 0 - 129 mg/dL [facility] Comment: NON-HDL INTERPRETATION: Less than 130 mg/dL Desirable 130-159 mg/dL Above Desirable 160-189 mg/dL Borderline High 190-219 mg/dL High Greater than or equal to 220 mg/dL Very High Serum (Serum) 07/23/2024 10: 41 AM EDT 07/23/2024 1:23 PM EDT Nedra Duckworth SUMMER BABYSITTER CHEMISTRY ORDERABLES Final Resu lt [facility] [address] * (ABNORMAL) HGB, A1C (GLYCOHEMOGLOBIN) (07/23/2024 10:41 AM EDT) Hgb A1C 6.0(H) 4.0 - 5.6 % [facility] Comment: Reference Ranges for [...] Glycohemoglobin Standardization program (NGSP) and traceable to [facility]. Estimated Average Glucose 126(H) 68 - 114 mg/dL [facility] Whole Blood 07/23/2024 10:4 1 AM EDT 07/26/2024 9:21 AM EDT us Nedra Duckworht SUMMER BABYSITTER CHEMISTRY ORDERABLES Final Resu lt [facility] [address] * (ABNORMAL) COMPREHENSIVE METABOLIC PANEL (07/23/2024 10:41 AM EDT) Sodium 141 135 - 146 mmol/L [facility] Potassium 4.8 3.5 - 5.1 mmol/L [facility] Chloride 107 98 - 110 mmol/L [facility] CO2 27 22 - 29 mmol/L [facility] Anion Gap 7 5 - 13 mmol/L [facility] Comment:Anion gap calculatio n does not include potassium (K+) value. BUN 15 7 - 25 mg/dL [facility] Creatinine 0.86 0.50 - 1.20 mg/dL [facility] Glucose 110(H) 71 - 99 mg/dL [facility] Comment:Reference range (71- 99 mg/dL) refers only to fasting samples, and does not apply to non-fasting samples. eGFR CKD-EPI 2020 74 See Note [facility] Comment: eGFR calculated with 2020 CKD-EPI equation using creatinine, patient's age and gender. Other factors, especially muscle mass, may affect accuracy and need to be considered. Patient values should be interpreted as a trend. The reference interval is >60 mL/min/1.73m2. Calcium 9.7 8.5 - 10.5 mg/dL [facility] Total Bilirubin 1.2 0.2 - 1.2 mg/dL [facility] AST 58(H) 0 - 30 U/L [facility] ALT 86(H) 0 - 40 U/L [facility] Alkaline Phosphatase 80 33 - 140 U/L [facility] Total Protein 7.4 6.0 - 8.0 g/dL [facility] Albumin 4.6 3.5 - 5.0 g/dL [facility] Globulin 2.8 2.0 - 3.7 g/dL [facility] Albumin/Globulin Ratio 1.6 1.0 - 2.1 [facility] BUN/Creatinine Ratio 17 [facility] Serum (Serum) 07/23/2024 10: 41 AM EDT 07/23/2024 1:23 PM EDT Nedra Duckworth SUMMER BABYSITTER CHEMISTRY ORDERABLES Final Resu lt Performing Organization Address [facility] Co de Phone Number [facility] [address] * VITAMIN D 25 HYDROXY TOTAL (07/23/2024 10:41 AM EDT) Vit D, 25-Hydroxy 45 30 - 80 ng/mL [facility] Comment: Therapy is based on measurement of Total 25-OHD, with levels <20 ng/mL indicative of Vitamin D deficiency, while levels between 20 ng/mL and 30 ng/mL suggest insufficiency. Sufficient levels are >or = 30 ng/mL. Serum 07/23/2024 10:4 1 AM EDT 07/23/2024 1:23 PM EDT Nedra Duckworth SUMMER BABYSITTER CHEMISTRY ORDERABLES Final Resu lt Performing Organization Address [facility]/ZIP Co de Phone Number [facility] [address] * [id number] 2 OR 3-VIEWS (06/13/2024 12:43 PM EDT) Anatomical Region Laterality Modality T-Spine, L-Spine, Pelvis Radiogr aphic Imaging 06/13/2024 3:36 PM EDT Impressions 06/13/2024 3:37 PM EDT IMPRESSION: Mild to moderate degenerative disc disease without vertebral height loss or malalignment. The findings do not appear significantly changed from 2022. Electronically signed by Larry Arriaga MD Narrative 06/13/2024 3:37 PM EDT EXAM: [id number] 2 OR 3-VIEWS INDICATION: Lower back pain COMPARISON: January 10, 2023 FINDINGS: 3 views. Vertebral body heights and alignment are normal. Mild to moderate multilevel degenerative disc disease is noted. Moderate vascular calcifications. Procedure Note Larry Arriaga MD - 06/13/2024 EXAM: [id number] 2 OR 3-VIEWS INDICATION: Lower back pain COMPARISON: January 10, 2023 FINDINGS: 3 views. Vertebral body heights and alignment are normal. Mild to moderatemultilevel degenerative disc disease is noted. Moderate vascularcalcifications. IMPRESSION: Mild to moderate degenerative disc disease without vertebral height lossor malalignment. The findings do not appear significantly changed [id number]. Electronically signed by Larry Arriaga MD Nkechi Leon NP IMG DIAGNOSTIC IMAGING ORDERABLES Final Result * MAMM-SCREENING W/BIBI (06/13/2024 12:26 PM EDT) [...] additional imaging and/or biopsy is indicated, [facility] staff will inform the patient [...] full-field digital mammographic and computer-aided detection. The [employer] recommends annual screening mammography for women age 40 and above. Please note that mammography is not 100% accurate in diagnosing breast cancer. A routine breast examination is recommended to correlate with mammographic findings. [facility], [address], [place] [address] GARRICK Nevarez EV 1955 Signed By: Alec Chavez MD 06/13/2024 [...] using full-field digitalmammographic and computer-aided detection. The [employer] recommends annual screening mammographyfor women age 40 and above. Please note that mammography is not 100% accurate in diagnosing breastcancer. A routine breast examination is recommended to correlate withmammographic findings. [facility], [address],[place] [address] GARRICK CARRENO 1955 Signed By: Alec Chavez MD us Nedra Duckworth SUMMER BABYSITTER IMG MAMMO ORDERABLES Final Resu lt * QUESTIONNAIRE FOR HEREDITARY CANCER SHONA HEENA (06/13/2024) SHNOA NCCN Assessment Complete INVITAE SHONA MET NCCN CRITERIA INVITAE SHONA MET TYRER CUZICK CRITERIA does_not_ meet_crit eria INVITAE [facility] SHONA Tyrer Cuzick Score 4.9 INVITAE SHONA ASBRS Assessment Complete does_not_ meet_crit eria INVITAE SHONA MET ASBRS CRITERIA INVITAE SHONA PATIENT REQUESTING TESTING INVITAE Comment: This result is based on a questionnaire completed prior to a recent visit at [facility]. This result is based on self-reported information meaning this result could change if new information becomes available in their medical or family history. The SHONA questionnaire assesses personal risk factors and family history to determine if patients meet NCCN guidelines or ASBrS criteria for genetic testing, and assesses Tyrer-Cuzick score to determine if a patient should consider high-risk breast cancer screening. * NCCN stands for the National Comprehensive Cancer Network. These guidelines are used to determine if patients meet the criteria for genetic testing for hereditary cancer based on personal and family history of cancer * ASBrS stands for the [place] [employer]. ASBrS criteria recommends that all patients with a personal history of breast cancer consider genetic testing. * A Tyrer-Cuzick score is a risk model used to estimate the likelihood that a person will develop breast cancer within the next 10 years. It also estimates their risk over a lifetime. This score is an estimate and is not a lab result based on a saliva or blood sample. This result is based on reported information about personal and family history. If this result indicates that the patient meets any of these criteria, they may be eligible for genetic testing or high risk cancer screening. A referral for genetic counseling may be placed using REF12C: Genetic Counseling. If this result indicates that they do not meet these criteria, no follow up is needed at this time. A blank result may be due to incomplete information in the questionnaire. As a reminder this is not a genetic testing result. Genetic testing may still be offered or recommended by the patient s providers, even if they do not meet criteria based on this self-reported information. The [facility] Contact is [phone]. 06/13/2024 Generic Provider Orders [facility] Final Re sult Performing Organization Address [facility] Co de Phone Number [facility] * EXTERNAL COLONOSCOPY - SEE COMMENT (02/24/2022 5:04 PM EST) Nedra Duckworth NP [facility] Final Result * HEPATITIS C AB (02/16/2015 10:46 PM EST) HCV Qual Interp Nonreactive Nonreactive [facility] Comment:IgG and IgM anti-HCV not detected. Signal/Cutoff 0.05 0.00 - 1.00 S/CO [facility] Serum 02/16/2015 10:4 6 PM EST 02/16/2015 10:46 PM EST Glenis Bush NP HEMATOLOGY ORDERABLES Final R esult Performing Organization Address [facility] Co de Phone Number [facility] [address] * PATRICE-DXA SCAN AXIAL SKELETON (05/28/2013 2:41 PM EDT) Anatomical Region Laterality Modality Mammography 05/29/2013 8:31 AM EDT Impressions 05/29/2013 8:33 AM EDT IMPRESSION: Normal bone mineral density Signed By: Tacos Luque Narrative 05/29/2013 8:33 AM EDT DEXA SCAN 05/28/2013 INDICATION: Postmenopausal The T-value compares the patient's bone mineral density to the peak bone mass of a healthy, 30-year-old race and sex-matched adult. According to NOF (National Osteoporosis Foundation) and the NIH (National Institution of Health) criteria, patient's with T-values between -1.0 and -2.5 are osteopenic. The patient with a T-value less than -2.5 is osteoporotic. AP digital radiograph of the lumbar spine was obtained, with bone density value measurements calculated from L1 through L4. The average bone density value of the lumbar spine is 1.266 g/cm2, with a T-score of 2.0, and a Z-score of 3.1. Bone density value of the left hip total measures 1.013 g/sq cm, with a T-score of 0.6, and a Z-score of 1.3. Measured specifically at the level of the femoral neck, the bone density value is 0.875 g/cm2, with a T-score of 0.2. Bone density value of the right hip total measures 1.020 g/sq cm, with a T-score of 0.6, and a Z-score of 1.4. Measured specifically at the level of the femoral neck, the bone density value is 0.860 g/cm2, with a T-score of 0.1. Procedure Note Tacos Luque MD - 05/29/2013 DEXA SCAN 05/28/2013 INDICATION: Postmenopausal The T-value compares the patient's bone mineral density to the peak bone mass of a healthy, 30-year-old race and sex-matched adult. According to NOF (National Osteoporosis Foundation) and the NIH (National Institution of Health) criteria, patient's with T-values between -1.0 and -2.5 are osteopenic. The patient with a T-value less than -2.5 is osteoporotic. AP digital radiograph of the lumbar spine was obtained, with bone density value measurements calculated from L1 through L4. The average bone density value of the lumbar spine is 1.266 g/cm2, with a T-score of 2.0, and a Z-score of 3.1. Bone density value of the left hip total measures 1.013 g/sq cm, with a T-score of 0.6, and a Z-score of 1.3. Measured specifically at the level of the femoral neck, the bone density value is 0.875 g/cm2, with a T-score of 0.2. Bone density value of the right hip total measures 1.020 g/sq cm, with a T-score of 0.6, and a Z-score of 1.4. Measured specifically at the level of the femoral neck, the bone density value is 0.860 g/cm2, with a T-score of 0.1. IMPRESSION: Normal bone mineral density Signed By: Tacos Luque Car Pace MD IMG DEXA ORDERABLES Final Re sult from Last 3 Months or Most Recently Relevant to Health Maintenance Insurance [employer] MEDICARE Advance Directives For more information, please contact: [phone] * Full Code (Latest Code Status on File) Date Activated Date Inactivated Comments 02/16/2015 9:26 PM 02/19/2015 5:54 PM * Full Code Date Activated Date Inactivated Comments 09/16/2009 3:29 PM 09/17/2009 8:00 PM * Full Code Date Activated Date Inactivated Comments 09/16/2009 1:29 PM 09/16/2009 3:29 PM Care Teams Apple Packing Header Relationship Specialty Start Date End Date Nedra Duckworth NP [address] [facility] [address] [place] [address] PCP - General Nurse Practitioner, Family 06/21/23 Roberta Barlow MD [address] [facility] [address] [place] [address] Family Medicine 05/21/20 Lulú Lunsford, RN Registered Nurse 09/28/20 Ev Henry MD [address] [facility] [place] [address] Interventional Cardiology 10/08/20 Bing Ho, RN [address] [place] [address] Registered Nurse 12/07/20 Philip Blair MD [address] [place] [address] Internal Medicine 01/18/22 Jerrod Chatterjee MD [address] [facility] [address] [place] [address] Otolaryngology 02/18/22 Ed Stovall MD [address] [facility] [place], [place] [address] Gastroenterology 02/20/22
--- OUTSIDE RECORDS SUMMARY | 2024-08-01 07:01 | XMS_ITS | Encounter Summary ---
Author Organization [facility] Address [address] [place] [address] Phone Care Team Providers Care Price Economist Name Role Phone Other, Physician [place] [facility] Provi susan Unavailable Reason for Referral * MRI/CAT Scan (Routine) - PA No Prior Auth Required Specialty Diagnoses / Procedures Referred By Contac t Referred To Contact Radiology Diagnoses Closed fracture of right distal radius and ulna, initial encounter Procedures CT WRIST RIGHT WO CONTRAST Cristofer Duckworth MD Phone: tel: fax: Referral ID Status Reason Start Date Expiration Date Visits Requested Visits Authorized [id number] PA No Prior Auth Required Specialty Services Required 08/02/2023 08/01/2024 1 1 Encounter Details Date Type Department Care Team (Late st Contact Info) Description 08/02/2023 Orders Only [facility] Central Scheduling [address] [place], [place] [address] Cristofer Duckworth MD [address] [place], [place] [id number] Closed fracture of right distal radius and ulna, initial encounter (Primary Dx) Social History Tobacco Use Types Packs/Day Years Used Date Smoking Tobacco: Never Assessed Food Insecurities Answer Date Recorded Worried about running out of food Not on file 08/02/2023 Food Bought Not on file 08/02/2023 Housing/Utilities Answer Date Recorded Worried about losing home Not on file 2023 Stayed outside house Not on file 08/02/2023 Unable to get utilities Not on file 08/02/19 24 Interpersonal Safety Answer Date Record ed Feel physically or emotionally unsafe where curr ently live Not on file 08/02/2023 Harm by anyone Not on file 08/02/2023 Emotionally Harmed Not on file 08/02/2023 Transportation Answer Date Recorded Worried about transportation Not on file Utilities Answer Date Recorded Worried about losing home Not on file 2023 Stayed outside house Not on file 08/02/2023 Unable to get utilities Not on file 08/02/19 24 Comments Unknown Sex and Gender Information Value Date Recorded Sex Assigned at Not on file Legal Sex Female 7:11 PM EDT Gender Identity Not on file Sexual Orientation Not on file documented as of this encounter Plan of Treatment Not on file documented as of this encounter Results * CT WRIST RIGHT WO CONTRAST (08/14/2023 11:22 AM EDT) Anatomical Region Laterality Modality Wrist Right Computed Tomogra phy 08/14/2023 12:1 7 PM EDT Impressions 08/14/2023 12:20 PM EDT Nondisplaced fracture of the radial styloid without joint incongruity. 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 No incontinuity at the joint surface. 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 No large fluid collection or mass OTHER: None Procedure Note Fortino Lindquist MD - 08/14/2023 HISTORY: Closed fracture of right distal radius and ulna Unspecifiedfracture of the lower end of right radius, initial encounter for closedfracture;Unspecified fracture of lower end of right ulna, initialencounter for closed fracture COMPARISON: None TECHNIQUE: Multiplanar CT images of the wrist NOTE: If there are questions about the content of this report, pleasecontact [facility] radiology by calling [phone] FINDINGS: BONES: Acute nondisplaced fracture of the radial styloid. No incontinuityat the joint surface. 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 Thescaphoid is unremarkable no acute carpal fractures ULNAR VARIANCE: Neutral ulnar variance JOINTS: Moderate osteoarthritis is noted at the first carpal metacarpaljoint SOFT TISSUES/MUSCLES: Unremarkable. No large fluid collection or mass OTHER: None IMPRESSION Nondisplaced fracture of the radial styloid without joint incongruity. 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
--- OUTSIDE RECORDS SUMMARY | 2024-08-01 07:01 | XMS_ITS | Clinical Summary ---
Author Organization [facility] Address [address] [place] [address] [place] [address] Care Team Providers Care Programming Specialist Name Role Phone Other, Physician Jostin [facility] Primary [facility] Provi susan Unavailable Social History Tobacco Use Types Packs/Day Years [...] Orientation Not on file Plan of Treatment Health Maintenance Due Date Last Done Comments Hepatitis C Screening 1957 DTap,Tdap,and Td (1 - Tdap) 1968 Colonoscopy 2002 Pneumococcal 50+ (1 of 1 - PCV) 2007 Shingrix (#1) 2007 DEXA Scan 2022 Influenza Vaccine (Season Ended) 2024 01/01/2014, 02/21/2013, 02/03/2011, Additional history exists Mammogram Screening 06/13/2025 06/13/2024 RSV Vaccine (60+ or ) (1 - 1-dose 75+ series) 2032 HPV Aged Out No longer eligi ble based on patient's age to complete this topic Meningococcal conjugate valent 4 (MCV4) Aged Out No longer eligible based on patient's age to complete this topic RSV Immunization (<20 months) Aged Out No longer eligible based on patient's age to complete this topic Insurance & [facility] AD[facility] ADRIEN# [id number] Care Teams Programming Specialist Relationship Specialty Start Date End Date Other, Physician MD Jostin Other PCP - General Internal Medicine 08/14/23
--- OUTSIDE RECORDS SUMMARY | 2024-08-01 07:01 | XMS_ITS | Encounter Summary ---
Author Organization The Address [address] [place] [address] Care Team Providers Care Kiln Burner Name Role Phone Roberta Barlow MD Unavailable [phone] Lulú Lunsford RN Unavailable Unavailab Spencer Gallego MD Unavailable [phone] Bing Ho RN Unavailable Philip Blair MD Unavailable [phone] Jerrod Chatterjee MD Unavailable [phone] Ed Stovall MD Unavailable [phone] Nedra Duckworth NP Primary Care Provider [phone] Encounter Details Date Type Department Care Team (Latest Contact Info) Description 07/31/2023 Preop Surgical Orders The Physicians - Urology, [facility] [address] [facility] [address] [place] [address] Christine Stock MD [address] [place] [address] [address] [place] [address] Bladder mass (Primary Dx) Social History Tobacco Use Types [...] Description 08/06/2024 1:30 PM EDT Appointment [facility] - C-Level [address] [place] [address] documented as of this encounter Visit Diagnoses Diagnosis Bladder mass- Primary Other specified disorders of bladder documented in this encounter Additional Health Concerns Assessment Noted Time PHQ-9 Depression Total Score: 1 01/20/20 10:15 AM EST documented as of this encounter Care Teams Kiln Burner Relationship Specialty Start Date End Date Nedra Duckworth NP [address] [place] [address] PCP - General Nurse Practitioner, Family 06/21/23 Roberta Barlow MD [address] [place] [address] Family Medicine 05/21/20 Lulú Lunsford, RN Registered Nurse 09/28/20 Spencer Henry MD [address] [place] [address] Interventional Cardiology 10/08/20 Bing Ho, BELLA [address] [place] [address] Registered Nurse 12/07/20 Philip Blair MD [address] [place] [address] Internal Medicine 01/18/22 Jerrod Chatterjee MD [address] [address] Otolaryngology 02/18/22 Ed Stovall MD [address] [facility] [place], [place] [address] Gastroenterology 02/20/22 documented as of this encounter
--- OUTSIDE RECORDS SUMMARY | 2024-08-01 07:01 | XMS_ITS | Encounter Summary ---
Author Organization The [facility] Address [address] [place] [address] Care Team Providers Care Furnishings Conservator Name Role Phone Roberta Barlow MD Unavailable [phone] Lulú Lunsford RN Unavailable Unavailab Spencer Gallego MD Unavailable [phone] Bing Ho RN Unavailable Philip Blair MD Unavailable [phone] Jerrod Chatterjee MD Unavailable [phone] Ed Stovall MD Unavailable [phone] Nedra Duckworth NP Primary Care Provider [phone] Reason for Visit * Reason Onset Date Comments Referral 06/12/2024 Encounter Details Date Type Department Care Team (Late st Contact Info) Description 06/12/2024 Telephone [facility] Physicians - [facility] Screening [facility] [address] [facility] [place] [address] Ana Whitney, RN [address] [place] [address] Referral Social History Tobacco Use Types Packs/Day Years [...] Lyle Dominguez RN documented in this encounter Miscellaneous Notes * Telephone Encounter - Ana Whitney RN - 06/12/2024 4:44 PM EDT [employer] Nurse Navigator Update: Date of Call: 06/12/24 Aracelis Palmer is a 69 y.o. female who completed SHONA questionnaire prior to mammography or a genetic counseling/oncology visit. This note is a review of those results as patients may or may not qualify for additional evaluation based upon their answers to this health questionnaire. High Risk Assessment: Patient does not meet Tyrer Cuzick score for High Risk referral Genetic Risk Assessment: Patient does not meet NCCN or ASBRS criteria for a genetics referral. documented in this encounter Plan of Treatment Upcoming Encounters Date Type Department Care Team (Late st Contact Info) Description 08/06/2024 1:30 PM EDT Appointment [facility] [place] [facility] - C-Level [address] [place] [address] documented as of this encounter Visit Diagnoses Not on filedocumented in this encounter Additional Health Concerns Assessment Noted Time PHQ-9 Depression Total Score: 1 01/20/20 23 10:15 AM EST documented as of this encounter Care Teams Furnishings Conservator Relationship Specialty Start Date End Date Nedra Duckworth NP [address] [facility] [address] [place] [address] PCP - General Nurse Practitioner, Family 06/21/23 Roberta Barlow MD [address] [facility] [address] [place] [address] Family Medicine 05/21/20 Lulú Lunsford, BELLA Registered Nurse 09/28/20 Spencer Henry MD [address] [facility] [place] [address] Interventional Cardiology 10/08/20 Bing Ho, BELLA [address] [place] [address] Registered Nurse 12/07/20 Philip Blair MD [address] [facility] [address] [place] [address] Internal Medicine 01/18/22 Jerrod Chatterjee MD [address] [address] Otolaryngology 02/18/22 dE Stovall MD [address] [place] [address] Gastroenterology 02/20/22 documented as of this encounter
--- OUTSIDE RECORDS SUMMARY | 2024-08-01 07:01 | XMS_ITS | Encounter Summary ---
Author Organization The [facility] Address [address] [place] [address] Care Team Providers Care Wrestling Coach Name Role Phone Roberta Barlow MD Unavailable [phone] Lulú Lunsford RN Unavailable Unavailab Spencer Gallego MD Unavailable [phone] Bing Ho RN Unavailable Philip Blair MD Unavailable [phone] Jerrod Chatterjee MD Unavailable [phone] Ed Stovall MD Unavailable [phone] Nedra Duckworth NP Primary Care Provider [phone] Encounter Details Date Type Department Care Team (Late st Contact Info) Description 06/13/2024 Results Follow-Up The [facility] Physicians - Primary Care, [facility] [address] [facility] [address] [place] [address] Nedra Duckworth NP [address] [facility] [address] [place] [address] MAMM-SCREENING W/BIBI Social History Tobacco Use Types Packs/Day Years [...] Description 08/06/2024 1:30 PM EDT Appointment [facility] [place] [facility] - C-Level [address] [place] [address] documented as of this encounter Visit Diagnoses Not on filedocumented in this encounter Additional Health Concerns Assessment Noted Time PHQ-9 Depression Total Score: 1 01/20/20 23 10:15 AM EST documented as of this encounter Care Teams Wrestling Coach Relationship Specialty Start Date End Date Nedra Duckworth NP [address] [place] [address] PCP - General Nurse Practitioner, Family 06/21/23 Roberta Barlow MD [address] [facility] [address] [place] [address] Family Medicine 05/21/20 Lulú Lunsford, RN Registered Nurse 09/28/20 Spencer Henry MD [address] [facility] [place] [address] Interventional Cardiology 10/08/20 Bing Ho, BELLA [address] [facility] [place] [address] Registered Nurse 12/07/20 Philip Blair MD [address] [place] [address] Internal Medicine 01/18/22 Jerrod Chatterjee MD [address] [address] Otolaryngology 02/18/22 Ed Stovall MD [address] [facility] [place], [place] [address] Gastroenterology 02/20/22 documented as of this encounter
--- OUTSIDE RECORDS SUMMARY | 2024-08-01 07:01 | XMS_ITS | Encounter Summary ---
Author Organization The [facility] Address [address] [place] [address] Care Team Providers Care Instrumentation Chemist Name Role Phone Roberta Barlow MD Unavailable [phone] Lulú Lunsford RN Unavailable Unavailab Spencer Gallego MD Unavailable [phone] Bing Ho RN Unavailable Philip Blair MD Unavailable [phone] Jerrod Chatterjee MD Unavailable [phone] Ed Stovall MD Unavailable [phone] Nedra Duckworth NP Primary Care Provider [phone] Encounter Details Date Type Department Care Team (Latest Contact Info) Description 07/26/2024 Results Follow-Up [facility] Physicians - Primary Care, [facility] [address] [facility] [address] [place] [address] Nedra Duckworth NP [address] [facility] [address] [place], [place] [address] CBC WITH DIFFERENTIAL, COMPREHENSIVE METABOLIC PANEL, URINALYSIS W/ REFLEX TO MICROSCOPIC, Additional followed-up results: 5 Social History Tobacco Use Types Packs/Day Years [...] Description 08/06/2024 1:30 PM EDT Appointment [facility] [place] [facility] - C-Level [address] [facility] [place] [address] documented as of this encounter Visit Diagnoses Not on filedocumented in this encounter Additional Health Concerns Assessment Noted Time PHQ-9 Depression Total Score: 1 01/20/20 23 10:15 AM EST documented as of this encounter Care Teams Instrumentation Chemist Relationship Specialty Start Date End Date Nedra Duckworth BUSINESS CONTINUITY ANALYST [address] [place] [address] PCP - General Nurse Practitioner, Family 06/21/23 Roberta Barlow MD [address] [place] [facility] [address] [place] [address] Family Medicine 05/21/20 Lulú Lunsford, BELLA Registered Nurse 09/28/20 Spencer Henry MD [address] [place] [address] Interventional Cardiology 10/08/20 Bing Ho, BELLA [address] [place] [address] Registered Nurse 12/07/20 Philip Blair MD [address] [place] [address] Internal Medicine 01/18/22 Jerrod Chatterjee MD [address] [address] Otolaryngology 02/18/22 Ed Stovall MD [address] [place] [address] Gastroenterology 02/20/22 documented as of this encounter
--- OUTSIDE RECORDS SUMMARY | 2024-08-01 07:01 | XMS_ITS | Encounter Summary ---
Author Organization [facility] Address [address] [place] [address] Care Team Providers Care Pattern Lease Inspector Name Role Phone Roberta Barlow MD Unavailable [phone] Lulú Lunsford RN Unavailable Unavailab Spencer Glalego MD Unavailable [phone] Bing Ho RN Unavailable Philip Blair MD Unavailable [phone] Jerrod Chatterjee MD Unavailable [phone] Ed Stovall MD Unavailable [phone] Nedra Duckworth NP Primary Care Provider [phone] Encounter Details Date Type Department Care Team (Late st Contact Info) Description 06/13/2024 Orders Only [facility] [address] [facility] [place] [address] Orders, Generic Provider Social History Tobacco Use Types Packs/Day Years [...] Description 08/06/2024 1:30 PM EDT Appointment [facility] Cardiovascular Testing Center - [facility] - C-Level [address] [place] [address] documented as of this encounter Procedures Procedure Name Priority Date/Time Associated Diagnosis Comments QUESTIONNAIRE FOR HEREDITARY CANCER SHONA CHATBOT Routine 06/13/2024 documented in this encounter Results * QUESTIONNAIRE FOR HEREDITARY CANCER SHONA CHATBOT (06/13/2024) SHONA NCCN Assessment Complete INVITAE SHONA MET NCCN CRITERIA INVITAE SHONA MET SUJATHA PERRY CRITERIA does_not_ meet_crit eria INVITAE [facility] SHONA Tyrjessica Cardenasck Score 4.9 INVITAE SHONA ASBRS Assessment Complete does_not_ meet_crit cynthia NAGEL MET ASBRS CRITERIA INVJOSH NAGEL PATIENT REQUESTING TESTING INVJOSH Comment: This result is based on a questionnaire completed prior to a recent visit at [facility]. This result is based on self-reported information [...] of cancer * ASBrS stands for the [employer]. ASBrS criteria recommends [...] criteria based on this self-reported information. The [facility] Department Contact is [phone]. 06/13/2024 us Generic Provider Orders INVITAE LABS Final Re sult INVITAE documented in this encounter Visit Diagnoses Not on filedocumented in this encounter Additional Health Concerns Assessment Noted Time PHQ-9 Depression Total Score: 1 01/20/20 23 10:15 AM EST documented as of this encounter Care Teams Pattern Lease Inspector Relationship Specialty Start Date End Date Nedra Duckworth NP [address] [place] [address] PCP - General Nurse Practitioner, Family 06/21/23 Roberta Barlow MD [address] [facility] [address] [place] [address] Family Medicine 05/21/20 Lulú Lunsford, BELLA Registered Nurse 09/28/20 Spencer Henry MD [address] [facility] [place] [address] Interventional Cardiology 10/08/20 Bing Ho, BELLA [address] [place] [address] Registered Nurse 12/07/20 Philip Blair MD [address] [facility] [address] [place] [address] Internal Medicine 01/18/22 Jerrod Chatterjee MD [address] [address] Otolaryngology 02/18/22 Ed Stovall MD [address] [place] [address] Gastroenterology 02/20/22 documented as of this encounter
--- OUTSIDE RECORDS SUMMARY | 2024-08-01 07:01 | XMS_ITS | Encounter Summary ---
Author Organization [facility] Address [address] [place] [address] Care Team Providers Care Properties Supervisor Name Role Phone Roberta Barlow MD Unavailable [phone] Lulú Lunsford RN Unavailable Unavailab Spencer Gallego MD Unavailable [phone] Bing Ho RN Unavailable Philip Blair MD Unavailable [phone] Jerrod Chatterjee MD Unavailable [phone] Ed Stovall MD Unavailable [phone] Nedra Duckworth NP Primary Care Provider [phone] Encounter Details Date Type Department Care Team (Late st Contact Info) Description 07/25/2024 Orders Only [facility] Physicians - Primary Care, [facility] [address] [facility] [address] [place] [address] Nedra Duckworth NP [address] [facility] [address] [place], [place] [id number] Elevated glucose (Primary Dx) Social History Tobacco Use Types [...] 08/06/2024 1:30 PM EDT Appointment [facility] Cardiovascular Testing Center - [facility] - C-Level [address] [place] [address] documented as of this encounter Visit Diagnoses Diagnosis Elevated glucose- Primary Other abnormal glucose documented in this encounter Additional Health Concerns Assessment Noted Time PHQ-9 Depression Total Score: 1 01/20/20 23 10:15 AM EST documented as of this encounter Care Teams Properties Supervisor Relationship Specialty Start Date End Date Nedra Duckworth NP [address] [place] [address] PCP - General Nurse Practitioner, Family 06/21/23 Roberta Barlow MD [address] [facility] [address] [place] [address] Family Medicine 05/21/20 Lulú Lunsford, RN Registered Nurse 09/28/20 Spencer Henry MD [address] [facility] [place] [address] Interventional Cardiology 10/08/20 Bing Ho, BELLA [address] [facility] [place] [address] Registered Nurse 12/07/20 Philip Blair MD [address] [place] [address] Internal Medicine 01/18/22 Jerrod Chatterjee MD [address] [address] Otolaryngology 02/18/22 Ed Stovall MD [address] [facility] [place], [place] [address] Gastroenterology 02/20/22 documented as of this encounter
--- OUTSIDE RECORDS SUMMARY | 2024-08-01 07:01 | XMS_ITS | Clinical Summary ---
Author Organization [facility] Address [address] [place] [address] Care Team Providers Care College Service Officer Name Role Phone Unavailable Primary Care Provider Unavailabl e Social History Tobacco Use Types Packs/Day Years Used Date Smoking Tobacco: Never Assessed Comments Unknown Sex and Gender Information Value Date Recorded Sex Assigned at Not on file Legal Sex Female 10:48 AM EDT Gender Identity Not on file Sexual Orientation Not on file Last Filed Vital Signs Vital Sign Reading Time Taken Comments Blood Pressure 147/67 07/26/2022 11:07 AM EDT Pulse - - Temperature - - Respiratory Rate - - Oxygen Saturation - - Inhaled Oxygen Concentration - - Weight 83.5 kg (184 lb) 07/26/2022 11:07 AM EDT Height 157.5 cm (5' 2 ) 07/26/2022 11:07 AM EDT Body Mass Index 33.65 07/26/2022 11:07 AM EDT Plan of Treatment Health Maintenance Due Date Last Done Comments [facility]-Bone Density Scan 1957 [facility]-Depression Screening 1957 [facility]-Infant/Child/Adol SDOH Screenings 1957 [facility]Y- SDOH Screenings 1975 [facility]Y-Adult SDOH Screenings 1975 [facility]Y-DTaP,Tdap,and Td Vaccines (1 - Tdap) 1976 CT Colonography 2002 Colonoscopy 2002 FIT-DNA 2002 FIT 2002 FOBT 2002 Sigmoidoscopy 2002 [facility]-Colorectal Cancer Screening 2002 [facility]-Pneumococcal Vaccine: 50+ Years (1 of 1 - PCV) 2007 [facility]Y-Zoster Vaccines (1 of 2) 2007 [id number] Vaccine (5 - 2024-25 season) 2023 11/17/2021, 12/11/2020, 06/04/2020, Additional history exists [facility]Y-Influenza Vaccine (Season Ended) 2024 11/17/2021 [facility]Y-RSV Vaccine: 60+ Years or (1 - 1-dose 75+ series) 2032 HPV Vaccines Aged Out No longer eligi ble based on patient's age to complete this topic UKY-HIB Vaccines Aged Out No longer e ligible based on patient's age to complete this topic UKY-Hepatitis A Vaccines Aged Out No longer eligible based on patient's age to complete this topic UKY-IPV Vaccines Aged Out No longer e ligible based on patient's age to complete this topic UKY-Rotavirus Vaccines Aged Out No lo nger eligible based on patient's age to complete this topic [place] [address]
--- OUTSIDE RECORDS SUMMARY | 2024-08-01 07:01 | XMS_ITS | Referral Summary ---
Author Organization [facility] Address [address] [place] [address] [place] [address] Care Team Providers Care Washer Meat Name Role Phone Other, Physician Jostin MILLARD [...] Plan of Treatment Not on file Insurance & [facility] [employer] ADRIEN# [id number] Care Teams Washer Meat Relationship Specialty Start Date End Date Other, Physician MD Jostin Other PCP - General Internal Medicine 08/14/23
--- OUTSIDE RECORDS SUMMARY | 2024-08-01 07:01 | XMS_ITS | Encounter Summary ---
Author Organization [facility] Address [address] [place] [address] Care Team Providers Care Rehabilitation Aide/Scheduler Name Role Phone Roberta Barlow MD Unavailable [phone] Lulú Lunsford RN Unavailable Unavailab Spencer Gallego MD Unavailable Bing Ho RN Unavailable Philip Blair MD Unavailable [phone] Jerrod Chatterjee MD Unavailable [phone] Ed Stovall MD Unavailable [phone] Nedra Duckworth NP Primary Care Provider [phone] Reason for Visit * Reason Comments Medications Refill Encounter Details Date Type Department Care Team (Late st Contact Info) Description 05/29/2024 Refill [facility] Physicians - Primary Care, [facility] [address] [facility] [address] [place] [address] [place] [address] [place] [address] [address] [place] [address] Medications Refill Social History Tobacco Use Types Packs/Day Years [...] Campus) Cardiovascular Testing Center - [facility] - C-Level [address] [place] [address] documented as of this encounter Visit Diagnoses Not on filedocumented in this encounter Additional Health Concerns Assessment Noted Time PHQ-9 Depression Total Score: 1 01/20/20 23 10:15 AM EST documented as of this encounter Care Teams Rehabilitation Aide/Scheduler Relationship Specialty Start Date End Date Nedra Duckworth NP [address] [place] [address] PCP - General Nurse Practitioner, Family 06/21/23 Roberta Barlow MD [address] [facility] [address] [place] [address] Family Medicine 05/21/20 Lulú Lunsford, RN Registered Nurse 09/28/20 Spencer Henry MD [address] [place] [address] Interventional Cardiology 10/08/20 Bing Ho, BELLA [address] [facility] [place] [address] Registered Nurse 12/07/20 Philip Blair MD [address] [place] [address] Internal Medicine 01/18/22 Jerrod Chatterjee MD [address] [address] Otolaryngology 02/18/22 Ed Stovall MD [address] [facility] [place], [place] [address] Gastroenterology 02/20/22 documented as of this encounter
--- OUTSIDE RECORDS SUMMARY | 2024-08-01 07:02 | XMS_ITS | Encounter Summary ---
Author Organization [facility] Address [address] [place] [address] Care Team Providers Care Food Porter Name Role Phone Philip Gaston MD Primary Care Provider + Tacos Ortiz MD Primary Care Provider [phone] Roberta Barlow MD Unavailable [phone] Lulú Lunsford RN Unavailable Unavailab Spencer Gallego MD Unavailable [phone] Bing Ho RN Unavailable Philip Blair MD Unavailable [phone] Jerrod Chatterjee MD Unavailable [phone] Ed Stovall MD Unavailable [phone] Nedra Duckworth NP Primary Care Provider [phone] Reason for Visit * Reason Comments Medications Refill Encounter Details Date Type Department Care Team (Late st Contact Info) Description 11/27/2017 Refill [facility] [address] [place] [address] Rosendo Palma MD [address] [place], [place] [address] Medications Refill Social History Tobacco Use Types Packs/Day Years Used Date Smoking Tobacco: Former Cigarettes 0 02/14/1980 - 02/14/1984 Smokeless Tobacco: Never Comments:1989 Alcohol Use Standard Drinks/Week Comments Yes 0 (1 standard drink = 0.6 oz pur e alcohol) 1x month-occ Comments No Sex and Gender Information Value [...] Description 08/06/2024 1:30 PM EDT Appointment [facility] Cardiovascular Testing [facility] - [facility] - C-Level [address] [place] [address] documented as of this encounter Visit Diagnoses Not on filedocumented in this encounter Care Teams Food Porter Relationship Specialty Start Date End Date Philip Gaston MD [address] [place] [address] [place] [address] PCP - General Internal Medicine 12/02/14 03/30/20 Tacos Ortiz MD [address] [facility] [place] [address] PCP - General Internal Medicine 03/31/20 06/20/23 Nedra Duckworth NP [address] [facility] [address] [place] [address] PCP - General Nurse Practitioner, Family 06/21/23 Roberta Barlow MD [address] [facility] [address] [place] [address] Family Medicine 05/21/20 Lulú Lunsford, BELLA Registered Nurse 09/28/20 Spencer Henry MD [address] [facility] [place], [place] [address] Interventional Cardiology 10/08/20 Bing Ho, BELLA [address] [place] [address] Registered Nurse 12/07/20 Philip Blair MD [address] [facility] [address] [place] [address] Internal Medicine 01/18/22 Jerrod Chatterjee MD [address] [address] Otolaryngology 02/18/22 Ed Stovall MD [address] [place] [address] Gastroenterology 02/20/22 documented as of this encounter
--- OUTSIDE RECORDS SUMMARY | 2024-08-01 07:02 | XMS_ITS | Encounter Summary ---
Author Organization [facility] Address [address] [place] [address] Care Team Providers Care Graduate Advisor Name Role Phone Roberta Barlow MD Unavailable [phone] Lulú Lunsford RN Unavailable Unavailab Spencer Gallego MD Unavailable [phone] Bing Ho RN Unavailable Philip Blair MD Unavailable [phone] Jerrod Chatterjee MD Unavailable [phone] Ed Stovall MD Unavailable [phone] Nedra Duckworth NP Primary Care Provider [phone] Encounter Details Date Type Department Care Team (Late st Contact Info) Description 06/14/2024 Results Follow-Up [facility] Physicians - Primary Care, [facility] [address] [facility] [address] [place] [address] Nedra Duckworth NP [address] [facility] [address] [place], [place] [id number] [id number] 2 OR 3-VIEWS Social History Tobacco Use Types Packs/Day Years [...] Description 08/06/2024 1:30 PM EDT Appointment [facility] Cardiovascular Testing Center - [facility] - C-Level [address] [place] [address] documented as of this encounter Visit Diagnoses Not on filedocumented in this encounter Additional Health Concerns Assessment Noted Time PHQ-9 Depression Total Score: 1 01/20/20 23 10:15 AM EST documented as of this encounter Care Teams Graduate Advisor Relationship Specialty Start Date End Date Nedra Duckworth NP [address] [place] [address] PCP - General Nurse Practitioner, Family 06/21/23 Roberta Barlow MD [address] [place] [address] Family Medicine 05/21/20 uLlú Lunsford, RN Registered Nurse 09/28/20 Spencer Henry MD [address] [place] [address] Interventional Cardiology 10/08/20 Bing Ho, BELLA [address] [place] [address] Registered Nurse 12/07/20 Philip Blair MD [address] [place] [address] Internal Medicine 01/18/22 Jerrod Chatterjee MD [address] [address] Otolaryngology 02/18/22 Ed Stovall MD [address] [facility] [place], [place] [address] Gastroenterology 02/20/22 documented as of this encounter
--- OUTSIDE RECORDS SUMMARY | 2024-08-01 07:02 | XMS_ITS | Encounter Summary ---
Author Organization [facility] Address [address] [place] [address] Care Team Providers Care Corrugator Helper Name Role Phone Roberta Barlow MD Unavailable [phone] Lulú Lunsford RN Unavailable Unavailab Spencer Gallego MD Unavailable [phone] Bing Ho RN Unavailable Philip Blair MD Unavailable Jerrod Chatterjee MD Unavailable [phone] Ed Stovall MD Unavailable [phone] Nedra Duckworth NP Primary Care Provider [phone] Reason for Referral * PT/OT/ST (Routine) - Authorized Specialty Diagnoses / Procedures Referred By Contac t Referred To Contact Physical Therapy Diagnoses Back pain of lumbar region with sciatica Nedra Duckworth NP [address] [place] [address] Phone: tel: fax: [facility], [facility] [address] [facility] [address] [place] [address] Phone: tel: fax: Referral ID Status Reason Start Date Expiration Date V isits Requested Visits Authorized [id number] Authorized 07/19/2024 07/19/2025 99 99 Encounter Details Date Type Department Care Team (Late st Contact Info) Description 07/19/2024 Orders Only [facility] Physicians - Primary Care, [facility] [address] [facility] [address] [place] [address] Nedra Duckworth NP [address] [facility] [address] [place] [address] Back pain of lumbar region with sciatica (Primary Dx) Social History Tobacco Use Types [...] of Assessment Author No 02/16/2015 9:35 PM EST Lyle Alvarez RN * Do you have serious difficulty [...] Description 08/06/2024 1:30 PM EDT Appointment [facility] Cardiovascular Testing [facility] - [facility] - C-Level [address] [place] [address] Scheduled Referrals Name Type Priority Associated Diagnoses Orde r Schedule AMB REFERRAL TO PHYSICAL THERAPY Outpatient Referral Routine Back pain of lumbar region with sciatica Ordered: 07/19/2024 documented as of this encounter Visit Diagnoses Diagnosis Back pain of lumbar region with sciatica- Primary documented in this encounter Additional Health Concerns Assessment Noted Time PHQ-9 Depression Total Score: 1 01/20/20 23 10:15 AM EST documented as of this encounter Care Teams Corrugator Helper Relationship Specialty Start Date End Date Nedra Duckworth NP [address] [facility] [address] [place] [address] PCP - General Nurse Practitioner, Family 06/21/23 Roberta Barlow MD [address] [facility] [address] [place] [address] Family Medicine 05/21/20 Lulú Lunsford, BELLA Registered Nurse 09/28/20 Spencer Henry MD [address] [facility] [place] [address] Interventional Cardiology 10/08/20 Bing Ho, BELLA [address] [place] [address] Registered Nurse 12/07/20 Philip Blair MD [address] [place] [address] Internal Medicine 01/18/22 Jerrod Chatterjee MD [address] [address] Otolaryngology 02/18/22 Ed Stovall MD [address] [facility] [place], [place] [address] Gastroenterology 02/20/22 documented as of this encounter
--- OUTSIDE RECORDS SUMMARY | 2024-08-01 07:02 | XMS_ITS | Encounter Summary ---
Author Organization [facility] Address [address] [place] [address] Care Team Providers Care Certified Low Vision Therapist Name Role Phone Roberta Barlow MD Unavailable [phone] Lulú Lunsford RN Unavailable Unavailab Spencer Gallego MD Unavailable [phone] Bing Ho RN Unavailable Philip Blair MD Unavailable [phone] Jrerod Chatterjee MD Unavailable [phone] Ed Stovall MD Unavailable [phone] Nedra Duckworth NP Primary Care Provider [phone] Encounter Details Date Type Department Care Team (Late st Contact Info) Description 07/21/2024 Orders Only [facility] - Primary Care, [facility] [address] [facility] [address] [place] [address] Nedra Duckworth NP [address] [facility] [address] [place], [place] [id number] Fatigue, unspecified type (Primary Dx); Coronary artery disease involving [place] coronary artery of [place] heart without angina pectoris; Vitamin D deficiency Social History Tobacco Use Types Packs/Day Years [...] Description 08/06/2024 1:30 PM EDT Appointment [facility] Cardiovascular Testing [facility] - [facility] - C-Level [address] [place] [id number] documented as of this encounter Results * VITAMIN D 25 HYDROXY TOTAL (07/23/2024 10:41 AM EDT) Vit D, 25-Hydroxy 45 30 - 80 ng/mL [facility] Comment: Therapy is based on measurement of Total 25-OHD, with levels <20 ng/mL indicative of Vitamin D deficiency, while levels between 20 ng/mL and 30 ng/mL suggest insufficiency. Sufficient levels are >or = 30 ng/mL. Serum 07/23/2024 10:4 1 AM EDT 07/23/2024 1:23 PM EDT Nedra Duckworth DATA PROCESSING SPECIALIST CHEMISTRY ORDERABLES Final Resu lt Performing Organization Address [facility] de Phone Number [facility] [address] * TSH 3RD GEN, REFLEX FT4 (07/23/2024 10:41 AM EDT) TSH REFLEX 3.25 0.35 - 4.94 uIU/mL [facility] Serum (Serum) 07/23/2024 10: 41 AM EDT 07/23/2024 1:23 PM EDT Nedra Duckworth DATA PROCESSING SPECIALIST CHEMISTRY ORDERABLES Final Resu lt Performing Organization Address [facility] de Phone Number [facility] [address] * (ABNORMAL) LIPID PROFILE (07/23/2024 10:41 [...] NONHDL Calculated 96 0 - 129 mg/dL [facility] Comment: NON-HDL INTERPRETATION: Less than 130 mg/dL Desirable 130-159 mg/dL Above Desirable 160-189 mg/dL Borderline High 190-219 mg/dL High Greater than or equal to 220 mg/dL Very High Serum (Serum) 07/23/2024 10: 41 AM EDT 07/23/2024 1:23 PM EDT Nedra Duckworth NP CHEMISTRY ORDERABLES Final Resu lt [facility] [address] * (ABNORMAL) URINALYSIS W/ REFLEX TO [...] EXTERNAL LAB Blood, UA Negative Negative [facility] pH, Urine 6.0 5.0 - 8.0 [facility] Protein, UA Negative Negative mg/dL [facility] Urobilinogen, UA <2.0 <2.0 mg/dL [facility] Nitrite, UA Negative Negative [facility] Leukocyte esterase UA Small(A) Negative [facility] RBC, UA <1 /HPF 0 - 3 /HPF [facility] WBC 6(H) 0 - 5 /HPF [facility] Squam Epithel, UA 1 0 - 5 /HPF [facility] Urine 07/23/2024 10:4 1 AM EDT 07/23/2024 1:30 PM EDT us Nedra L. Foad DATA PROCESSING SPECIALIST URINE ORDERABLES Final Result [facility] [address] [place] [address], [facility] * (ABNORMAL) COMPREHENSIVE METABOLIC PANEL (07/23/2024 10:41 [...] value. BUN 15 7 - 25 mg/dL [facility] Creatinine 0.86 0.50 - 1.20 mg/dL [facility] Glucose 110(H) 71 - 99 mg/dL [facility] Comment:Reference range (71- 99 mg/dL) [...] 07/23/2024 1:23 PM EDT us Nedra Duckworth DATA PROCESSING SPECIALIST CHEMISTRY ORDERABLES Final Resu lt Performing Organization Address City/[facility]/ZIP Co de Phone Number [facility] [address] * CBC WITH DIFFERENTIAL (07/23/2024 10:41 AM EDT) WBC 8.71 4.00 - 12.00 10*3/uL [facility] RBC 4.65 3.80 - 5.10 10*6/uL [facility] Hemoglobin 13.8 11.7 - 15.5 g/dL [facility] Hematocrit Blood 44.1 35.0 - 46.0 % [facility] MCV 94.8 80.0 - 100.0 fL [facility] MCH 29.7 27.0 - 33.0 pg [facility] MCHC 31.3 30.0 - 36.0 g/dL [facility] RDW 12.6 11.0 - 15.0 % [facility] Platelets 324 140 - 400 10*3/uL [facility] MPV 9.9 9.0 - 13.0 fL [facility] Whole Blood 07/23/2024 10:4 1 AM EDT 07/23/2024 1:30 PM EDT us Nedra Duckworth DATA PROCESSING SPECIALIST HEMATOLOGY ORDERABLES Final Res ult Performing Organization Address [facility] Co de Phone Number [facility] [address] documented in this encounter Visit Diagnoses Diagnosis Fatigue, unspecified type- Primary Coronary artery disease involving [place] coronary artery of [place] heart without angina pectoris Vitamin D deficiency documented in this encounter Additional Health Concerns Assessment Noted Time PHQ-9 Depression Total Score: 1 01/20/20 23 10:15 AM EST documented as of this encounter Care Teams Certified Low Vision Therapist Relationship Specialty Start Date End Date Nedra Duckworth NP [address] [facility] [address] [place] [address] PCP - General Nurse Practitioner, Family 06/21/23 Roberta Barlow MD [address] [facility] [address] [place] [address] Family Medicine 05/21/20 Lulú Lunsford, RN Registered Nurse 09/28/20 Spencer Henry MD [address] [facility] [place] [address] Interventional Cardiology 10/08/20 Bing Ho, BELLA [address] [place] [address] Registered Nurse 12/07/20 Philip Blair MD [address] [facility] [address] [place] [address] Internal Medicine 01/18/22 Jerrod Chatterjee MD [address] [address] Otolaryngology 02/18/22 Ed Stovall MD [address] [facility] [place], [place] [id number] Gastroenterology 02/20/22 documented as of this encounter
--- OUTSIDE RECORDS SUMMARY | 2024-08-01 07:03 | XMS_ITS | Clinical Summary ---
Author Organization [facility] Address [address] [place] [address] Phone Care Team Providers Care Spd Manager Name Role Phone Tacos Ortiz MD Primary Care Provider [phone] Allergies Active Allergy Reactions Criticality Noted Date Comments Adhesive Hives Medium 04/16/2017 Septra I.V. Hives,Itching Medium Hymenoptera Allergenic Extract Other (See Comments) 08/03/2009 . Iodine Other (See Comments) Medium 08/05/2009 (Ioban) Blisters skin Mold Other (See Comments) Low 01/19/2016 I get real stuffy Sulfa (Sulfonamide Antibiotics) Swelling Medium Unable To Assess Swelling,Other (See Comments) Medium vicral suture, skin peeled Medications OMEGA-3 FATTY ACIDS (FISH OIL CONCENTRATE ORAL) Take 600 mg by mouth. Take 3 daily Active CYANOCOBALAMIN, VITAMIN B-12, (VITAMIN B-12 ORAL) Take 2,500 mcg by mouth. Take 2 daily Active aspirin 81 mg tablet Take 81 mg by mouth daily. Active lisinopriL (PRINIVIL;ZESTRI L) 5 mg Oral Tablet 04/08/2020 Active terconazole (TERAZOL 3) 0.8 % Vagl Cream 05/21/2020 Active dilTIAZem 180 mg Oral Capsule, Sust. Release 24 hr 04/07/2021 Active fUROsemide (LASIX) 20 mg Oral Tablet 03/17/2021 Active rosuvastatin (CRESTOR) 20 mg Oral Tablet 06/22/2022 Active lidocaine (LIDODERM) 5 % Top Adhesive Patch, MedicatedIndicat ions:Acute right-sided thoracic back pain Place 1 Patch onto the skin every 12 hours. 10 Patch 10/26/2022 Active naproxen (NAPROSYN) 500 mg Oral TabletIndication s:Acute right-sided thoracic back pain Take 1 Tablet by mouth 2 times daily (with meals). 60 Tablet 2 10/26/2022 Active methocarbamoL (ROBAXIN) 500 mg Oral TabletIndication s:Acute right-sided thoracic back pain Take 1 Tablet by mouth 4 times daily as needed for Muscle spasms. 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 She does not have dry eye symptoms otherwise. Recommended using systane/refresh drops daily or consider drops prior to reading to help improve length of time able to read comfortably. Assessment & Plan (08/26/2021 2:56 PM EDT): Pt's symptoms have improved since last exam but does still have dry eye symptoms via discomfort but also variable vision. Advised use of increase in frequency of systane drops. Discussion about options for restasis/xiidra or punctal plugs to help provider further relief. Pt okay with systane drops for now but will call if symptoms are not improving. Secondary cataract of both eyes 08/26/2021 Assessment & Plan (08/31/2023 2:26 PM EDT): Mild PCO OD/moderate PCO OS- some reduction in vision with glare testing but based no patient symptoms, YAG does not seem necessary at this time. Patient educated about PCO and advised of symptoms to monitor. Continue to monitor, glare testing at next exam. Assessment & Plan (08/26/2021 2:54 PM EDT): Mild PCO OU but more peripheral. Pt reports glare improvement with cataract sx but recently has noticing this symptom getting worse. Recommended glare testing at next exam Pseudophakia 07/29/2021 Assessment & Plan (08/26/2021 2:54 PM EDT): MFIOL OU in 2018 Pt happy with distance/near vision. She has very minimal near work but does have +1.00 reader if needed. Continue to monitor Assessment & Plan (07/29/2021 10:19 AM EDT): MFIOL OU in 2018, does not report any eye exams since then. Recommended RTC in 2-3 weeks for comprehensive exam. Pt may want spectacle Rx. 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 Colon in [place] and had a second opinion at the [facility]. There was no evidence of multiple sclerosis or any other demyelinating process. After this extensive neurology evaluation, it was felt that her paresthesias, hyperreflexia, and slight ataxia related to previous cervical cord compression prior to her neck surgery. 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 She has ahd excellent results, but does develope muscle soreness with Statins.. 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 ICD-10 Transition Resolved Problems Problem Noted Date Diagnosed Date Resolved Date Acute conjunctivitis of left eye 07/29/2021 08/26/2021 Assessment & Plan (07/29/2021 10:20 AM EDT): Unknown cause of pt symptoms but seem dry eye/allergy related today. No FB seen- pt best able to describe sensation as heavy that is much worse toward end of the day when tired. Denies itchy symptoms. Initial pain was likely due to small corneal abrasion but no evidence of residual issues on exam. Recommended starting pred QID OS for 7 days, sample of systane complete given. RTC 2-3 weeks for comprehensive exam. Hyperlipidemia 05/04/2021 10/26/2022 Overview (05/04/2021): patient has been treated with statin therapy 2004. She has ahd excellent results, but does develope muscle soreness with Statins.. Rash 04/27/2017 10/26/2022 S/P appendectomy 04/27/2017 10/26/2022 Essential hypertension, benign 08/05/2010 10/26/2022 Disease of spinal cord 12/24/200910/26 Overview (05/04/2021): ICD-10 Transition Cerebral artery occlusion wi th cerebral infarction 08/13/2009 10/26/2022 Overview (05/04/2021): ICD-10 Transition Benign neoplasm of colon 08/11/200806/2017 Other diseases of lung, not elsewhere classified 08/11/2008 10/26/2022 Overview (05/04/2021): noncalcified History of colonic polyps 09/14/2007 Overview (04/17/2017): Overview: patient had a screening colonoscopy in September of 2007 which revealed one hyperplastic descending colon polyp. She also had a colonoscopy in December 2010 for a change in bowel habits. This was performed by Dr. Calvert and revealed no polyps. Replaced inactive diagnosis via diagnosis import History of colonic polyps 09/14/2007 Overview (05/04/2021): patient had a screening colonoscopy in September of 2007 which revealed one hyperplastic descending colon polyp. She also had a colonoscopy in December 2010 for a change in bowel habits. This was performed by Dr. Calvert and revealed no polyps. Replaced inactive diagnosis via diagnosis import Acute appendicitis with localized peritonitis 10/26/2022 Surgical History Surgery Date Site/Laterality Comments URETHRA SURGERY 02/13/2005 - 02/12/2006 banded CERVICAL DISC SURGERY 02/14/2008 - 02/12/2009 with fusion HYSTERECTOMY 02/13/2009 - 02/12/2010 BREAST LUMPECTOMY 02/13/2003 - 02/13/2004 right breast , 10:00 LAPAROSCOPIC APPENDECTOMY 04/17/2017 Abdomen/N/A LAPAROSCOPIC APPENDECTOMY; Surgeon: Serge Zacarias MD; Location: [facility] MAIN OR; Service: General APPENDECTOMY Medical History Medical History Date Comments Hypertension Headache(784.0) Hyperlipidemia Heartburn Bladder problem urethral sling Acute appendicitis with loca lized peritonitis History of colonic polyps 09/14/2007 Overvi ew: patient had a screening colonoscopy in September of 2007 which revealed one hyperplastic descending colon polyp. She also had a colonoscopy in December 2010 for a change in bowel habits. This was performed by Dr. Calvert and revealed no polyps. Replaced inactive diagnosis via diagnosis import Family History Medical History Relation Name Comments Heart Attack Brother 1 Philip stent x 2 Heart Disease Brother 2 Lawrence 4 bipasses Heart Attack Father OR at age 51 Coronary Art Dis Mother Heart Disease Mother 3 coratid surg eries, 7 heart blocked arteries Blindness Neg Hx Diabetes Neg Hx Glaucoma Neg Hx Macular Degen Neg Hx Retinal Detachment Neg Hx Relation Name Status Comments Brother 1 Philip Alive Brother 2 Lawrence Alive Father Maternal Grandfather Maternal Grandmother Mother Paternal Grandfather Paternal Grandmother Social History Tobacco Use Types Packs/Day Years Used Date Smoking Tobacco: Former Cigarettes 0 04/17/1975 - 07/18/1991 Smokeless Tobacco: Never Tobacco Cessation:Counseling Given: Not Answered Alcohol Use Standard Drinks/Week Comments No 0 (1 standard drink = 0.6 oz pur e alcohol) occ Comments No Sex and Gender Information Value Date Recorded Sex Assigned at Not on file Legal Sex Female 2:01 AM EDT Gender Identity Not on file Sexual Orientation Not on file Obstetrics History Last Filed Vital Signs Vital Sign Reading Time Taken Comments Blood Pressure 130/80 11/03/2022 10:43 AM EDT Pulse 66 11/03/2022 10:43 AM EDT Temperature 37.1 C (98.7 F) 11/03/2022 10:43 AM EDT Respiratory Rate 16 11/03/2022 10:43 AM EDT Oxygen Saturation 98% 11/03/2022 10:43 AM EDT Inhaled Oxygen Concentration - - Weight 81.7 kg (180 lb 3.2 oz) 11/03/2022 10:43 AM EDT Height 157.5 cm (5' 2 ) 11/03/2022 10:43 AM EDT Body Mass Index 32.96 11/03/2022 10:43 AM EDT Plan of Treatment Health Maintenance Due Date Last Done Comments Wellness Exam Medicare 1958 Hepatitis C Screening 1975 DTaP/TDaP/Td (1 - Tdap) 1976 Breast Cancer Screening 1997 Cologuard 2002 Colon Cancer Screening 2002 Colonoscopy 2002 FIT 2002 Sigmoidoscopy 2002 Virtual Colonography 2002 Pneumococcal Vaccine 50+ (1 of 1 - PCV) 2007 Zoster (1 of 2) 2007 RSV or 60+ (1 - Risk 60-74 years 1-dose series) 2017 Bone Density Screening 2022 COVID-19 Vaccine ( season) 2023 11/17/2021, 12/11/2020, 06/04/2020, Additional history exists Influenza Vaccine (Season Ended) 2024 Hepatitis B Vaccine Aged Out No longe r eligible based on patient's age to complete this topic Meningococcal B Vaccine Aged Out No l onger eligible based on patient's age to complete this topic Insurance MEDICARE PPO MR MEDICARE PPO MR Advance Directives For more information, please contact: [phone] * Full Code (Latest Code Status on File) Date Activated Date Inactivated Comments 04/27/2017 3:03 PM 04/29/2017 3:39 PM * Full Code Date Activated Date Inactivated Comments 04/27/2017 3:03 PM 04/27/2017 3:03 PM * Full Code Date Activated Date Inactivated Comments 04/16/2017 9:50 PM 04/18/2017 6:10 PM Care Teams Spd Manager Relationship Specialty Start Date End Date Tacos Ortiz MD [address] [place] [address] PCP - General Internal Medicine 07/29/21
--- NOTE | 2024-08-01 07:30 | NM_ITS ---
APPROVED REPORT Exam: Nuclear Stress Test Indication: cad, 4 stents, hypertension, hyperlipidemia, fm hx, sob, fatigue Patient Location: Outpatient Stress Tech: Rehana Garrett PA Tech:Scarlett Rosen, ARRT RT(R)(N) Ht: 5 ft 2 in Wt: 183 lbs Bra Size: 44d HR: 61 bpm BP: 168/82 mmHg BSA: 1.84 m2 TID: 1.22 BMI: 33.4 History: cad, 4 stents, hypertension, hyperlipidemia, fm hx, sob, fatigue Procedure: Patient exercised on Aris protocol 6:45 minutes and sec, resting heart rate 61 bpm, resting blood pressure 168/82 mmHg, with exercise maximum heart rate achived was 137 bpm which is 89 % of the maximum predicted heart rate and blood pressure was 198/80 mmHg. Test was stopped due to fatigue. Patient denied any complaint of chest pain. Patient has exercise capacity, achieved 8.3 METs of workload on treadmill, the blood pressure response to exercise was . Cardiac Stress and Resting SPECT Images: Cardiac Stress and Resting SPECT images were obtained using technetium 99m Myoview 31.8 mCi stress and 10.98 mCi at rest. Resting and stress imaging in supine and prone positions demonstrate no evidence of fixed or reversible perfusion defects. There is increase in transient ischemic dilatation ratio (TID 1.22), which may be suggestive of possible multivessel disease or balanced ischemia. Gated imaging demonstrates normal global and regional LV systolic function. LVEF is calculated at 73%. Conclusion: No evidence of fixed or reversible perfusion defects. There is increase in transient ischemic dilatation ratio (TID 1.22), which may be suggestive of possible multivessel disease or balanced ischemia. Gated imaging demonstrates normal global and regional LV systolic function. LVEF is calculated at 73%. Electronically signed by : Anel Hale MD 08/01/2024 13:31:02
[2024-08-01] MEDS: ISOTOPE MYOVIEW (PER STUDY) 1 DOSE IV (09:55)
[2024-08-01] MEDS: SODIUM CHLORIDE 0.9% 10ML SYR (RAD ONLY) 10 ML IV ×2 (09:55)
== END 2024-08-01 23:59 | disposition home or self-care (01) ==
LOC: RAD 06:58
PROVIDERS: PCP Nurse Practitioner Family; Visit Provider Physician Assistant
DX: R94.39 Abnormal result of other cardiovascular function study (principal); I25.119 Atherosclerotic heart disease of native coronary artery with unspecified angina pectoris; I10 Essential (primary) hypertension; E78.5 Hyperlipidemia, unspecified; Z95.818 Presence of other cardiac implants and grafts
CPT/HCPCS: 78452; 93017; 93018; A9502

== ENCOUNTER 2024-08-13 08:12 | Day surgery (SDC) | payer MEDICARE, SELFPAY ==
[2024-08-13] VITALS (12 sets, daily range): BP systolic 110–164; BP diastolic 43–75; PULSE 51–66; RESP 18–20; O2SAT 93–97; BMI 33.5
--- NOTE | 2024-08-13 07:03 | IR_ITS ---
APPROVED REPORT Patient Location: Outpatient Manager Transport: MYCHAL Raza RT (R) PROCEDURES Left heart catheterization Left ventriculogram Selective coronary angiogram INDICATION Known coronary artery disease, Angina pectoris, Abnormal Myoview, Informed consent was obtained prior to the procedure. COMPLICATIONS NONE Estimated Blood Loss: LESS THAN 10 ML TECHNIQUE One percent lidocaine used to anesthetize the right anterior aspect of the wrist. The right radial artery was accessed via the Seldinger technique. A 6 Dutch sheath was placed in the right radial artery. 2.5 mg of Verapamil, 800 mcg of nitroglycerin, 1mg Lidocaine and 5000 U Heparin were given through the arterial sheath. The JL3 catheter was also used to perform left heart catheterization, left ventriculogram and selective coronary angiogram. At the end of the procedure the sheath was removed good hemostasis was achieved using Traclet band, patient was transferred to the postop holding area in stable condition. ANGIOGRAPHIC RESULTS The left main artery Has a distal 10% stenosis The left anterior descending artery Has stents in the proximal segment are widely patent free of in-stent restenosis with a 20% stenosis in the distal transition. The remaining LAD is widely patent and gives rise to a large first diagonal artery which is widely patent The circumflex artery Is nondominant has an ostial 30% stenosis with a stent in the first obtuse marginal artery which is widely patent with minimal in-stent restenosis and excellent proximal distal transitioning The right coronary artery Is dominant has a proximal 40% stenosis with a long tubular 40% mid vessel stenosis The GUERRERO ventriculogram reveals Normal 65% The left ventricular end-diastolic pressure 25 mmHg IMPRESSION Coronary disease as described above Patent stents as described Elevated LVEDP Normal ejection fraction PLAN 1. Medical management 2. Risk factor modification 3. Treatment of diastolic dysfunction Electronically signed by : Tacos Bentley MD 08/13/2024 12:44:07
[2024-08-13 08:41] LABS: Hematocrit 43.4 % (37.0-47.0); Hemoglobin 14.5 g/dL (12.2-16.2); Immature Granulocytes % 0.3 %; Mean Corpuscular HGB Conc 33.4 g/dL (31.8-35.4); Mean Corpuscular Hemoglobin 30.2 pg (27.0-31.2); Mean Corpuscular Volume 90.4 fl (81-99); Nucleated Red Blood Cells % 0 %; Platelet Count 353 K/mm3 (142-424); Red Blood Count 4.80 M/mm3 (4.20-5.40); Red Cell Distribution Width-SD 40.9 fL; White Blood Count 11.6 K/mm3 (4.8-10.8)
[2024-08-13 08:52] LABS: Blood Urea Nitrogen 19 mg/dl (7-17); Calcium 10.1 mg/dl (8.4-10.2); Carbon Dioxide 28 mmol/L (22.0-30.0); Chloride 100 mmol/L (98-107); Creatinine Clearance Estimated 72 mL/min (50-200); Creatinine,Serum 0.90 mg/dl (0.52-1.04); Estimated Glomerular Filt Rate 62 ml/min (>60); GFR (African American) 76 ML/MIN (>60); Glucose 101 mg/dl (74-100); Potassium 4.2 mmoL/L (3.5-5.1)
[2024-08-13 09:43] LABS: Anion Gap 14.2 mEq/L (5-15); Sodium 138 mmol/L (136-145)
[2024-08-13] MEDS: HEPARIN 1,000 UNITS/ML 10ML VIAL (CATH LAB) 5000 UNIT IV (09:52)
[2024-08-13] MEDS: VERAPAMIL 2.5MG/ML 2ML VIAL 2.5 MG IV (09:52)
[2024-08-13] MEDS: LIDOCAINE 1% 10ML MDV 10 ML IJ (09:52)
[2024-08-13] MEDS: 0.9 % SODIUM CHLORIDE 500 ML 25 ML IV (09:52)
[2024-08-13] MEDS: HEPARIN 1,000 UNITS/500ML NS (CATH LAB) 3000 UNIT IV (09:53)
[2024-08-13] MEDS: NITROGLYCERIN 800MCG/8ML SYR (CATH LAB) 800 MCG IA (09:53)
[2024-08-13] MEDS: MIDAZOLAM HCL 1MG/ML 5ML VIAL 1 MG IV (10:15)
[2024-08-13] MEDS: FENTANYL 100MCG/2ML VIAL 50 MCG IV (10:15)
[2024-08-13] MEDS: IOPAMIDOL-370 (76%);100ML BOTTLE 50 ML IV (11:52)
== END 2024-08-13 13:18 | disposition home or self-care (01) ==
LOC: CATHLAB 08:13
PROVIDERS: PCP Nurse Practitioner Family; Visit Provider Internal Medicine
PROC: 4A023N7 Measurement of Cardiac Sampling and Pressure, Left Heart, Percutaneous Approach (ICD-10-PCS; CPT 93452; principal; 2024-08-13 08:30)
DX: I25.118 Atherosclerotic heart disease of native coronary artery with other forms of angina pectoris (principal); I45.10 Unspecified right bundle-branch block; E78.2 Mixed hyperlipidemia; I65.22 Occlusion and stenosis of left carotid artery; E66.9 Obesity, unspecified; I10 Essential (primary) hypertension; E11.9 Type 2 diabetes mellitus without complications; Z88.2 Allergy status to sulfonamides; Z88.8 Allergy status to other drugs, medicaments and biological substances; Z79.82 Long term (current) use of aspirin; Z79.899 Other long term (current) drug therapy; Z79.890 Hormone replacement therapy; Z79.02 Long term (current) use of antithrombotics/antiplatelets; Z95.5 Presence of coronary angioplasty implant and graft; Z87.891 Personal history of nicotine dependence; Z82.49 Family history of ischemic heart disease and other diseases of the circulatory system; Z91.09 Other allergy status, other than to drugs and biological substances; Z68.33 Body mass index [BMI] 33.0-33.9, adult; Z79.85 Long-term (current) use of injectable non-insulin antidiabetic drugs
CPT/HCPCS: 80048; 85025; 93458; 99152; C1725; C1769; J1200; J1644; J2003; J3010; J7040; Q9967

== ENCOUNTER 2025-01-27 09:37 | Outpatient (CLI) | payer MEDICARE, SELFPAY ==
[2025-01-27 10:15] LABS: Hematocrit 41.4 % (37.0-47.0); Hemoglobin 13.6 g/dL (12.2-16.2); Immature Granulocytes % 0.2 %; Mean Corpuscular HGB Conc 32.9 g/dL (31.8-35.4); Mean Corpuscular Hemoglobin 30.1 pg (27.0-31.2); Mean Corpuscular Volume 91.6 fl (81-99); Nucleated Red Blood Cells % 0 %; Platelet Count 319 K/mm3 (142-424); Red Blood Count 4.52 M/mm3 (4.20-5.40); Red Cell Distribution Width-SD 42.5 fL; White Blood Count 9.0 K/mm3 (4.8-10.8)
[2025-01-27 10:37] LABS: Alanine Aminotransferase 34 U/L (12-78); Albumin Level 4.8 g/dl (3.5-5.0); Alkaline Phosphatase 79 U/L (38-126); Anion Gap 17.9 mEq/L (5-15); Aspartate Amino Transferase 36 U/L (14-36); Bilirubin,Direct 0.2 mg/dl (0.0-0.4); Bilirubin,Indirect 0.7 mg/dL (0.0-0.9); Bilirubin,Total 0.9 mg/dl (0.2-1.3); Bilirubin,Unconjugated 0.7 mg/dL (0.0-1.1); Blood Urea Nitrogen 19 mg/dl (7-17); Calcium 9.9 mg/dl (8.4-10.2); Carbon Dioxide 26 mmol/L (22.0-30.0); Chloride 104 mmol/L (98-107); Cholesterol 145 mg/dl (140-200); Creatinine,Serum 0.90 mg/dl (0.52-1.04); Estimated Glomerular Filt Rate 62 ml/min (>60); GFR (African American) 76 ML/MIN (>60); Glucose 112 mg/dl (74-100); HDL Cholesterol 47 mg/dl (40-60); Magnesium 1.8 mg/dl (1.6-2.3); Potassium 4.9 mmoL/L (3.5-5.1); Sodium 143 mmol/L (136-145); Total Protein,Serum 7.8 g/dl (6.3-8.2); Triglycerides 173 mg/dl (30-150)
[2025-01-27 10:52] LABS: Free T4 (Free Thyroxine) 1.26 ng/dl (0.78-2.19)
[2025-01-27 11:06] LABS: Thyroid Stimulating Hormone 3.48 uIU/mL (0.465-4.68)
[2025-01-27 11:10] LABS: Hemoglobin A1C 5.8 % (4.0-6.0)
== END 2025-01-27 23:59 | disposition home or self-care (01) ==
LOC: LAB 09:38
PROVIDERS: PCP Nurse Practitioner Family; Visit Provider Physician Assistant
DX: Z13.1 Encounter for screening for diabetes mellitus (principal)
CPT/HCPCS: 36415; 80048; 80061; 80076; 83036; 83735; 84439; 84443; 85025